=== PATIENT | female | born 1955 | race Caucasian/White ===

== ENCOUNTER 2021-09-30 12:13 | Inpatient (IN) ==
[2021-09-30] MEDS ORDERED: FLAGYL IV PREMIX 500 MG BAG 500 MG/100 ML BAG IV ONE ×2 (12:41→13:19)
[2021-09-30] MEDS ORDERED: CHRONULAC PO ONE (12:41)
[2021-09-30 12:52] LABS: AMMONIA 221 umol/L (11-32)
[2021-09-30 12:54] LABS: BASOPHILS % (AUTO) 0.4 % (0.2-1.0); BLOOD UREA NITROGEN 51 mg/dL (7-18); CARBON DIOXIDE 24.2 mmol/L (21-32); CHLORIDE 95 mmol/L (98-107); COR NA(FOR HYPERGLY) 137 mmol/L (136-145); CREATININE 1.63 mg/dL (0.55-1.02); EOSINOPHILS % (AUTO) 0.7 % (0.9-2.9); HEMATOCRIT 30.5 % (36.0-47.0); HEMOGLOBIN 10.9 g/dL (12.0-16.0); LYMPHOCYTES # (AUTO) 0.7 X10^3/uL (1.3-2.9); LYMPHOCYTES % (AUTO) 21.2 % (21.0-51.0); MEAN CORPUSCULAR HEMOGLOBIN 37.1 pg (27.0-34.0); MEAN CORPUSCULAR HGB CONC 35.8 g/dL (33.0-35.0); MEAN CORPUSCULAR VOLUME 103.7 fL (80.0-100.0); MEAN PLATELET VOLUME 7.9 fL (7.4-11.0); MONOCYTES # (AUTO) 0.3 x10^3/uL (0.3-0.8); MONOCYTES % (AUTO) 8.9 % (0.0-13.0); NEUTROPHILS # (AUTO) 2.2 x10^3/uL (2.2-4.8); NEUTROPHILS % (AUTO) 68.8 % (42.0-75.0); RED BLOOD COUNT 2.94 X10^6/uL (3.5-5.4); RED CELL DISTRIBUTION WIDTH 26.3 % (11.6-16.5); SODIUM 134 mmol/L (136-145); WHITE BLOOD COUNT 3.2 X10^3/uL (3.6-10.0); eGFR NON BLACK RACES 34 (>60)
--- NOTE | 2021-09-30 12:57 | CT ---
HISTORYUnresponsiveSTUDYCT head without contrastTechnique: Axial noncontrast images with coronal and sagittal reformats. Dose reduction procedures were used with mA/kv adjusted for body size.[id number] is soft tissue swelling over the left frontal bone extrinsically representing a change from the prior examination. The underlying frontal bone and remainder of the calvarium is intact. The visualized sinuses are clear. The ventricles are normal in size shape and position. There is slight decreased attenuation in the periventricular white matter suggestive of small vessel vascular disease. There are no focal areas of abnormal attenuation to suggest recent or remote CVA, hemorrhage, contusion, mass lesion, or extra-axial fluid collection.IMPRESSIONNo acute intracranial abnormalityMild small vessel diseaseSoft tissue swelling over the left frontal bone extrinsically with no underlying bony abnormality identifiedElectronically signed by: MIGUE VILLALOBOS (Sep 30, 2021 12:55:15)
[2021-09-30 13:17] LABS: ALANINE AMINOTRANSFERASE 116 Units/L (12-78); ALBUMIN 3.8 g/dL (3.4-5.0); ALKALINE PHOSPHATASE 244 Units/L (46-116); ASPARTATE AMINO TRANSFERASE 93 Units/L (15-37); TOTAL PROTEIN 6.6 g/dL (6.4-8.2)
[2021-09-30 13:19] LABS: AMYLASE 88 Units/L (25-115); LIPASE 191 Units/L (73-393)
[2021-09-30] MEDS ORDERED: CHRONULAC ONE (13:19)
[2021-09-30 13:21] LABS: ANISOCYTOSIS 3+; PLATELET MORPHOLOGY COMMENT NORMAL (NORMAL); POIKILOCYTOSIS 1+; SCHISTOCYTES PRESENT
[2021-09-30 13:24] LABS: BILIRUBIN,URINE NEGATIVE (NEGATIVE); BLOOD/HEMOGLOBIN,URINE NEGATIVE (NEGATIVE); GLUCOSE, URINE NEGATIVE (NEGATIVE); KETONES,URINE NEGATIVE (NEGATIVE); LEUKOCYTE ESTERASE ,URINE NEGATIVE (NEGATIVE); NITRITES,URINE NEGATIVE (NEGATIVE); PROTEIN,URINE NEGATIVE (NEGATIVE); UROBILINOGEN,URINE 1+ (NORMAL)
[2021-09-30 13:27] LABS: APPEARANCE,URINE CLEAR (CLEAR); COLOR,URINE YELLOW (YELLOW)
--- NOTE | 2021-09-30 13:54 | RAD ---
HISTORYNG tube placementSTUDYChest AP [id number]/29/2021FINDINGSTher e is a nasogastric tube with its tip and side hole just barely within the stomach. Advancement is recommended for optimal performance. Heart size is normal. Corinne are normal. Lungs are somewhat hypoinflated. Bilateral interstitial infiltrates are present not significantly different from the prior examination considering a difference in film technique. No alveolar infiltrates or pleural effusions are identified. Bony thorax is unremarkable.IMPRESSIONNasogastric tube tip and side port just barely within the stomach. Advancement is recommended.Bilateral interstitial infiltrates unchanged from prior examination considering a difference in film technique.Electronically signed by: MIGUE VILLALOBOS (Sep 30, 2021 13:52:41)
[2021-09-30 13:56] LABS: ABG BASE EXCESS 5.8 mmol/L (-2.0-2.0); ABG HCO3 28.2 mmol/L (22-26)
[2021-09-30 13:57] LABS: ABG ALLEN TEST POS
[2021-09-30] MEDS ORDERED: PROAMATINE PO SCH (16:15)
[2021-09-30] MEDS ORDERED: NEOMYCIN 500 MG NG SCH (17:00)
[2021-09-30 17:18] VITALS: BMI 20.2
--- NOTE | 2021-09-30 17:22 | RAD ---
HISTORYng Tube advancementSTUDYKUBCOMPARISONCT abdomen/pelvis, September 05, 2021TECHNIQUEAP supine projection, 1 imageFINDINGSGas and stool in non-distended colon.Gas in scattered loops of non-distended small bowel.No gross free air.No abnormal calcifications.No acute osseous abnormality.Nasogastric tube tip is in the distal body of the stomach.Metallic stent in the right upper quadrant.IMPRESSIONNonspecific bowel gas pattern. Nasogastric tube tip is in the distal body of the stomach.Electronically signed by: Seven Verma (Sep 30, 2021 17:20:04)
[2021-09-30] MEDS: CHRONULAC NG SCH ×2 (18:30→20:46)
[2021-09-30] MEDS: NS 1,000 ML IV 1,000 ML IV SCH (18:43)
[2021-09-30] MEDS: ALDACTONE TAB 25 MG PO SCH (20:46)
[2021-09-30] MEDS: FLAGYL IV PREMIX 500 MG BAG 500 MG/100 ML BAG IV SCH (20:46)
[2021-09-30] MEDS: XIFAXAN PO SCH (20:46)
[2021-10-01] MEDS: NS 1,000 ML IV 1,000 ML IV SCH ×3 (03:50→17:59)
[2021-10-01] MEDS: FLAGYL IV PREMIX 500 MG BAG 500 MG/100 ML BAG IV SCH ×4 (03:50→20:24)
[2021-10-01 06:48] LABS: CALCIUM 9.1 mg/dL (8.5-10.1); CARBON DIOXIDE 23.7 mmol/L (21-32); CREATININE 1.33 mg/dL (0.55-1.02)
[2021-10-01 06:57] LABS: BASOPHILS % (AUTO) 0.3 % (0.2-1.0); EOSINOPHILS # (AUTO) 0.1 x10^3/uL (0.0-0.2); EOSINOPHILS % (AUTO) 2.1 % (0.9-2.9); HEMATOCRIT 24.1 % (36.0-47.0); HEMOGLOBIN 8.7 g/dL (12.0-16.0); LYMPHOCYTES # (AUTO) 0.7 X10^3/uL (1.3-2.9); LYMPHOCYTES % (AUTO) 20.1 % (21.0-51.0); MEAN CORPUSCULAR HEMOGLOBIN 37.4 pg (27.0-34.0); MEAN CORPUSCULAR HGB CONC 36.1 g/dL (33.0-35.0); MEAN CORPUSCULAR VOLUME 103.7 fL (80.0-100.0); MEAN PLATELET VOLUME 7.8 fL (7.4-11.0); MONOCYTES # (AUTO) 0.4 x10^3/uL (0.3-0.8); MONOCYTES % (AUTO) 11.9 % (0.0-13.0); NEUTROPHILS # (AUTO) 2.4 x10^3/uL (2.2-4.8); NEUTROPHILS % (AUTO) 65.6 % (42.0-75.0); RED BLOOD COUNT 2.33 X10^6/uL (3.5-5.4); RED CELL DISTRIBUTION WIDTH 27.5 % (11.6-16.5); WHITE BLOOD COUNT 3.7 X10^3/uL (3.6-10.0)
[2021-10-01 07:15] LABS: ALBUMIN 3.1 g/dL (3.4-5.0); COR CA(FOR HYPOALB) 9.8 mg/dL (8.5-10.1); TOTAL PROTEIN 5.6 g/dL (6.4-8.2)
[2021-10-01 07:16] LABS: PLATELET MORPHOLOGY COMMENT NORMAL (NORMAL)
[2021-10-01 07:17] LABS: ANISOCYTOSIS 3+; POIKILOCYTOSIS 1+
[2021-10-01] MEDS: ALDACTONE TAB 25 MG PO SCH ×2 (08:02→20:24)
[2021-10-01] MEDS: CHRONULAC NG SCH ×4 (08:03→20:24)
[2021-10-01] MEDS: PriLOSEC PO SCH (08:04)
[2021-10-01] MEDS: VITAMIN D3 25 mcg (1,000 UNITS) PO SCH (08:04)
[2021-10-01] MEDS: ZINC SULFATE PO SCH (08:05)
[2021-10-01] MEDS: XIFAXAN PO SCH ×2 (08:05→20:25)
[2021-10-01 11:43] LABS: CKMB % 0.7 % (<4); CREATINE KINASE MB 2.3 ng/mL (0-4.0)
[2021-10-01 17:40] LABS: CKMB % 0.7 % (<4); CREATINE KINASE MB 2.3 ng/mL (0-4.0)
[2021-10-01] MEDS: PROVENTIL NEB TX 0.083% 2.5MG/ 3ML NEB PRN (20:42)
[2021-10-01 23:21] LABS: CKMB % 0.6 % (<4); CREATINE KINASE MB 1.6 ng/mL (0-4.0)
[2021-10-02] MEDS ORDERED: ULTRAM PO PRN (03:49)
[2021-10-02] MEDS: NS 1,000 ML IV 1,000 ML IV SCH ×2 (03:49→05:09)
[2021-10-02] MEDS: FLAGYL IV PREMIX 500 MG BAG 500 MG/100 ML BAG IV SCH ×4 (03:49→20:29)
[2021-10-02] MEDS ORDERED: ULTRAM ONE (03:54)
[2021-10-02 06:03] LABS: BASOPHILS % (AUTO) 0.5 % (0.2-1.0); EOSINOPHILS # (AUTO) 0.1 x10^3/uL (0.0-0.2); HEMATOCRIT 21.9 % (36.0-47.0); HEMOGLOBIN 7.8 g/dL (12.0-16.0); LYMPHOCYTES # (AUTO) 0.6 X10^3/uL (1.3-2.9); LYMPHOCYTES % (AUTO) 24.2 % (21.0-51.0); MEAN CORPUSCULAR HEMOGLOBIN 37.4 pg (27.0-34.0); MEAN CORPUSCULAR HGB CONC 35.6 g/dL (33.0-35.0); MEAN PLATELET VOLUME 7.9 fL (7.4-11.0); MONOCYTES # (AUTO) 0.3 x10^3/uL (0.3-0.8); NEUTROPHILS # (AUTO) 1.5 x10^3/uL (2.2-4.8); NEUTROPHILS % (AUTO) 60.3 % (42.0-75.0); RED BLOOD COUNT 2.09 X10^6/uL (3.5-5.4); RED CELL DISTRIBUTION WIDTH 26.1 % (11.6-16.5); WHITE BLOOD COUNT 2.5 X10^3/uL (3.6-10.0)
[2021-10-02 06:31] LABS: BLOOD UREA NITROGEN 27 mg/dL (7-18); CALCIUM 8.6 mg/dL (8.5-10.1); CARBON DIOXIDE 24.1 mmol/L (21-32); CHLORIDE 108 mmol/L (98-107); COR NA(FOR HYPERGLY) 146 mmol/L (136-145); CREATININE 0.92 mg/dL (0.55-1.02); SODIUM 142 mmol/L (136-145); eGFR NON BLACK RACES > 60 (>60)
[2021-10-02 06:36] LABS: AMMONIA 48 umol/L (11-32)
[2021-10-02 06:40] LABS: PLATELET MORPHOLOGY COMMENT NORMAL (NORMAL)
[2021-10-02 06:41] LABS: ANISOCYTOSIS 3+; POIKILOCYTOSIS SLIGHT
[2021-10-02] MEDS ORDERED: K-RIDER 10 MEQ/NS 100 ML 10 MEQ/100 ML BAG IV PRN (06:46)
[2021-10-02] MEDS ORDERED: K-DUR TAB 20 MEQ PO PRN (06:46)
[2021-10-02] MEDS ORDERED: POTASSIUM CHL 60 MEQ/NS 0.45% 500 ML IV PRN (06:46)
[2021-10-02] MEDS ORDERED: MICRO K EXTEN CAP 10 MEQ PO PRN (06:46)
[2021-10-02] MEDS ORDERED: POTASSIUM CHLORIDE LIQ 20 MEQ UDC PO PRN (06:46)
[2021-10-02] MEDS ORDERED: KLOR-CON PO PRN (06:46)
[2021-10-02] MEDS ORDERED: POTASSIUM CHL 40 MEQ/NS 0.45% 500 ML IV PRN (06:46)
[2021-10-02 07:28] LABS: ALANINE AMINOTRANSFERASE 79 Units/L (12-78); ALBUMIN 2.9 g/dL (3.4-5.0); ALKALINE PHOSPHATASE 179 Units/L (46-116); ASPARTATE AMINO TRANSFERASE 60 Units/L (15-37); COR CA(FOR HYPOALB) 9.5 mg/dL (8.5-10.1); TOTAL PROTEIN 5.3 g/dL (6.4-8.2)
[2021-10-02] MEDS: ALDACTONE TAB 25 MG PO SCH ×2 (09:28→20:29)
[2021-10-02] MEDS: ZINC SULFATE PO SCH (09:29)
[2021-10-02] MEDS: PriLOSEC PO SCH (09:29)
[2021-10-02] MEDS: XIFAXAN PO SCH ×2 (09:29→20:29)
[2021-10-02] MEDS: VITAMIN D3 25 mcg (1,000 UNITS) PO SCH (09:29)
[2021-10-02] MEDS: CHRONULAC NG SCH ×4 (09:59→20:29)
[2021-10-02] MEDS: NovoLIN R (or HumuLIN R) SUBCUT PRN ×2 (11:45→20:30)
[2021-10-02 16:38] LABS: HEMATOCRIT 22.8 % (36.0-47.0); HEMOGLOBIN 8.1 g/dL (12.0-16.0)
[2021-10-02] MEDS: MAGNESIUM SULFATE 1 GRAM/100 mL PREMIX 1 G/100 ML BAG IV PRN ×2 (19:47→22:41)
[2021-10-02] MEDS ORDERED: MIRAPEX TAB 1 MG PO SCH (21:00)
[2021-10-03] MEDS: MAGNESIUM SULFATE 1 GRAM/100 mL PREMIX 1 G/100 ML BAG IV PRN ×2 (01:17→02:24)
[2021-10-03] MEDS: FLAGYL IV PREMIX 500 MG BAG 500 MG/100 ML BAG IV SCH ×2 (03:02→08:22)
[2021-10-03 06:35] LABS: BASOPHILS % (AUTO) 0.5 % (0.2-1.0); EOSINOPHILS # (AUTO) 0.1 x10^3/uL (0.0-0.2); EOSINOPHILS % (AUTO) 4.6 % (0.9-2.9); HEMATOCRIT 22.6 % (36.0-47.0); LYMPHOCYTES # (AUTO) 0.7 X10^3/uL (1.3-2.9); LYMPHOCYTES % (AUTO) 25.6 % (21.0-51.0); MEAN CORPUSCULAR HEMOGLOBIN 37.7 pg (27.0-34.0); MEAN CORPUSCULAR HGB CONC 35.3 g/dL (33.0-35.0); MEAN CORPUSCULAR VOLUME 106.8 fL (80.0-100.0); MEAN PLATELET VOLUME 7.6 fL (7.4-11.0); MONOCYTES # (AUTO) 0.3 x10^3/uL (0.3-0.8); MONOCYTES % (AUTO) 12.2 % (0.0-13.0); NEUTROPHILS # (AUTO) 1.6 x10^3/uL (2.2-4.8); NEUTROPHILS % (AUTO) 57.1 % (42.0-75.0); RED BLOOD COUNT 2.12 X10^6/uL (3.5-5.4); RED CELL DISTRIBUTION WIDTH 26.1 % (11.6-16.5); WHITE BLOOD COUNT 2.7 X10^3/uL (3.6-10.0)
[2021-10-03 06:44] LABS: AMMONIA 38 umol/L (11-32)
[2021-10-03 06:56] LABS: ALANINE AMINOTRANSFERASE 70 Units/L (12-78); ALKALINE PHOSPHATASE 171 Units/L (46-116); ASPARTATE AMINO TRANSFERASE 55 Units/L (15-37); BLOOD UREA NITROGEN 15 mg/dL (7-18); CALCIUM 8.3 mg/dL (8.5-10.1); CARBON DIOXIDE 23.5 mmol/L (21-32); CHLORIDE 111 mmol/L (98-107); COR CA(FOR HYPOALB) 9.1 mg/dL (8.5-10.1); COR NA(FOR HYPERGLY) 146 mmol/L (136-145); MAGNESIUM 2.1 mg/dL (1.7-2.9); SODIUM 144 mmol/L (136-145); TOTAL PROTEIN 5.3 g/dL (6.4-8.2); eGFR NON BLACK RACES > 60 (>60)
[2021-10-03 07:37] LABS: PLATELET MORPHOLOGY COMMENT NORMAL (NORMAL)
[2021-10-03 07:38] LABS: ANISOCYTOSIS 2+
[2021-10-03 07:39] LABS: POIKILOCYTOSIS SLIGHT
[2021-10-03 07:46] VITALS: BP 125/60
[2021-10-03] MEDS: ALDACTONE TAB 25 MG PO SCH (08:21)
[2021-10-03] MEDS: PriLOSEC PO SCH (08:22)
[2021-10-03] MEDS: CHRONULAC NG SCH (08:22)
[2021-10-03] MEDS: VITAMIN D3 25 mcg (1,000 UNITS) PO SCH (08:23)
[2021-10-03] MEDS: XIFAXAN PO SCH (08:23)
[2021-10-03] MEDS: ZINC SULFATE PO SCH (08:23)
[2021-10-03] MEDS: PROVENTIL NEB TX 0.083% 2.5MG/ 3ML NEB PRN (08:40)
--- NOTE | 2021-10-23 13:13 | DR.H&P ---
H&P History & Physical for Day of: H&P Date: 09/30/21 Chief Complaint Chief Complaint: Unresponsive Allergies Allergies Allergy/AdvReac Type Severity Reaction Status Date / Time aspirin Allergy Verified 07/28/21 12:48 codeine Allergy Verified 07/28/21 12:48 iodine Allergy Verified 07/28/21 12:48 latex Allergy Verified 07/28/21 12:48 mushroom Allergy Verified 07/28/21 13:28 NSAIDS (Non-Steroidal Allergy Verified 07/28/21 12:48 Anti-Inflamma Penicillins Allergy Verified 07/28/21 12:48 rice Allergy Verified 07/28/21 13:28 Sulfa (Sulfonamide Allergy Verified 07/28/21 12:48 Antibiotics) [SULFA] History of Present Illness History of Present Illness: This is a 65 yo wf with a hx of chronic liver failure and liver cirrhosis. Today her ammonia level is greater than 200 causing her to have hepatic encephalopathy. She was previously on a liver transplant list at [place] in [place] but has recently been taken off because of multiple medical problems. Past Medical History Past Medical History: Diabetes and Liver Disease Past Surgical History Surgical History: Hysterectomy and Ortho Surgery Family History Family Medical History: Diabetes Mellitus and Coronary Artery Disease Social History Does patient currently use any type of tobacco product: No Have you used tobacco products in the last 12 months: No Alcohol Use: None Drug Use: None Medications Home Medications: aspirin Allergy (Verified 07/28/21 12:48) codeine Allergy (Verified 07/28/21 12:48) iodine Allergy (Verified 07/28/21 12:48) latex Allergy (Verified 07/28/21 12:48) mushroom Allergy (Verified 07/28/21 13:28) NSAIDS (Non-Steroidal Anti-Inflamma Allergy (Verified 07/28/21 12:48) Penicillins Allergy (Verified 07/28/21 12:48) rice Allergy (Verified 07/28/21 13:28) Sulfa (Sulfonamide Antibiotics) [SULFA] Allergy (Verified 07/28/21 12:48) CONTINUE taking the following medications Humalog U-100 Insulin See Rx Instructions .ROUTE .COMPLEX 09/30/21 [History] Lantus U-100 Insulin 24 unit SUBCUT HS 09/30/21 [History] albuterol 90 mcg INHALATION Q6H PRN 09/30/21 [History] midodrine 15 mg PO Q8H 09/30/21 [History] omeprazole 20 mg PO DAILY 09/30/21 [History] zinc 50 mg PO DAILY 09/30/21 [History] furosemide 80 mg PO BID 10/01/21 [History] pramipexole 1 mg PO HS 10/01/21 [History] Labs Result Diagrams: 10/03/21 06:05 10/03/21 06:05 Labs: Laboratory WBC 2.7 X10^3/uL (3.6-10.0) L 10/03/21 06:05 RBC 2.12 X10^6/uL (3.5-5.4) L 10/03/21 06:05 Hgb 8.0 g/dL (12.0-16.0) L 10/03/21 06:05 Hct 22.6 % (36.0-47.0) L 10/03/21 06:05 MCV 106.8 fL (80.0-100.0) H 10/03/21 06:05 MCH 37.7 pg (27.0-34.0) H 10/03/21 06:05 MCHC 35.3 g/dL (33.0-35.0) H 10/03/21 06:05 RDW 26.1 % (11.6-16.5) H 10/03/21 06:05 Plt Count 86 X10^3/uL (150.0-450.0) L 10/03/21 06:05 Plt Count Comment Decreased (ADEQUATE) A 10/03/21 06:05 MPV 7.6 fL (7.4-11.0) 10/03/21 06:05 Neut % (Auto) 57.1 % (42.0-75.0) 10/03/21 06:05 Lymph % (Auto) 25.6 % (21.0-51.0) 10/03/21 06:05 [place] % (Auto) 12.2 % (0.0-13.0) 10/03/21 06:05 Eos % (Auto) 4.6 % (0.9-2.9) H 10/03/21 06:05 Baso % (Auto) 0.5 % (0.2-1.0) 10/03/21 06:05 Neut # (Auto) 1.6 x10^3/uL (2.2-4.8) L 10/03/21 06:05 Lymph # (Auto) 0.7 X10^3/uL (1.3-2.9) L 10/03/21 06:05 [place] # (Auto) 0.3 x10^3/uL (0.3-0.8) 10/03/21 06:05 Eos # (Auto) 0.1 x10^3/uL (0.0-0.2) 10/03/21 06:05 Baso # (Auto) 0.0 X10^3/uL (0.0-0.1) 10/03/21 06:05 Absolute Nucleated RBC 0.4 /100WBC 10/03/21 06:05 Plt Morphology Comment Normal (NORMAL) 10/03/21 06:05 RBC Morphology Abnormal (NORMAL) A 10/03/21 06:05 Poikilocytosis Slight A 10/03/21 06:05 Anisocytosis 2+ A 10/03/21 06:05 Macrocytosis 1+ A 10/03/21 06:05 Schistocytes Present 09/30/21 12:30 PT 17.3 SECONDS (11.8-14.3) 09/30/21 12:30 INR Target Range - 09/30/21 12:30 INR 1.49 (0.8-1.3) H 09/30/21 12:30 APTT 33.9 SECONDS (22.9-36.5) 09/30/21 12:30 PTT Comment - 09/30/21 12:30 Sample Site Rra 09/30/21 13:51 ABG pH 7.540 (7.35-7.45) H 09/30/21 13:51 ABG pCO2 33.0 mmHg (35.0-45.0) L 09/30/21 13:51 ABG pO2 103.0 mmHg (80.0-100.0) H 09/30/21 13:51 ABG HCO3 28.2 mmol/L (22-26) H 09/30/21 13:51 ABG O2 Saturation 99.0 % (90-100) 09/30/21 13:51 ABG Base Excess 5.8 mmol/L (-2.0-2.0) H 09/30/21 13:51 Juan Carlos Test Pos 09/30/21 13:51 A-a Gradient 5.0 mmHg 09/30/21 13:51 FiO2 21.0 09/30/21 13:51 Blood Gas Comments 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,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 09/30/21 13:51 Sodium 144 mmol/L (136-145) 10/03/21 06:05 Corrected Sodium 146 mmol/L (136-145) H 10/03/21 06:05 Potassium 3.9 mmol/L (3.5-5.1) 10/03/21 06:05 Chloride 111 mmol/L (98-107) H 10/03/21 06:05 Carbon Dioxide 23.5 mmol/L (21-32) 10/03/21 06:05 BUN 15 mg/dL (7-18) 10/03/21 06:05 Creatinine 0.80 mg/dL (0.55-1.02) 10/03/21 06:05 Est GFR (MDRD) Af Amer > 60 (>60) 10/03/21 06:05 Est GFR (MDRD) Non-Af > 60 (>60) 10/03/21 06:05 Glucose 164 mg/dL (65-99) H 10/03/21 06:05 POC Glucose (mg/dL) 148 mg/dL (65-99) H 10/03/21 05:29 Calcium 8.3 mg/dL (8.5-10.1) L 10/03/21 06:05 Corrected Calcium 9.1 mg/dL (8.5-10.1) 10/03/21 06:05 Magnesium 2.1 mg/dL (1.7-2.9) 10/03/21 06:05 Total Bilirubin 4.90 mg/dL (0.2-1.0) H 10/03/21 06:05 AST 55 Units/L (15-37) H 10/03/21 06:05 ALT 70 Units/L (12-78) 10/03/21 06:05 Alkaline Phosphatase 171 Units/L (46-116) H 10/03/21 06:05 Ammonia 38 umol/L (11-32) H 10/03/21 06:05 Creatine Kinase 250 Units/L (26-192) H 10/01/21 22:40 CK-MB (CK-2) 1.6 ng/mL (0-4.0) 10/01/21 22:40 CK/CKMB % Calc 0.6 % (<4) 10/01/21 22:40 Troponin I High Sens 17.6 ng/L (4.0-60.0) 10/01/21 22:40 Total Protein 5.3 g/dL (6.4-8.2) L 10/03/21 06:05 Albumin 3.0 g/dL (3.4-5.0) L 10/03/21 06:05 Globulin 2.3 g/dL (2.5-4.5) L 10/03/21 06:05 Albumin/Globulin Ratio 1.3 Ratio (1.1-2.1) 10/03/21 06:05 Amylase 88 Units/L (25-115) 09/30/21 12:30 Lipase 191 Units/L (73-393) 09/30/21 12:30 Specimen Type Catherized urine 09/30/21 13:15 Urine Color Yellow (YELLOW) 09/30/21 13:15 Urine Appearance Clear (CLEAR) 09/30/21 13:15 Urine pH 7.0 (5.0 - 8.0) 09/30/21 13:15 Ur Specific [place] 1.010 (1.000-1.030) 09/30/21 13:15 Urine Protein Negative (NEGATIVE) 09/30/21 13:15 Urine Glucose (UA) Negative (NEGATIVE) 09/30/21 13:15 Urine Ketones Negative (NEGATIVE) 09/30/21 13:15 Urine Occult Blood Negative (NEGATIVE) 09/30/21 13:15 Urine Nitrite Negative (NEGATIVE) 09/30/21 13:15 Urine Bilirubin Negative (NEGATIVE) 09/30/21 13:15 Urine Urobilinogen 1+ (NORMAL) 09/30/21 13:15 Ur Leukocyte Esterase Negative (NEGATIVE) 09/30/21 13:15 SARS CoV-2 RNA Rapid NATAYLA Negative (NEGATIVE) 09/30/21 13:00 Review of Systems Constitutional: No Symptoms Reported Eyes: No Symptoms Reported ENT: No Symptoms Reported Respiratory: No Symptoms Reported Cardiovascular: No Symptoms Reported Gastrointestinal: No Symptoms Reported Genitourinary: No Symptoms Reported Musculoskeletal: No Symptoms Reported Skin: No Symptoms Reported Neurological: Confusion Physical Exam Vital Signs: Temperature 98.9 F Pulse Rate [Left Brachial] 80 Pulse Rate 100 Respiratory Rate 22 Blood Pressure [Right Arm] 125/60 Blood Pressure 139/65 O2 Sat by Pulse Oximetry 97 Oriented: Not Oriented Eyes: Normal Ear: Normal Nose: Normal Throat: Normal Respiratory: Clear Throughout Cardiovascular: Normal : Normal Auscultation: Bowel Sounds: Normal Palpation: Normal Tenderness: Normal Skin: Normal Musculoskeletal: Instability Psychiatric: Other (unresponsive) Affect: Quiet Speech Pattern: Unclear Assessment/Plan (1) Cirrhosis of liver: Status: Acute (2) Encephalopathy, hepatic: Status: Resolved Plan: Po lactulose and check daily ammonia levels. (3) Anemia: Qualifiers: Anemia type: unspecified type Qualified Code(s): D64.9 - Anemia, unspecified Status: Acute Plan: Monitor Hb (4) DM2 (diabetes mellitus, type 2): Status: Acute Plan: Insulin sliding scale.
--- NOTE | 2021-10-23 13:17 | PCM.PROG ---
Progress Note Progress Note for Day of Date of Exam: 10/01/21 Subjective Subjective: patient is still confused this am. Ammonia is down to 62 this am from 221. Will continue IVF and PO Lactulose at this time. Past Medical Family Social History Past Med/Fam/Surg Hx: No changes since H&P Allergies: Allergies aspirin Allergy (Verified 07/28/21 12:48) codeine Allergy (Verified 07/28/21 12:48) iodine Allergy (Verified 07/28/21 12:48) latex Allergy (Verified 07/28/21 12:48) mushroom Allergy (Verified 07/28/21 13:28) NSAIDS (Non-Steroidal Anti-Inflamma Allergy (Verified 07/28/21 12:48) Penicillins Allergy (Verified 07/28/21 12:48) rice Allergy (Verified 07/28/21 13:28) Sulfa (Sulfonamide Antibiotics) [SULFA] Allergy (Verified 07/28/21 12:48) Review of Systems ROS: No change since H&P Vital Signs and I&O's Vital Signs: Temperature 98.9 F Pulse Rate [Left Brachial] 80 Pulse Rate 100 Respiratory Rate 22 Blood Pressure [Right Arm] 125/60 Blood Pressure 139/65 O2 Sat by Pulse Oximetry 97 Physical Exam Oriented: Not Oriented Eyes: Normal Ear: Normal Nose: Normal Throat: Normal Cardiovascular: Normal : Normal Auscultation: Bowel Sounds: Normal Tenderness: Normal Skin: Normal Musculoskeletal: Instability Psychiatric: Other (unresponsive) Affect: Quiet Speech Pattern: Unclear Laboratory and Diagnostics Result Diagrams: 10/03/21 06:05 10/03/21 06:05 Labs: Laboratory WBC 2.7 X10^3/uL (3.6-10.0) L 10/03/21 06:05 RBC 2.12 X10^6/uL (3.5-5.4) L 10/03/21 06:05 Hgb 8.0 g/dL (12.0-16.0) L 10/03/21 06:05 Hct 22.6 % (36.0-47.0) L 10/03/21 06:05 MCV 106.8 fL (80.0-100.0) H 10/03/21 06:05 MCH 37.7 pg (27.0-34.0) H 10/03/21 06:05 MCHC 35.3 g/dL (33.0-35.0) H 10/03/21 06:05 RDW 26.1 % (11.6-16.5) H 10/03/21 06:05 Plt Count 86 X10^3/uL (150.0-450.0) L 10/03/21 06:05 Plt Count Comment Decreased (ADEQUATE) A 10/03/21 06:05 MPV 7.6 fL (7.4-11.0) 10/03/21 06:05 Neut % (Auto) 57.1 % (42.0-75.0) 10/03/21 06:05 Lymph % (Auto) 25.6 % (21.0-51.0) 10/03/21 06:05 [place] % (Auto) 12.2 % (0.0-13.0) 10/03/21 06:05 Eos % (Auto) 4.6 % (0.9-2.9) H 10/03/21 06:05 Baso % (Auto) 0.5 % (0.2-1.0) 10/03/21 06:05 Neut # (Auto) 1.6 x10^3/uL (2.2-4.8) L 10/03/21 06:05 Lymph # (Auto) 0.7 X10^3/uL (1.3-2.9) L 10/03/21 06:05 [place] # (Auto) 0.3 x10^3/uL (0.3-0.8) 10/03/21 06:05 Eos # (Auto) 0.1 x10^3/uL (0.0-0.2) 10/03/21 06:05 Baso # (Auto) 0.0 X10^3/uL (0.0-0.1) 10/03/21 06:05 Absolute Nucleated RBC 0.4 /100WBC 10/03/21 06:05 Plt Morphology Comment Normal (NORMAL) 10/03/21 06:05 RBC Morphology Abnormal (NORMAL) A 10/03/21 06:05 Poikilocytosis Slight A 10/03/21 06:05 Anisocytosis 2+ A 10/03/21 06:05 Macrocytosis 1+ A 10/03/21 06:05 Schistocytes Present 09/30/21 12:30 PT 17.3 SECONDS (11.8-14.3) 09/30/21 12:30 INR Target Range - 09/30/21 12:30 INR 1.49 (0.8-1.3) H 09/30/21 12:30 APTT 33.9 SECONDS (22.9-36.5) 09/30/21 12:30 PTT Comment - 09/30/21 12:30 Sample Site Rra 09/30/21 13:51 ABG pH 7.540 (7.35-7.45) H 09/30/21 13:51 ABG pCO2 33.0 mmHg (35.0-45.0) L 09/30/21 13:51 ABG pO2 103.0 mmHg (80.0-100.0) H 09/30/21 13:51 ABG HCO3 28.2 mmol/L (22-26) H 09/30/21 13:51 ABG O2 Saturation 99.0 % (90-100) 09/30/21 13:51 ABG Base Excess 5.8 mmol/L (-2.0-2.0) H 09/30/21 13:51 Juan Carlos Test Pos 09/30/21 13:51 A-a Gradient 5.0 mmHg 09/30/21 13:51 FiO2 21.0 09/30/21 13:51 Blood Gas Comments 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,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 09/30/21 13:51 Sodium 144 mmol/L (136-145) 10/03/21 06:05 Corrected Sodium 146 mmol/L (136-145) H 10/03/21 06:05 Potassium 3.9 mmol/L (3.5-5.1) 10/03/21 06:05 Chloride 111 mmol/L (98-107) H 10/03/21 06:05 Carbon Dioxide 23.5 mmol/L (21-32) 10/03/21 06:05 BUN 15 mg/dL (7-18) 10/03/21 06:05 Creatinine 0.80 mg/dL (0.55-1.02) 10/03/21 06:05 Est GFR (MDRD) Af Amer > 60 (>60) 10/03/21 06:05 Est GFR (MDRD) Non-Af > 60 (>60) 10/03/21 06:05 Glucose 164 mg/dL (65-99) H 10/03/21 06:05 POC Glucose (mg/dL) 148 mg/dL (65-99) H 10/03/21 05:29 Calcium 8.3 mg/dL (8.5-10.1) L 10/03/21 06:05 Corrected Calcium 9.1 mg/dL (8.5-10.1) 10/03/21 06:05 Magnesium 2.1 mg/dL (1.7-2.9) 10/03/21 06:05 Total Bilirubin 4.90 mg/dL (0.2-1.0) H 10/03/21 06:05 AST 55 Units/L (15-37) H 10/03/21 06:05 ALT 70 Units/L (12-78) 10/03/21 06:05 Alkaline Phosphatase 171 Units/L (46-116) H 10/03/21 06:05 Ammonia 38 umol/L (11-32) H 10/03/21 06:05 Creatine Kinase 250 Units/L (26-192) H 10/01/21 22:40 CK-MB (CK-2) 1.6 ng/mL (0-4.0) 10/01/21 22:40 CK/CKMB % Calc 0.6 % (<4) 10/01/21 22:40 Troponin I High Sens 17.6 ng/L (4.0-60.0) 10/01/21 22:40 Total Protein 5.3 g/dL (6.4-8.2) L 10/03/21 06:05 Albumin 3.0 g/dL (3.4-5.0) L 10/03/21 06:05 Globulin 2.3 g/dL (2.5-4.5) L 10/03/21 06:05 Albumin/Globulin Ratio 1.3 Ratio (1.1-2.1) 10/03/21 06:05 Amylase 88 Units/L (25-115) 09/30/21 12:30 Lipase 191 Units/L (73-393) 09/30/21 12:30 Specimen Type Catherized urine 09/30/21 13:15 Urine Color Yellow (YELLOW) 09/30/21 13:15 Urine Appearance Clear (CLEAR) 09/30/21 13:15 Urine pH 7.0 (5.0 - 8.0) 09/30/21 13:15 Ur Specific [place] 1.010 (1.000-1.030) 09/30/21 13:15 Urine Protein Negative (NEGATIVE) 09/30/21 13:15 Urine Glucose (UA) Negative (NEGATIVE) 09/30/21 13:15 Urine Ketones Negative (NEGATIVE) 09/30/21 13:15 Urine Occult Blood Negative (NEGATIVE) 09/30/21 13:15 Urine Nitrite Negative (NEGATIVE) 09/30/21 13:15 Urine Bilirubin Negative (NEGATIVE) 09/30/21 13:15 Urine Urobilinogen 1+ (NORMAL) 09/30/21 13:15 Ur Leukocyte Esterase Negative (NEGATIVE) 09/30/21 13:15 SARS CoV-2 RNA Rapid NATALYA Negative (NEGATIVE) 09/30/21 13:00 Radiology Reviewed: Yes Plan (1) Cirrhosis of liver: Status: Acute (2) Encephalopathy, hepatic: Status: Resolved Plan: Po lactulose and check daily ammonia levels. (3) Anemia: Status: Acute Qualifiers: Anemia type: unspecified type Qualified Code(s): D64.9 - Anemia, unspecified Plan: Monitor Hb (4) DM2 (diabetes mellitus, type 2): Status: Acute Plan: Insulin sliding scale.
--- NOTE | 2021-10-23 13:22 | PCM.PROG ---
Progress Note Progress Note for Day of Date of Exam: 10/02/21 Subjective Subjective: Patient is not confused this am. Ammonia is down to 48 this am from 62. Will continue IVF and PO Lactulose at this time. Patient reports she feels much better now. No acute problems overnight. Will plan on discharge home in 1-2 days when her ammonia level normalizes. Past Medical Family Social History Past Med/Fam/Surg Hx: No changes since H&P Allergies: Allergies aspirin Allergy (Verified 07/28/21 12:48) codeine Allergy (Verified 07/28/21 12:48) iodine Allergy (Verified 07/28/21 12:48) latex Allergy (Verified 07/28/21 12:48) mushroom Allergy (Verified 07/28/21 13:28) NSAIDS (Non-Steroidal Anti-Inflamma Allergy (Verified 07/28/21 12:48) Penicillins Allergy (Verified 07/28/21 12:48) rice Allergy (Verified 07/28/21 13:28) Sulfa (Sulfonamide Antibiotics) [SULFA] Allergy (Verified 07/28/21 12:48) Review of Systems ROS: No change since H&P Vital Signs and I&O's Vital Signs: Temperature 98.9 F Pulse Rate [Left Brachial] 80 Pulse Rate 100 Respiratory Rate 22 Blood Pressure [Right Arm] 125/60 Blood Pressure 139/65 O2 Sat by Pulse Oximetry 97 Physical Exam Oriented: Not Oriented Eyes: Normal Ear: Normal Nose: Normal Throat: Normal Cardiovascular: Normal : Normal Auscultation: Bowel Sounds: Normal Tenderness: Normal Skin: Normal Musculoskeletal: Instability Psychiatric: Other (unresponsive) Affect: Quiet Speech Pattern: Unclear Laboratory and Diagnostics Result Diagrams: 10/03/21 06:05 10/03/21 06:05 Labs: Laboratory WBC 2.7 X10^3/uL (3.6-10.0) L 10/03/21 06:05 RBC 2.12 X10^6/uL (3.5-5.4) L 10/03/21 06:05 Hgb 8.0 g/dL (12.0-16.0) L 10/03/21 06:05 Hct 22.6 % (36.0-47.0) L 10/03/21 06:05 MCV 106.8 fL (80.0-100.0) H 10/03/21 06:05 MCH 37.7 pg (27.0-34.0) H 10/03/21 06:05 MCHC 35.3 g/dL (33.0-35.0) H 10/03/21 06:05 RDW 26.1 % (11.6-16.5) H 10/03/21 06:05 Plt Count 86 X10^3/uL (150.0-450.0) L 10/03/21 06:05 Plt Count Comment Decreased (ADEQUATE) A 10/03/21 06:05 MPV 7.6 fL (7.4-11.0) 10/03/21 06:05 Neut % (Auto) 57.1 % (42.0-75.0) 10/03/21 06:05 Lymph % (Auto) 25.6 % (21.0-51.0) 10/03/21 06:05 [place] % (Auto) 12.2 % (0.0-13.0) 10/03/21 06:05 Eos % (Auto) 4.6 % (0.9-2.9) H 10/03/21 06:05 Baso % (Auto) 0.5 % (0.2-1.0) 10/03/21 06:05 Neut # (Auto) 1.6 x10^3/uL (2.2-4.8) L 10/03/21 06:05 Lymph # (Auto) 0.7 X10^3/uL (1.3-2.9) L 10/03/21 06:05 [place] # (Auto) 0.3 x10^3/uL (0.3-0.8) 10/03/21 06:05 Eos # (Auto) 0.1 x10^3/uL (0.0-0.2) 10/03/21 06:05 Baso # (Auto) 0.0 X10^3/uL (0.0-0.1) 10/03/21 06:05 Absolute Nucleated RBC 0.4 /100WBC 10/03/21 06:05 Plt Morphology Comment Normal (NORMAL) 10/03/21 06:05 RBC Morphology Abnormal (NORMAL) A 10/03/21 06:05 Poikilocytosis Slight A 10/03/21 06:05 Anisocytosis 2+ A 10/03/21 06:05 Macrocytosis 1+ A 10/03/21 06:05 Schistocytes Present 09/30/21 12:30 PT 17.3 SECONDS (11.8-14.3) 09/30/21 12:30 INR Target Range - 09/30/21 12:30 INR 1.49 (0.8-1.3) H 09/30/21 12:30 APTT 33.9 SECONDS (22.9-36.5) 09/30/21 12:30 PTT Comment - 09/30/21 12:30 Sample Site Rra 09/30/21 13:51 ABG pH 7.540 (7.35-7.45) H 09/30/21 13:51 ABG pCO2 33.0 mmHg (35.0-45.0) L 09/30/21 13:51 ABG pO2 103.0 mmHg (80.0-100.0) H 09/30/21 13:51 ABG HCO3 28.2 mmol/L (22-26) H 09/30/21 13:51 ABG O2 Saturation 99.0 % (90-100) 09/30/21 13:51 ABG Base Excess 5.8 mmol/L (-2.0-2.0) H 09/30/21 13:51 Juan Carlos Test Pos 09/30/21 13:51 A-a Gradient 5.0 mmHg 09/30/21 13:51 FiO2 21.0 09/30/21 13:51 Blood Gas Comments 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,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 09/30/21 13:51 Sodium 144 mmol/L (136-145) 10/03/21 06:05 Corrected Sodium 146 mmol/L (136-145) H 10/03/21 06:05 Potassium 3.9 mmol/L (3.5-5.1) 10/03/21 06:05 Chloride 111 mmol/L (98-107) H 10/03/21 06:05 Carbon Dioxide 23.5 mmol/L (21-32) 10/03/21 06:05 BUN 15 mg/dL (7-18) 10/03/21 06:05 Creatinine 0.80 mg/dL (0.55-1.02) 10/03/21 06:05 Est GFR (MDRD) Af Amer > 60 (>60) 10/03/21 06:05 Est GFR (MDRD) Non-Af > 60 (>60) 10/03/21 06:05 Glucose 164 mg/dL (65-99) H 10/03/21 06:05 POC Glucose (mg/dL) 148 mg/dL (65-99) H 10/03/21 05:29 Calcium 8.3 mg/dL (8.5-10.1) L 10/03/21 06:05 Corrected Calcium 9.1 mg/dL (8.5-10.1) 10/03/21 06:05 Magnesium 2.1 mg/dL (1.7-2.9) 10/03/21 06:05 Total Bilirubin 4.90 mg/dL (0.2-1.0) H 10/03/21 06:05 AST 55 Units/L (15-37) H 10/03/21 06:05 ALT 70 Units/L (12-78) 10/03/21 06:05 Alkaline Phosphatase 171 Units/L (46-116) H 10/03/21 06:05 Ammonia 38 umol/L (11-32) H 10/03/21 06:05 Creatine Kinase 250 Units/L (26-192) H 10/01/21 22:40 CK-MB (CK-2) 1.6 ng/mL (0-4.0) 10/01/21 22:40 CK/CKMB % Calc 0.6 % (<4) 10/01/21 22:40 Troponin I High Sens 17.6 ng/L (4.0-60.0) 10/01/21 22:40 Total Protein 5.3 g/dL (6.4-8.2) L 10/03/21 06:05 Albumin 3.0 g/dL (3.4-5.0) L 10/03/21 06:05 Globulin 2.3 g/dL (2.5-4.5) L 10/03/21 06:05 Albumin/Globulin Ratio 1.3 Ratio (1.1-2.1) 10/03/21 06:05 Amylase 88 Units/L (25-115) 09/30/21 12:30 Lipase 191 Units/L (73-393) 09/30/21 12:30 Specimen Type Catherized urine 09/30/21 13:15 Urine Color Yellow (YELLOW) 09/30/21 13:15 Urine Appearance Clear (CLEAR) 09/30/21 13:15 Urine pH 7.0 (5.0 - 8.0) 09/30/21 13:15 Ur Specific [place] 1.010 (1.000-1.030) 09/30/21 13:15 Urine Protein Negative (NEGATIVE) 09/30/21 13:15 Urine Glucose (UA) Negative (NEGATIVE) 09/30/21 13:15 Urine Ketones Negative (NEGATIVE) 09/30/21 13:15 Urine Occult Blood Negative (NEGATIVE) 09/30/21 13:15 Urine Nitrite Negative (NEGATIVE) 09/30/21 13:15 Urine Bilirubin Negative (NEGATIVE) 09/30/21 13:15 Urine Urobilinogen 1+ (NORMAL) 09/30/21 13:15 Ur Leukocyte Esterase Negative (NEGATIVE) 09/30/21 13:15 SARS CoV-2 RNA Rapid NATALYA Negative (NEGATIVE) 09/30/21 13:00 Plan (1) Cirrhosis of liver: Status: Acute (2) Encephalopathy, hepatic: Status: Resolved Plan: Po lactulose and check daily ammonia levels. (3) Anemia: Status: Acute Qualifiers: Anemia type: unspecified type Qualified Code(s): D64.9 - Anemia, unspecified Plan: Monitor Hb (4) DM2 (diabetes mellitus, type 2): Status: Acute Plan: Insulin sliding scale.
--- NOTE | 2021-10-23 13:29 | PCM.DCPLAN ---
DISCHARGE SUMMARY Admission Date Date of Admission: 09/30/21 Discharge Date Discharge Date: 10/03/21 Admission Diagnoses (1) Cirrhosis of liver: Status: Acute (2) Encephalopathy, hepatic: Status: Resolved (3) Anemia: Status: Acute (4) DM2 (diabetes mellitus, type 2): Status: Acute Discharge Diagnoses Discharge Diagnosis: 1. Hepatic Encephalopathy-resolved 2. Liver Cirrhosis 3. Chronic Liver Failure 4. Chronic anemia 5. DM2 Discharge Medications Discharge Medications: Home Medication List Humalog U-100 Insulin See Rx Instructions .ROUTE .COMPLEX 09/30/21 [History] Lantus U-100 Insulin 24 unit SUBCUT HS 09/30/21 [History] albuterol 90 mcg INHALATION Q6H PRN 09/30/21 [History] midodrine 15 mg PO Q8H 09/30/21 [History] omeprazole 20 mg PO DAILY 09/30/21 [History] zinc 50 mg PO DAILY 09/30/21 [History] furosemide 80 mg PO BID 10/01/21 [History] pramipexole 1 mg PO HS 10/01/21 [History] Prescriptions: Hospital Course Vital Signs: Temperature 98.9 F Pulse Rate [Left Brachial] 80 Pulse Rate 100 Respiratory Rate 22 Blood Pressure [Right Arm] 125/60 Blood Pressure 139/65 O2 Sat by Pulse Oximetry 97 Latest Lab Results: Laboratory Last Values WBC 2.7 X10^3/uL (3.6-10.0) L 10/03/21 06:05 RBC 2.12 X10^6/uL (3.5-5.4) L 10/03/21 06:05 Hgb 8.0 g/dL (12.0-16.0) L 10/03/21 06:05 Hct 22.6 % (36.0-47.0) L 10/03/21 06:05 MCV 106.8 fL (80.0-100.0) H 10/03/21 06:05 MCH 37.7 pg (27.0-34.0) H 10/03/21 06:05 MCHC 35.3 g/dL (33.0-35.0) H 10/03/21 06:05 RDW 26.1 % (11.6-16.5) H 10/03/21 06:05 Plt Count 86 X10^3/uL (150.0-450.0) L 10/03/21 06:05 Plt Count Comment Decreased (ADEQUATE) A 10/03/21 06:05 MPV 7.6 fL (7.4-11.0) 10/03/21 06:05 Neut % (Auto) 57.1 % (42.0-75.0) 10/03/21 06:05 Lymph % (Auto) 25.6 % (21.0-51.0) 10/03/21 06:05 [place] % (Auto) 12.2 % (0.0-13.0) 10/03/21 06:05 Eos % (Auto) 4.6 % (0.9-2.9) H 10/03/21 06:05 Baso % (Auto) 0.5 % (0.2-1.0) 10/03/21 06:05 Neut # (Auto) 1.6 x10^3/uL (2.2-4.8) L 10/03/21 06:05 Lymph # (Auto) 0.7 X10^3/uL (1.3-2.9) L 10/03/21 06:05 [place] # (Auto) 0.3 x10^3/uL (0.3-0.8) 10/03/21 06:05 Eos # (Auto) 0.1 x10^3/uL (0.0-0.2) 10/03/21 06:05 Baso # (Auto) 0.0 X10^3/uL (0.0-0.1) 10/03/21 06:05 Absolute Nucleated RBC 0.4 /100WBC 10/03/21 06:05 Plt Morphology Comment Normal (NORMAL) 10/03/21 06:05 RBC Morphology Abnormal (NORMAL) A 10/03/21 06:05 Poikilocytosis Slight A 10/03/21 06:05 Anisocytosis 2+ A 10/03/21 06:05 Macrocytosis 1+ A 10/03/21 06:05 Schistocytes Present 09/30/21 12:30 PT 17.3 SECONDS (11.8-14.3) 09/30/21 12:30 INR Target Range - 09/30/21 12:30 INR 1.49 (0.8-1.3) H 09/30/21 12:30 APTT 33.9 SECONDS (22.9-36.5) 09/30/21 12:30 PTT Comment - 09/30/21 12:30 Sample Site Rra 09/30/21 13:51 ABG pH 7.540 (7.35-7.45) H 09/30/21 13:51 ABG pCO2 33.0 mmHg (35.0-45.0) L 09/30/21 13:51 ABG pO2 103.0 mmHg (80.0-100.0) H 09/30/21 13:51 ABG HCO3 28.2 mmol/L (22-26) H 09/30/21 13:51 ABG O2 Saturation 99.0 % (90-100) 09/30/21 13:51 ABG Base Excess 5.8 mmol/L (-2.0-2.0) H 09/30/21 13:51 Juan Carlos Test Pos 09/30/21 13:51 A-a Gradient 5.0 mmHg 09/30/21 13:51 FiO2 21.0 09/30/21 13:51 Blood Gas Comments 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,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 09/30/21 13:51 Sodium 144 mmol/L (136-145) 10/03/21 06:05 Corrected Sodium 146 mmol/L (136-145) H 10/03/21 06:05 Potassium 3.9 mmol/L (3.5-5.1) 10/03/21 06:05 Chloride 111 mmol/L (98-107) H 10/03/21 06:05 Carbon Dioxide 23.5 mmol/L (21-32) 10/03/21 06:05 BUN 15 mg/dL (7-18) 10/03/21 06:05 Creatinine 0.80 mg/dL (0.55-1.02) 10/03/21 06:05 Est GFR (MDRD) Af Amer > 60 (>60) 10/03/21 06:05 Est GFR (MDRD) Non-Af > 60 (>60) 10/03/21 06:05 Glucose 164 mg/dL (65-99) H 10/03/21 06:05 POC Glucose (mg/dL) 148 mg/dL (65-99) H 10/03/21 05:29 Calcium 8.3 mg/dL (8.5-10.1) L 10/03/21 06:05 Corrected Calcium 9.1 mg/dL (8.5-10.1) 10/03/21 06:05 Magnesium 2.1 mg/dL (1.7-2.9) 10/03/21 06:05 Total Bilirubin 4.90 mg/dL (0.2-1.0) H 10/03/21 06:05 AST 55 Units/L (15-37) H 10/03/21 06:05 ALT 70 Units/L (12-78) 10/03/21 06:05 Alkaline Phosphatase 171 Units/L (46-116) H 10/03/21 06:05 Ammonia 38 umol/L (11-32) H 10/03/21 06:05 Creatine Kinase 250 Units/L (26-192) H 10/01/21 22:40 CK-MB (CK-2) 1.6 ng/mL (0-4.0) 10/01/21 22:40 CK/CKMB % Calc 0.6 % (<4) 10/01/21 22:40 Troponin I High Sens 17.6 ng/L (4.0-60.0) 10/01/21 22:40 Total Protein 5.3 g/dL (6.4-8.2) L 10/03/21 06:05 Albumin 3.0 g/dL (3.4-5.0) L 10/03/21 06:05 Globulin 2.3 g/dL (2.5-4.5) L 10/03/21 06:05 Albumin/Globulin Ratio 1.3 Ratio (1.1-2.1) 10/03/21 06:05 Amylase 88 Units/L (25-115) 09/30/21 12:30 Lipase 191 Units/L (73-393) 09/30/21 12:30 Specimen Type Catherized urine 09/30/21 13:15 Urine Color Yellow (YELLOW) 09/30/21 13:15 Urine Appearance Clear (CLEAR) 09/30/21 13:15 Urine pH 7.0 (5.0 - 8.0) 09/30/21 13:15 Ur Specific [place] 1.010 (1.000-1.030) 09/30/21 13:15 Urine Protein Negative (NEGATIVE) 09/30/21 13:15 Urine Glucose (UA) Negative (NEGATIVE) 09/30/21 13:15 Urine Ketones Negative (NEGATIVE) 09/30/21 13:15 Urine Occult Blood Negative (NEGATIVE) 09/30/21 13:15 Urine Nitrite Negative (NEGATIVE) 09/30/21 13:15 Urine Bilirubin Negative (NEGATIVE) 09/30/21 13:15 Urine Urobilinogen 1+ (NORMAL) 09/30/21 13:15 Ur Leukocyte Esterase Negative (NEGATIVE) 09/30/21 13:15 SARS CoV-2 RNA Rapid NATALYA Negative (NEGATIVE) 09/30/21 13:00 Hospital Course: The patient remained confused for the first 2 days of her hospital stay. However as her ammonia level dropped to 38 on the final day she was back to her normal mental status baseline. Hb has been stable. By the afternoon of her 4th day she was wanting to go home and insisted upon it. She was discharged home in stable condition. She will follow up with me for a hospital follow up in 1 week. Instructions Instructions: Type 2 Diabetes Mellitus, Diagnosis, Adult Anemia Hepatic Encephalopathy Chronic Obstructive Pulmonary Disease Exacerbation, [id number] Jaundice, Adult, [id number] Cirrhosis
== END 2021-10-03 11:50 | disposition home health service (06) | DRG 443 ==
LOC: ER 12:13 → MED/SURG 15:58
PROVIDERS: ADMIT Family Medicine; ATTEND Family Medicine
DX: Z20.822 Contact with and (suspected) exposure to COVID-19; K74.60 Unspecified cirrhosis of liver; K72.90 Hepatic failure, unspecified without coma; R94.31 Abnormal electrocardiogram [ECG] [EKG]; R26.89 Other abnormalities of gait and mobility; E11.65 Type 2 diabetes mellitus with hyperglycemia; R79.1 Abnormal coagulation profile

== ENCOUNTER 2021-10-07 16:06 | Inpatient (IN) ==
--- NOTE | 2021-10-07 16:46 | DR.AMS ---
HPI Time Seen Time Seen by Provider: 10/07/21 16:24 PCP Primary Care Physician: SUBHA KO Comment HPI Comment: A 65 y/o female brought in by her son for begining of changes in mentation. She has a known hx. Liver Cirrhosis and subsequent elevated ammonia levels. The son states that she is now taking her lactulose QID. She had been seeing the hepatology service at [facility] and at her last ED visit here, I spoke with one of her vice president of recruiting. They recommended local medical managent for her as she was eligible for the liver transplant program due to her physical condition and multiple co-morbid medical problems. He states that the family no w is interested in having her placed in Hospice services. Complaint Chief Complaint:: SON STATES PT. HAS AMS AND POSSIBLE DEHYDRATION. ONSET OF THIS MORNING. FAMILY REQUESTING HOSPICE SERVICES DUE TO PT'S LIVER DISEASE. COVID-19 Coronavirus risk:travel/contact w/high risk person: No Has patient experienced Coronavirus symptoms: No Reviewed Nurses Notes Reviewed: Yes Source History Provided: Family Member Mode of Arrival Mode of Arrival: Stretcher Timing Onset of Chief Complaint: 10/07/21 Quality Quality: Decreased Alertness Severity Severity: Moderate Context Recent: None Associated Signs and Symptoms Associated Signs and Symptoms: None PMH PMH Past Medical History: Yes Past Medical History: Liver Disease Past Surgical History: Yes Surgical History: Hysterectomy Family History History of Family Medical Conditions: No Social History Does patient currently use any type of tobacco product: No Have you used tobacco products in the last 12 months: No Type of Tobacco Use: None Does any household member use tobacco: No Alcohol Use: None Do you use any recreational Drugs:: No Lives With: Family Lives Where: Home Travel Risk Coronavirus risk:travel/contact w/high risk person: No Has patient experienced Coronavirus symptoms: No Infectious screening In the last 2 months have you had wt loss of >10#?: NO Have you had fever, night sweats or hemotysis?: No Have you traveled outside the country in the last 6 months?: No Isolation: Standard ROS Review of Systems Constitutional: No Symptoms Reported Eyes: No Symptoms Reported ENTM: No Symptoms Reported Respiratoy: No Symptoms Reported Cardiovascular: No Symptoms Reported Gastrointestinal/Abdominal: No Symptoms Reported Genitourinary: No Symptoms Reported Neurological: No Symptoms Reported Musculoskeletal: No Symptoms Reported Integumentary: No Symptoms Reported Hematologic/Lymphatic: No Symptoms Reported Endocrine: No Symptoms Reported Psychiatric: Other (confused) PE Vitals Vital Signs: Temp Pulse Resp BP BP Pulse Ox 10/07/21 18:15 53 L 93 L 10/07/21 18:00 54 L 141/67 91 L 10/07/21 17:45 53 L 94 L 10/07/21 17:30 132/58 10/07/21 17:15 51 L 94 L 10/07/21 17:00 52 L 143/65 93 L 10/07/21 16:45 55 L 96 10/07/21 16:31 52 L 128/59 97 10/07/21 16:30 52 L 98 10/07/21 16:20 58 L 100 10/07/21 16:18 98.2 F 59 L 17 162/70 100 10/03/21 07:46 125/60 General Limitations: Physical Limitation General Appearance: Alert and In No Apparent Distress Head Head Exam: Normal Inspection, Atraumatic and Normocephalic Eyes Eye exam: Normal Appearance, EOMI and Scleral Icterus (mild) ENT ENT Exam: Normal Exam, Normal Oropharynx, Normal External Ear Exam and Mucous Membranes Moist Neck Neck Exam: Normal Inspection, Full ROM and Trachea Midline Chest Chest Inspection: Normal Inspection and Symmetric Chest Wall Rise Respiratory Respiratory Exam: Normal Lung Sounds Bilat Cardiovascular Cardiovascular Exam: Regular Rate, Normal Rhythm, Bradycardia, +S1 and +S2 Abdominal Exam Abdominal Exam: Normal Inspection, Normal Bowel Sounds and Soft Extremities Extremities Exam: Normal Inspection and Full ROM Back Back Exam: Normal Inspection and Full ROM Neurological Neurological Exam: Alert and Oriented X3 Psychological Psychiatric Exam: Normal Affect and Normal Mood Skin Skin Exam: Intact COURSE Reevaluation 1st: Unchanged Education/Counseling Education/Counseling: Family, Education and Counseling Educated On: Treatment, Diagnosis, Prognosis and Needs for Follow Up ROR Labs Reviewed Result Diagrams: 10/07/21 16:43 10/07/21 16:43 Laboratory: Sodium 134 mmol/L (136-145) L 10/07/21 16:43 Corrected Sodium 138 mmol/L (136-145) 10/07/21 16:43 Potassium 4.6 mmol/L (3.5-5.1) 10/07/21 16:43 Chloride 96 mmol/L (98-107) L 10/07/21 16:43 Carbon Dioxide 30.4 mmol/L (21-32) 10/07/21 16:43 BUN 51 mg/dL (7-18) H 10/07/21 16:43 Creatinine 1.39 mg/dL (0.55-1.02) H 10/07/21 16:43 Est GFR (MDRD) Af Amer 49 (>60) L 10/07/21 16:43 Est GFR (MDRD) Non-Af 41 (>60) L 10/07/21 16:43 Glucose 286 mg/dL (65-99) H 10/07/21 16:43 Calcium 9.8 mg/dL (8.5-10.1) 10/07/21 16:43 Ammonia 160 umol/L (11-32) H 10/07/21 16:43 SARS CoV-2 RNA Rapid NATALYA Negative (NEGATIVE) 10/07/21 20:31 Opioid Opioid Risk Tool Age (Steven box if 16-45): No History of Preadolescent Sexual Abuse: No Total: 0 Total Score Risk Category: Low Risk Copyright: Antonio LARA predicting aberrant behaviors Diagnosis Discharge Problem: Acute hepatic encephalopathy
[2021-10-07 17:00] LABS: CALCIUM 9.8 mg/dL (8.5-10.1); CARBON DIOXIDE 30.4 mmol/L (21-32); CREATININE 1.39 mg/dL (0.55-1.02)
[2021-10-07] MEDS: PROAMATINE PO SCH (22:16)
[2021-10-07 22:35] VITALS: BMI 27.3
[2021-10-08] MEDS: PROAMATINE PO SCH ×3 (05:25→21:13)
[2021-10-08 06:48] LABS: CALCIUM 9.6 mg/dL (8.5-10.1); CARBON DIOXIDE 27.5 mmol/L (21-32); CREATININE 1.39 mg/dL (0.55-1.02)
[2021-10-08 07:01] LABS: BASOPHILS % (AUTO) 0.4 % (0.2-1.0); EOSINOPHILS # (AUTO) 0.2 x10^3/uL (0.0-0.2); EOSINOPHILS % (AUTO) 3.6 % (0.9-2.9); HEMATOCRIT 25.9 % (36.0-47.0); HEMOGLOBIN 9.5 g/dL (12.0-16.0); LYMPHOCYTES # (AUTO) 1.1 X10^3/uL (1.3-2.9); LYMPHOCYTES % (AUTO) 19.9 % (21.0-51.0); MEAN CORPUSCULAR HEMOGLOBIN 36.9 pg (27.0-34.0); MEAN CORPUSCULAR HGB CONC 36.6 g/dL (33.0-35.0); MEAN CORPUSCULAR VOLUME 100.9 fL (80.0-100.0); MONOCYTES # (AUTO) 0.6 x10^3/uL (0.3-0.8); MONOCYTES % (AUTO) 11.5 % (0.0-13.0); NEUTROPHILS # (AUTO) 3.6 x10^3/uL (2.2-4.8); NEUTROPHILS % (AUTO) 64.6 % (42.0-75.0); RED BLOOD COUNT 2.57 X10^6/uL (3.5-5.4); RED CELL DISTRIBUTION WIDTH 26.1 % (11.6-16.5); WHITE BLOOD COUNT 5.5 X10^3/uL (3.6-10.0)
[2021-10-08 07:45] LABS: ANISOCYTOSIS 3+; PLATELET MORPHOLOGY COMMENT NORMAL (NORMAL)
[2021-10-08 07:46] LABS: POIKILOCYTOSIS SLIGHT; SCHISTOCYTES RARE
[2021-10-08] MEDS ORDERED: SPIRONOLACTONE 100 MG PO SCH (09:00)
[2021-10-08] MEDS ORDERED: CHRONULAC PO SCH (09:00)
[2021-10-08] MEDS ORDERED: PATIENT'S HOME MEDICATION (Zinc 50 mg Tablet) PO SCH (09:00)
[2021-10-08] MEDS ORDERED: SPIRIVA HANDIHALER (30 DOSE) IN SCH (09:00)
[2021-10-08] MEDS ORDERED: PATIENT'S HOME MEDICATION (Lactulose 10 gram/15 mL solution) PR SCH (09:00)
[2021-10-08] MEDS: ALDACTONE TAB 25 MG PO SCH ×2 (09:29→21:00)
[2021-10-08] MEDS: XIFAXAN PO SCH ×2 (09:29→21:00)
[2021-10-08] MEDS: ZINC SULFATE PO SCH (09:29)
[2021-10-08] MEDS: PriLOSEC PO SCH (09:29)
[2021-10-08] MEDS: VITAMIN D3 25 mcg (1,000 UNITS) PO SCH (09:29)
[2021-10-08] MEDS: LOVENOX INJ 40 MG SYR SC SCH (09:39)
[2021-10-08] MEDS: NS 1,000 ML IV 1,000 ML IV SCH ×2 (10:43→23:09)
[2021-10-08] MEDS ORDERED: CHRONULAC NG SCH (11:05)
--- NOTE | 2021-10-08 13:29 | RAD ---
KUBHISTORY: NG TUBE PLACEMENTStudy: Single view of the abdomen.Comparison:NoneFindings:There is a NG tube terminating within the stomach.Bowel gas pattern is normal.IMPRESSION:1. NG tube terminating within the stomach.Electronically signed by: LEILA PIMENTEL (Oct 08, 2021 13:28:35)
--- NOTE | 2021-10-08 17:09 | DR.H&P ---
H&P History & Physical for Day of: H&P Date: 10/07/21 Chief Complaint Chief Complaint: AMS Allergies Allergies Allergy/AdvReac Type Severity Reaction Status Date / Time aspirin Allergy Verified 07/28/21 12:48 codeine Allergy Verified 07/28/21 12:48 iodine Allergy Verified 07/28/21 12:48 latex Allergy Verified 07/28/21 12:48 mushroom Allergy Verified 07/28/21 13:28 NSAIDS (Non-Steroidal Allergy Verified 07/28/21 12:48 Anti-Inflamma Penicillins Allergy Verified 07/28/21 12:48 rice Allergy Verified 07/28/21 13:28 Sulfa (Sulfonamide Allergy Verified 07/28/21 12:48 Antibiotics) [SULFA] History of Present Illness History of Present Illness: This is a 65 yo wf with advanced chronic liver failure who is on a liver transplant list at [place] in [place]. She was brought to [facility] for increasing confusion and AMS. She has a hx of hepatic encephalopathy and was treated here last week for this. Patients brother at this time wishes for hospice care at this time. Past Medical History Past Medical History: Liver Disease Past Surgical History Surgical History: Hysterectomy Social History Does patient currently use any type of tobacco product: No Have you used tobacco products in the last 12 months: No Type of Tobacco Use: None Does any household member use tobacco: No Alcohol Use: None Medications Home Medications: aspirin Allergy (Verified 07/28/21 12:48) codeine Allergy (Verified 07/28/21 12:48) iodine Allergy (Verified 07/28/21 12:48) latex Allergy (Verified 07/28/21 12:48) mushroom Allergy (Verified 07/28/21 13:28) NSAIDS (Non-Steroidal Anti-Inflamma Allergy (Verified 07/28/21 12:48) Penicillins Allergy (Verified 07/28/21 12:48) rice Allergy (Verified 07/28/21 13:28) Sulfa (Sulfonamide Antibiotics) [SULFA] Allergy (Verified 07/28/21 12:48) CONTINUE taking the following medications albuterol sulfate [ProAir HFA] 2 puff INHALATION Q4H PRN 10/08/21 [History] Labs Result Diagrams: 10/08/21 06:15 10/08/21 06:15 Labs: Laboratory WBC 5.5 X10^3/uL (3.6-10.0) 10/08/21 06:15 RBC 2.57 X10^6/uL (3.5-5.4) L 10/08/21 06:15 Hgb 9.5 g/dL (12.0-16.0) L 10/08/21 06:15 Hct 25.9 % (36.0-47.0) L 10/08/21 06:15 MCV 100.9 fL (80.0-100.0) H 10/08/21 06:15 MCH 36.9 pg (27.0-34.0) H 10/08/21 06:15 MCHC 36.6 g/dL (33.0-35.0) H 10/08/21 06:15 RDW 26.1 % (11.6-16.5) H 10/08/21 06:15 Plt Count 126 X10^3/uL (150.0-450.0) L 10/08/21 06:15 Plt Count Comment Decreased (ADEQUATE) A 10/08/21 06:15 MPV 8.0 fL (7.4-11.0) 10/08/21 06:15 Neut % (Auto) 64.6 % (42.0-75.0) 10/08/21 06:15 Lymph % (Auto) 19.9 % (21.0-51.0) L 10/08/21 06:15 [place] % (Auto) 11.5 % (0.0-13.0) 10/08/21 06:15 Eos % (Auto) 3.6 % (0.9-2.9) H 10/08/21 06:15 Baso % (Auto) 0.4 % (0.2-1.0) 10/08/21 06:15 Neut # (Auto) 3.6 x10^3/uL (2.2-4.8) 10/08/21 06:15 Lymph # (Auto) 1.1 X10^3/uL (1.3-2.9) L 10/08/21 06:15 [place] # (Auto) 0.6 x10^3/uL (0.3-0.8) 10/08/21 06:15 Eos # (Auto) 0.2 x10^3/uL (0.0-0.2) 10/08/21 06:15 Baso # (Auto) 0.0 X10^3/uL (0.0-0.1) 10/08/21 06:15 Absolute Nucleated RBC 0.2 /100WBC 10/08/21 06:15 Total Counted Cancelled 10/08/21 06:15 Neutrophils % (Manual) Cancelled 10/08/21 06:15 Band Neutrophils % Cancelled 10/08/21 06:15 Lymphocytes % (Manual) Cancelled 10/08/21 06:15 Monocytes % (Manual) Cancelled 10/08/21 06:15 Eosinophils % (Manual) Cancelled 10/08/21 06:15 Basophils % (Manual) Cancelled 10/08/21 06:15 Metamyelocytes % Cancelled 10/08/21 06:15 Myelocytes % Cancelled 10/08/21 06:15 Promyelocytes % Cancelled 10/08/21 06:15 Plt Morphology Comment Normal (NORMAL) 10/08/21 06:15 RBC Morphology Abnormal (NORMAL) A 10/08/21 06:15 Poikilocytosis Slight A 10/08/21 06:15 Anisocytosis 3+ A 10/08/21 06:15 Macrocytosis 1+ A 10/08/21 06:15 Schistocytes Rare 10/08/21 06:15 Sodium 135 mmol/L (136-145) L 10/08/21 06:15 Corrected Sodium 138 mmol/L (136-145) 10/08/21 06:15 Potassium 4.7 mmol/L (3.5-5.1) 10/08/21 06:15 Chloride 97 mmol/L (98-107) L 10/08/21 06:15 Carbon Dioxide 27.5 mmol/L (21-32) 10/08/21 06:15 BUN 51 mg/dL (7-18) H 10/08/21 06:15 Creatinine 1.39 mg/dL (0.55-1.02) H 10/08/21 06:15 Est GFR (MDRD) Af Amer 49 (>60) L 10/08/21 06:15 Est GFR (MDRD) Non-Af 41 (>60) L 10/08/21 06:15 Glucose 206 mg/dL (65-99) H 10/08/21 06:15 POC Glucose (mg/dL) 269 mg/dL (65-99) H 10/08/21 16:32 Calcium 9.6 mg/dL (8.5-10.1) 10/08/21 06:15 Ammonia 158 umol/L (11-32) H 10/08/21 06:15 SARS CoV-2 RNA Rapid NATALYA Negative (NEGATIVE) 10/07/21 20:31 Review of Systems Constitutional: No Symptoms Reported Physical Exam Vital Signs: Temperature 97.9 F Pulse Rate [Bilateral Radial] 99 Pulse Rate 53 Respiratory Rate 20 Blood Pressure [Right Arm] 144/63 Blood Pressure 141/67 O2 Sat by Pulse Oximetry 99 Oriented: Not Oriented Eyes: Other (icteric) Ear: Normal Nose: Normal Throat: Normal Respiratory: Clear Throughout Cardiovascular: Normal : Normal Auscultation: Bowel Sounds: Normal Palpation: Normal Tenderness: Normal Skin: Other (icteric) Musculoskeletal: Instability Speech Pattern: Aphasic Assessment/Plan (1) Cirrhosis of liver: Status: Acute (2) Encephalopathy, hepatic: Status: Acute Plan: Lactulose. Hospice services per family. (3) Hyponatremia: Status: Acute Review H&P Reviewed: Yes Patient was examined?: Yes
--- NOTE | 2021-10-08 17:13 | PCM.PROG ---
Progress Note Progress Note for Day of Date of Exam: 10/08/21 Subjective Subjective: Patient is still with AMS from hepatic encephalopathy this am. Ammonia level is 158 this am. Daughter is very agitated that patient was to be placed on hospice. Hb 9.5 Plt 126 Cr 1.39 Patient is currently on Lactulose bid. Will increase to QID. Discuss hospice care with daughter later today. Past Medical Family Social History Past Med/Fam/Surg Hx: No changes since H&P Allergies: Allergies aspirin Allergy (Verified 07/28/21 12:48) codeine Allergy (Verified 07/28/21 12:48) iodine Allergy (Verified 07/28/21 12:48) latex Allergy (Verified 07/28/21 12:48) mushroom Allergy (Verified 07/28/21 13:28) NSAIDS (Non-Steroidal Anti-Inflamma Allergy (Verified 07/28/21 12:48) Penicillins Allergy (Verified 07/28/21 12:48) rice Allergy (Verified 07/28/21 13:28) Sulfa (Sulfonamide Antibiotics) [SULFA] Allergy (Verified 07/28/21 12:48) Review of Systems ROS: No change since H&P ROS changes noted: Unable to obtain ROS as patient is not alert at this time. Vital Signs and I&O's Vital Signs: Temperature 97.9 F Pulse Rate [Bilateral Radial] 99 Pulse Rate 53 Respiratory Rate 20 Blood Pressure [Right Arm] 144/63 Blood Pressure 141/67 O2 Sat by Pulse Oximetry 99 Intake and Output: Intake & Output 10/06/21 10/07/21 10/08/21 10/09/21 11:59 11:59 11:59 11:59 Intake Total 0 / 0 Balance 0 / 0 Physical Exam Oriented: Not Oriented Eyes: Other (icteric) Ear: Normal Nose: Normal Throat: Normal Cardiovascular: Normal : Normal Auscultation: Bowel Sounds: Normal Tenderness: Normal Skin: Other (icteric) Musculoskeletal: Instability Speech Pattern: Aphasic Laboratory and Diagnostics Result Diagrams: 10/08/21 06:15 10/08/21 06:15 Labs: Laboratory WBC 5.5 X10^3/uL (3.6-10.0) 10/08/21 06:15 RBC 2.57 X10^6/uL (3.5-5.4) L 10/08/21 06:15 Hgb 9.5 g/dL (12.0-16.0) L 10/08/21 06:15 Hct 25.9 % (36.0-47.0) L 10/08/21 06:15 MCV 100.9 fL (80.0-100.0) H 10/08/21 06:15 MCH 36.9 pg (27.0-34.0) H 10/08/21 06:15 MCHC 36.6 g/dL (33.0-35.0) H 10/08/21 06:15 RDW 26.1 % (11.6-16.5) H 10/08/21 06:15 Plt Count 126 X10^3/uL (150.0-450.0) L 10/08/21 06:15 Plt Count Comment Decreased (ADEQUATE) A 10/08/21 06:15 MPV 8.0 fL (7.4-11.0) 10/08/21 06:15 Neut % (Auto) 64.6 % (42.0-75.0) 10/08/21 06:15 Lymph % (Auto) 19.9 % (21.0-51.0) L 10/08/21 06:15 [place] % (Auto) 11.5 % (0.0-13.0) 10/08/21 06:15 Eos % (Auto) 3.6 % (0.9-2.9) H 10/08/21 06:15 Baso % (Auto) 0.4 % (0.2-1.0) 10/08/21 06:15 Neut # (Auto) 3.6 x10^3/uL (2.2-4.8) 10/08/21 06:15 Lymph # (Auto) 1.1 X10^3/uL (1.3-2.9) L 10/08/21 06:15 [place] # (Auto) 0.6 x10^3/uL (0.3-0.8) 10/08/21 06:15 Eos # (Auto) 0.2 x10^3/uL (0.0-0.2) 10/08/21 06:15 Baso # (Auto) 0.0 X10^3/uL (0.0-0.1) 10/08/21 06:15 Absolute Nucleated RBC 0.2 /100WBC 10/08/21 06:15 Total Counted Cancelled 10/08/21 06:15 Neutrophils % (Manual) Cancelled 10/08/21 06:15 Band Neutrophils % Cancelled 10/08/21 06:15 Lymphocytes % (Manual) Cancelled 10/08/21 06:15 Monocytes % (Manual) Cancelled 10/08/21 06:15 Eosinophils % (Manual) Cancelled 10/08/21 06:15 Basophils % (Manual) Cancelled 10/08/21 06:15 Metamyelocytes % Cancelled 10/08/21 06:15 Myelocytes % Cancelled 10/08/21 06:15 Promyelocytes % Cancelled 10/08/21 06:15 Plt Morphology Comment Normal (NORMAL) 10/08/21 06:15 RBC Morphology Abnormal (NORMAL) A 10/08/21 06:15 Poikilocytosis Slight A 10/08/21 06:15 Anisocytosis 3+ A 10/08/21 06:15 Macrocytosis 1+ A 10/08/21 06:15 Schistocytes Rare 10/08/21 06:15 Sodium 135 mmol/L (136-145) L 10/08/21 06:15 Corrected Sodium 138 mmol/L (136-145) 10/08/21 06:15 Potassium 4.7 mmol/L (3.5-5.1) 10/08/21 06:15 Chloride 97 mmol/L (98-107) L 10/08/21 06:15 Carbon Dioxide 27.5 mmol/L (21-32) 10/08/21 06:15 BUN 51 mg/dL (7-18) H 10/08/21 06:15 Creatinine 1.39 mg/dL (0.55-1.02) H 10/08/21 06:15 Est GFR (MDRD) Af Amer 49 (>60) L 10/08/21 06:15 Est GFR (MDRD) Non-Af 41 (>60) L 10/08/21 06:15 Glucose 206 mg/dL (65-99) H 10/08/21 06:15 POC Glucose (mg/dL) 269 mg/dL (65-99) H 10/08/21 16:32 Calcium 9.6 mg/dL (8.5-10.1) 10/08/21 06:15 Ammonia 158 umol/L (11-32) H 10/08/21 06:15 SARS CoV-2 RNA Rapid NATALYA Negative (NEGATIVE) 10/07/21 20:31 Plan (1) Cirrhosis of liver: Status: Acute (2) Encephalopathy, hepatic: Status: Acute Plan: Lactulose. Hospice services per family. (3) Hyponatremia: Status: Acute
[2021-10-08] MEDS: NovoLIN R (or HumuLIN R) SC PRN (17:35)
[2021-10-08 19:15] LABS: BILIRUBIN,URINE NEGATIVE (NEGATIVE); BLOOD/HEMOGLOBIN,URINE 4+ (NEGATIVE); GLUCOSE, URINE NEGATIVE (NEGATIVE); KETONES,URINE 1+ (NEGATIVE); LEUKOCYTE ESTERASE ,URINE 3+ (NEGATIVE); NITRITES,URINE NEGATIVE (NEGATIVE); PROTEIN,URINE 2+ (NEGATIVE); UROBILINOGEN,URINE NORMAL (NORMAL)
[2021-10-08 19:23] LABS: APPEARANCE,URINE HAZY (CLEAR); COLOR,URINE YELLOW (YELLOW)
[2021-10-08 19:24] LABS: BACTERIA,URINE 3+ /HPF (NEGATIVE); RBC,URINE 0-2 /HPF (0-3); SQUAMOUS EPITHELIAL CELL,UR FEW /HPF (NEGATIVE)
[2021-10-08] MEDS: CHRONULAC NG SCH (21:00)
[2021-10-08] MEDS: MIRAPEX TAB 1 MG PO SCH (21:01)
[2021-10-09] MEDS: PROAMATINE PO SCH ×3 (05:49→21:40)
[2021-10-09] MEDS: NovoLIN R (or HumuLIN R) SC PRN ×4 (05:49→21:53)
[2021-10-09 06:30] LABS: BASOPHILS % (AUTO) 0.7 % (0.2-1.0); EOSINOPHILS # (AUTO) 0.1 x10^3/uL (0.0-0.2); EOSINOPHILS % (AUTO) 2.5 % (0.9-2.9); HEMATOCRIT 23.9 % (36.0-47.0); HEMOGLOBIN 8.7 g/dL (12.0-16.0); LYMPHOCYTES # (AUTO) 1.1 X10^3/uL (1.3-2.9); LYMPHOCYTES % (AUTO) 27.6 % (21.0-51.0); MEAN CORPUSCULAR HEMOGLOBIN 37.7 pg (27.0-34.0); MEAN CORPUSCULAR HGB CONC 36.4 g/dL (33.0-35.0); MEAN CORPUSCULAR VOLUME 103.4 fL (80.0-100.0); MEAN PLATELET VOLUME 7.9 fL (7.4-11.0); MONOCYTES # (AUTO) 0.6 x10^3/uL (0.3-0.8); MONOCYTES % (AUTO) 14.1 % (0.0-13.0); NEUTROPHILS # (AUTO) 2.3 x10^3/uL (2.2-4.8); NEUTROPHILS % (AUTO) 55.1 % (42.0-75.0); RED BLOOD COUNT 2.31 X10^6/uL (3.5-5.4); RED CELL DISTRIBUTION WIDTH 26.2 % (11.6-16.5); WHITE BLOOD COUNT 4.1 X10^3/uL (3.6-10.0)
[2021-10-09 06:49] LABS: ALBUMIN 3.1 g/dL (3.4-5.0); CALCIUM 9.1 mg/dL (8.5-10.1); CARBON DIOXIDE 25.3 mmol/L (21-32); COR CA(FOR HYPOALB) 9.8 mg/dL (8.5-10.1); CREATININE 1.42 mg/dL (0.55-1.02); TOTAL PROTEIN 5.8 g/dL (6.4-8.2)
[2021-10-09 07:18] LABS: ANISOCYTOSIS 3+; PLATELET MORPHOLOGY COMMENT NORMAL (NORMAL)
[2021-10-09 07:19] LABS: POIKILOCYTOSIS SLIGHT
[2021-10-09] MEDS ORDERED: NovoLIN R (or HumuLIN R) SC PRN (09:05)
--- NOTE | 2021-10-09 09:05 | PCM.PROG ---
Progress Note Progress Note for Day of Date of Exam: 10/09/21 Subjective Subjective: Patient is still with AMS from hepatic encephalopathy this am. She is moving around in bed more than yesterday morning. I spoke with her son Seven, this am. He signed a DNR yesterday but does want her treated at this time. Ammonia level is 58 this am. Hb 8.7 Plt 119 Cr 1.42 Glu 245 Patient is currently on Lactulose bid. Will increase to QID. U/A shows Lg WBC's in urine, will start IV Rocephin for UTI Past Medical Family Social History Past Med/Fam/Surg Hx: No changes since H&P Allergies: Allergies aspirin Allergy (Verified 07/28/21 12:48) codeine Allergy (Verified 07/28/21 12:48) iodine Allergy (Verified 07/28/21 12:48) latex Allergy (Verified 07/28/21 12:48) mushroom Allergy (Verified 07/28/21 13:28) NSAIDS (Non-Steroidal Anti-Inflamma Allergy (Verified 07/28/21 12:48) Penicillins Allergy (Verified 07/28/21 12:48) rice Allergy (Verified 07/28/21 13:28) Sulfa (Sulfonamide Antibiotics) [SULFA] Allergy (Verified 07/28/21 12:48) Review of Systems ROS: No change since H&P Vital Signs and I&O's Vital Signs: Temperature 98.4 F Pulse Rate [Bilateral Radial] 88 Pulse Rate 53 Respiratory Rate 18 Blood Pressure [Right Arm] 159/67 Blood Pressure 141/67 O2 Sat by Pulse Oximetry 98 Intake and Output: Intake & Output 10/06/21 10/07/21 10/08/21 10/09/21 11:59 11:59 11:59 11:59 Intake Total 1725 / 1725 Output Total 1020 / 1020 Balance 705 / 705 Physical Exam Oriented: Not Oriented Eyes: Other (icteric) Ear: Normal Nose: Normal Throat: Normal Cardiovascular: Normal : Normal Auscultation: Bowel Sounds: Normal Tenderness: Normal Skin: Other (icteric) Musculoskeletal: Instability Speech Pattern: Aphasic Laboratory and Diagnostics Result Diagrams: 10/09/21 05:45 10/09/21 05:45 Labs: Laboratory WBC 4.1 X10^3/uL (3.6-10.0) 10/09/21 05:45 RBC 2.31 X10^6/uL (3.5-5.4) L 10/09/21 05:45 Hgb 8.7 g/dL (12.0-16.0) L 10/09/21 05:45 Hct 23.9 % (36.0-47.0) L 10/09/21 05:45 MCV 103.4 fL (80.0-100.0) H 10/09/21 05:45 MCH 37.7 pg (27.0-34.0) H 10/09/21 05:45 MCHC 36.4 g/dL (33.0-35.0) H 10/09/21 05:45 RDW 26.2 % (11.6-16.5) H 10/09/21 05:45 Plt Count 119 X10^3/uL (150.0-450.0) L 10/09/21 05:45 Plt Count Comment Decreased (ADEQUATE) A 10/09/21 05:45 MPV 7.9 fL (7.4-11.0) 10/09/21 05:45 Neut % (Auto) 55.1 % (42.0-75.0) 10/09/21 05:45 Lymph % (Auto) 27.6 % (21.0-51.0) 10/09/21 05:45 Love % (Auto) 14.1 % (0.0-13.0) H 10/09/21 05:45 Eos % (Auto) 2.5 % (0.9-2.9) 10/09/21 05:45 Baso % (Auto) 0.7 % (0.2-1.0) 10/09/21 05:45 Neut # (Auto) 2.3 x10^3/uL (2.2-4.8) 10/09/21 05:45 Lymph # (Auto) 1.1 X10^3/uL (1.3-2.9) L 10/09/21 05:45 Love # (Auto) 0.6 x10^3/uL (0.3-0.8) 10/09/21 05:45 Eos # (Auto) 0.1 x10^3/uL (0.0-0.2) 10/09/21 05:45 Baso # (Auto) 0.0 X10^3/uL (0.0-0.1) 10/09/21 05:45 Absolute Nucleated RBC 0.0 /100WBC 10/09/21 05:45 Total Counted Cancelled 10/08/21 06:15 Neutrophils % (Manual) Cancelled 10/08/21 06:15 Band Neutrophils % Cancelled 10/08/21 06:15 Lymphocytes % (Manual) Cancelled 10/08/21 06:15 Monocytes % (Manual) Cancelled 10/08/21 06:15 Eosinophils % (Manual) Cancelled 10/08/21 06:15 Basophils % (Manual) Cancelled 10/08/21 06:15 Metamyelocytes % Cancelled 10/08/21 06:15 Myelocytes % Cancelled 10/08/21 06:15 Promyelocytes % Cancelled 10/08/21 06:15 Plt Morphology Comment Normal (NORMAL) 10/09/21 05:45 RBC Morphology Abnormal (NORMAL) A 10/09/21 05:45 Poikilocytosis Slight A 10/09/21 05:45 Anisocytosis 3+ A 10/09/21 05:45 Macrocytosis Slight A 10/09/21 05:45 Schistocytes Rare 10/08/21 06:15 Sodium 142 mmol/L (136-145) 10/09/21 05:45 Corrected Sodium 145 mmol/L (136-145) 10/09/21 05:45 Potassium 4.0 mmol/L (3.5-5.1) 10/09/21 05:45 Chloride 105 mmol/L (98-107) 10/09/21 05:45 Carbon Dioxide 25.3 mmol/L (21-32) 10/09/21 05:45 BUN 57 mg/dL (7-18) H 10/09/21 05:45 Creatinine 1.42 mg/dL (0.55-1.02) H 10/09/21 05:45 Est GFR (MDRD) Af Amer 48 (>60) L 10/09/21 05:45 Est GFR (MDRD) Non-Af 40 (>60) L 10/09/21 05:45 Glucose 245 mg/dL (65-99) H 10/09/21 05:45 POC Glucose (mg/dL) 229 mg/dL (65-99) H 10/09/21 05:47 Calcium 9.1 mg/dL (8.5-10.1) 10/09/21 05:45 Corrected Calcium 9.8 mg/dL (8.5-10.1) 10/09/21 05:45 Total Bilirubin 6.50 mg/dL (0.2-1.0) H 10/09/21 05:45 AST 50 Units/L (15-37) H 10/09/21 05:45 ALT 53 Units/L (12-78) 10/09/21 05:45 Alkaline Phosphatase 181 Units/L (46-116) H 10/09/21 05:45 Ammonia 59 umol/L (11-32) H 10/09/21 05:45 Total Protein 5.8 g/dL (6.4-8.2) L 10/09/21 05:45 Albumin 3.1 g/dL (3.4-5.0) L 10/09/21 05:45 Globulin 2.7 g/dL (2.5-4.5) 10/09/21 05:45 Albumin/Globulin Ratio 1.1 Ratio (1.1-2.1) 10/09/21 05:45 Specimen Type Catherized urine 10/08/21 18:30 Urine Color Yellow (YELLOW) 10/08/21 18:30 Urine Appearance Hazy (CLEAR) 10/08/21 18:30 Urine pH 6.0 (5.0 - 8.0) 10/08/21 18:30 Ur Specific [place] 1.015 (1.000-1.030) 10/08/21 18:30 Urine Protein 2+ (NEGATIVE) 10/08/21 18:30 Urine Glucose (UA) Negative (NEGATIVE) 10/08/21 18:30 Urine Ketones 1+ (NEGATIVE) 10/08/21 18:30 Urine Occult Blood 4+ (NEGATIVE) 10/08/21 18:30 Urine Nitrite Negative (NEGATIVE) 10/08/21 18:30 Urine Bilirubin Negative (NEGATIVE) 10/08/21 18:30 Urine Urobilinogen Normal (NORMAL) 10/08/21 18:30 Ur Leukocyte Esterase 3+ (NEGATIVE) 10/08/21 18:30 Urine RBC 0-2 /HPF (0-3) 10/08/21 18:30 Urine WBC Tntc /HPF (0-5) A 10/08/21 18:30 Ur Squamous Epith Cells Few /HPF (NEGATIVE) 10/08/21 18:30 Urine Bacteria 3+ /HPF (NEGATIVE) 10/08/21 18:30 Ur Culture Indicated? Yes/culture set up 10/08/21 18:30 SARS CoV-2 RNA Rapid NATALYA Negative (NEGATIVE) 10/07/21 20:31 Plan (1) Cirrhosis of liver: Status: Acute (2) Encephalopathy, hepatic: Status: Acute Plan: Lactulose. Hospice services per family. (3) Hyponatremia: Status: Resolved (4) UTI (urinary tract infection): Status: Acute Plan: IV Rocephin (5) Hyperglycemia: Status: Acute Plan: Check A1C and start Regular insulin sliding scale.
[2021-10-09] MEDS: LOVENOX INJ 40 MG SYR SC SCH (09:37)
[2021-10-09] MEDS: ROCEPHIN 1 GRAM IV PREMIX 1 G/50 ML IV.SOLN. IV SCH ×2 (09:40→11:52)
[2021-10-09] MEDS: XIFAXAN PO SCH ×2 (09:44→21:36)
[2021-10-09] MEDS: ALDACTONE TAB 25 MG PO SCH ×2 (09:44→21:37)
[2021-10-09] MEDS: PriLOSEC PO SCH (09:44)
[2021-10-09] MEDS: ZINC SULFATE PO SCH (09:45)
[2021-10-09] MEDS: VITAMIN D3 25 mcg (1,000 UNITS) PO SCH (11:52)
[2021-10-09] MEDS: CHRONULAC NG SCH ×4 (11:52→21:36)
[2021-10-09] MEDS: NS 1,000 ML IV 1,000 ML IV SCH ×4 (11:55→21:35)
[2021-10-09] MEDS ORDERED: ULTRAM PO PRN (17:46)
[2021-10-09] MEDS: MIRAPEX TAB 1 MG PO SCH (21:37)
[2021-10-10] MEDS: NS 1,000 ML IV 1,000 ML IV SCH (05:09)
[2021-10-10] MEDS: PROAMATINE PO SCH ×2 (05:11→14:00)
[2021-10-10 06:08] LABS: AMMONIA 32 umol/L (11-32)
[2021-10-10 06:31] LABS: BASOPHILS % (AUTO) 0.6 % (0.2-1.0); EOSINOPHILS # (AUTO) 0.2 x10^3/uL (0.0-0.2); EOSINOPHILS % (AUTO) 5.7 % (0.9-2.9); HEMATOCRIT 22.6 % (36.0-47.0); HEMOGLOBIN 8.2 g/dL (12.0-16.0); LYMPHOCYTES # (AUTO) 1.1 X10^3/uL (1.3-2.9); LYMPHOCYTES % (AUTO) 32.7 % (21.0-51.0); MEAN CORPUSCULAR HEMOGLOBIN 37.6 pg (27.0-34.0); MEAN CORPUSCULAR VOLUME 104.3 fL (80.0-100.0); MEAN PLATELET VOLUME 7.9 fL (7.4-11.0); MONOCYTES # (AUTO) 0.3 x10^3/uL (0.3-0.8); MONOCYTES % (AUTO) 9.5 % (0.0-13.0); NEUTROPHILS # (AUTO) 1.8 x10^3/uL (2.2-4.8); NEUTROPHILS % (AUTO) 51.5 % (42.0-75.0); RED BLOOD COUNT 2.17 X10^6/uL (3.5-5.4); RED CELL DISTRIBUTION WIDTH 26.6 % (11.6-16.5); WHITE BLOOD COUNT 3.5 X10^3/uL (3.6-10.0)
[2021-10-10 06:53] LABS: ALANINE AMINOTRANSFERASE 54 Units/L (12-78); ALBUMIN 3.2 g/dL (3.4-5.0); ALKALINE PHOSPHATASE 165 Units/L (46-116); ASPARTATE AMINO TRANSFERASE 51 Units/L (15-37); BLOOD UREA NITROGEN 35 mg/dL (7-18); CALCIUM 8.4 mg/dL (8.5-10.1); CARBON DIOXIDE 24.9 mmol/L (21-32); CHLORIDE 108 mmol/L (98-107); COR NA(FOR HYPERGLY) 144 mmol/L (136-145); CREATININE 0.83 mg/dL (0.55-1.02); SODIUM 143 mmol/L (136-145); TOTAL PROTEIN 5.7 g/dL (6.4-8.2); eGFR NON BLACK RACES > 60 (>60)
[2021-10-10 07:02] LABS: ANISOCYTOSIS 3+; PLATELET MORPHOLOGY COMMENT NORMAL (NORMAL); POIKILOCYTOSIS SLIGHT
[2021-10-10] MEDS: ALDACTONE TAB 25 MG PO SCH (08:52)
[2021-10-10] MEDS: PriLOSEC PO SCH (08:53)
[2021-10-10] MEDS: XIFAXAN PO SCH (08:53)
[2021-10-10] MEDS: VITAMIN D3 25 mcg (1,000 UNITS) PO SCH (08:53)
[2021-10-10] MEDS: CHRONULAC NG SCH ×3 (08:53→17:09)
[2021-10-10] MEDS: LOVENOX INJ 40 MG SYR SC SCH (08:53)
[2021-10-10] MEDS: ROCEPHIN 1 GRAM IV PREMIX 1 G/50 ML IV.SOLN. IV SCH (08:53)
[2021-10-10] MEDS: ZINC SULFATE PO SCH (08:54)
[2021-10-10] MEDS ORDERED: K-DUR TAB 20 MEQ PO PRN ×2 (09:20→09:53)
[2021-10-10] MEDS ORDERED: KLOR-CON PO PRN ×2 (09:20→09:53)
[2021-10-10] MEDS ORDERED: MICRO K EXTEN CAP 10 MEQ PO PRN ×2 (09:20→09:53)
[2021-10-10] MEDS ORDERED: POTASSIUM CHLORIDE LIQ 20 MEQ UDC PO PRN (09:53)
[2021-10-10] MEDS ORDERED: POTASSIUM CHL 40 MEQ/NS 0.45% 500 ML IV PRN (09:53)
[2021-10-10] MEDS ORDERED: POTASSIUM CHL 60 MEQ/NS 0.45% 500 ML IV PRN (09:53)
[2021-10-10] MEDS ORDERED: K-RIDER 10 MEQ/NS 100 ML 10 MEQ/100 ML BAG IV PRN (09:53)
[2021-10-10] MEDS ORDERED: CIPRO IV 400 MG PREMIX* 400 MG/200 ML IV.SOLN. IV SCH (11:00)
--- NOTE | 2021-10-10 11:20 | PCM.PROG ---
Progress Note Progress Note for Day of Date of Exam: 10/10/21 Subjective Subjective: Patient is alert this am and is communicating. She is feeling better. Will do a PT consult this am to get pt. up and ambulating. I spoke with patients daughter and she plans on taking care of patient at home but does want to consider possible hospice consultation for end of life care. Patient is currently on Lactulose qid. Urine culture grew out Citrobacter Freundii, sensitive to Cipro but resistant to Rochephin. Past Medical Family Social History Past Med/Fam/Surg Hx: No changes since H&P Allergies: Allergies aspirin Allergy (Verified 07/28/21 12:48) codeine Allergy (Verified 07/28/21 12:48) iodine Allergy (Verified 07/28/21 12:48) latex Allergy (Verified 07/28/21 12:48) mushroom Allergy (Verified 07/28/21 13:28) NSAIDS (Non-Steroidal Anti-Inflamma Allergy (Verified 07/28/21 12:48) Penicillins Allergy (Verified 07/28/21 12:48) rice Allergy (Verified 07/28/21 13:28) Sulfa (Sulfonamide Antibiotics) [SULFA] Allergy (Verified 07/28/21 12:48) Review of Systems ROS: No change since H&P Vital Signs and I&O's Vital Signs: Temperature 97.8 F Pulse Rate [Bilateral Radial] 67 Pulse Rate 53 Respiratory Rate 20 Blood Pressure [Right Arm] 150/69 Blood Pressure 141/67 O2 Sat by Pulse Oximetry 99 Intake and Output: Intake & Output 10/07/21 10/08/21 10/09/21 10/10/21 11:59 11:59 11:59 11:59 Intake Total 1725 / 1725 2129 / 2129 Output Total 1020 / 1020 1590 / 1590 Balance 705 / 705 539 / 539 Physical Exam Oriented: Not Oriented Eyes: Other (icteric) Ear: Normal Nose: Normal Throat: Normal Cardiovascular: Normal : Normal Auscultation: Bowel Sounds: Normal Tenderness: Normal Skin: Other (icteric) Musculoskeletal: Instability Speech Pattern: Clear and Appropriate Laboratory and Diagnostics Result Diagrams: 10/10/21 05:26 10/10/21 05:26 Labs: 10/08/21 18:30 Urine,Catheterized Urine Culture - Final Citrobacter Freundii Laboratory WBC 3.5 X10^3/uL (3.6-10.0) L 10/10/21 05:26 RBC 2.17 X10^6/uL (3.5-5.4) L 10/10/21 05:26 Hgb 8.2 g/dL (12.0-16.0) L 10/10/21 05:26 Hct 22.6 % (36.0-47.0) L 10/10/21 05:26 MCV 104.3 fL (80.0-100.0) H 10/10/21 05:26 MCH 37.6 pg (27.0-34.0) H 10/10/21 05:26 MCHC 36.0 g/dL (33.0-35.0) H 10/10/21 05:26 RDW 26.6 % (11.6-16.5) H 10/10/21 05:26 Plt Count 114 X10^3/uL (150.0-450.0) L 10/10/21 05:26 Plt Count Comment Decreased (ADEQUATE) A 10/10/21 05:26 MPV 7.9 fL (7.4-11.0) 10/10/21 05:26 Neut % (Auto) 51.5 % (42.0-75.0) 10/10/21 05:26 Lymph % (Auto) 32.7 % (21.0-51.0) 10/10/21 05:26 [place] % (Auto) 9.5 % (0.0-13.0) 10/10/21 05:26 Eos % (Auto) 5.7 % (0.9-2.9) H 10/10/21 05:26 Baso % (Auto) 0.6 % (0.2-1.0) 10/10/21 05:26 Neut # (Auto) 1.8 x10^3/uL (2.2-4.8) L 10/10/21 05:26 Lymph # (Auto) 1.1 X10^3/uL (1.3-2.9) L 10/10/21 05:26 [place] # (Auto) 0.3 x10^3/uL (0.3-0.8) 10/10/21 05:26 Eos # (Auto) 0.2 x10^3/uL (0.0-0.2) 10/10/21 05:26 Baso # (Auto) 0.0 X10^3/uL (0.0-0.1) 10/10/21 05:26 Absolute Nucleated RBC 0.1 /100WBC 10/10/21 05:26 Total Counted Cancelled 10/08/21 06:15 Neutrophils % (Manual) Cancelled 10/08/21 06:15 Band Neutrophils % Cancelled 10/08/21 06:15 Lymphocytes % (Manual) Cancelled 10/08/21 06:15 Monocytes % (Manual) Cancelled 10/08/21 06:15 Eosinophils % (Manual) Cancelled 10/08/21 06:15 Basophils % (Manual) Cancelled 10/08/21 06:15 Metamyelocytes % Cancelled 10/08/21 06:15 Myelocytes % Cancelled 10/08/21 06:15 Promyelocytes % Cancelled 10/08/21 06:15 Plt Morphology Comment Normal (NORMAL) 10/10/21 05:26 RBC Morphology Abnormal (NORMAL) A 10/10/21 05:26 Poikilocytosis Slight A 10/10/21 05:26 Anisocytosis 3+ A 10/10/21 05:26 Macrocytosis Slight A 10/10/21 05:26 Schistocytes Rare 10/08/21 06:15 Sodium 143 mmol/L (136-145) 10/10/21 05:26 Corrected Sodium 144 mmol/L (136-145) 10/10/21 05:26 Potassium 3.2 mmol/L (3.5-5.1) L 10/10/21 05:26 Chloride 108 mmol/L (98-107) H 10/10/21 05:26 Carbon Dioxide 24.9 mmol/L (21-32) 10/10/21 05:26 BUN 35 mg/dL (7-18) H 10/10/21 05:26 Creatinine 0.83 mg/dL (0.55-1.02) 10/10/21 05:26 Est GFR (MDRD) Af Amer > 60 (>60) 10/10/21 05:26 Est GFR (MDRD) Non-Af > 60 (>60) 10/10/21 05:26 Glucose 144 mg/dL (65-99) H 10/10/21 05:26 POC Glucose (mg/dL) 154 mg/dL (65-99) H 10/10/21 11:03 Hemoglobin A1c 6.0 % 10/09/21 05:45 Calcium 8.4 mg/dL (8.5-10.1) L 10/10/21 05:26 Corrected Calcium 9.0 mg/dL (8.5-10.1) 10/10/21 05:26 Total Bilirubin 5.70 mg/dL (0.2-1.0) H 10/10/21 05:26 AST 51 Units/L (15-37) H 10/10/21 05:26 ALT 54 Units/L (12-78) 10/10/21 05:26 Alkaline Phosphatase 165 Units/L (46-116) H 10/10/21 05:26 Ammonia 32 umol/L (11-32) 10/10/21 05:26 Total Protein 5.7 g/dL (6.4-8.2) L 10/10/21 05:26 Albumin 3.2 g/dL (3.4-5.0) L 10/10/21 05:26 Globulin 2.5 g/dL (2.5-4.5) 10/10/21 05:26 Albumin/Globulin Ratio 1.3 Ratio (1.1-2.1) 10/10/21 05:26 Specimen Type Catherized urine 10/08/21 18:30 Urine Color Yellow (YELLOW) 10/08/21 18:30 Urine Appearance Hazy (CLEAR) 10/08/21 18:30 Urine pH 6.0 (5.0 - 8.0) 10/08/21 18:30 Ur Specific [place] 1.015 (1.000-1.030) 10/08/21 18:30 Urine Protein 2+ (NEGATIVE) 10/08/21 18:30 Urine Glucose (UA) Negative (NEGATIVE) 10/08/21 18: Urine Ketones 1+ (NEGATIVE) 10/08/21 18:30 Urine Occult Blood 4+ (NEGATIVE) 10/08/21 18:30 Urine Nitrite Negative (NEGATIVE) 10/08/21 18:30 Urine Bilirubin Negative (NEGATIVE) 10/08/21 18:30 Urine Urobilinogen Normal (NORMAL) 10/08/21 18:30 Ur Leukocyte Esterase 3+ (NEGATIVE) 10/08/21 18:30 Urine RBC 0-2 /HPF (0-3) 10/08/21 18:30 Urine WBC Tntc /HPF (0-5) A 10/08/21 18:30 Ur Squamous Epith Cells Few /HPF (NEGATIVE) 10/08/21 18:30 Urine Bacteria 3+ /HPF (NEGATIVE) 10/08/21 18:30 Ur Culture Indicated? Yes/culture set up 10/08/21 18:30 SARS CoV-2 RNA Rapid NATALYA Negative (NEGATIVE) 10/07/21 20:31 Radiology Reviewed: Yes Plan (1) Hypokalemia: Status: Acute Plan: Potassium replacement protocol. (2) Cirrhosis of liver: Status: Acute (3) Encephalopathy, hepatic: Status: Resolved Plan: Lactulose qid. (4) Hyponatremia: Status: Resolved (5) UTI (urinary tract infection): Status: Acute Narrative Support Text: Urine culture Citrobacter Freundii Plan: D/C Rocephin and change to Cipro (6) Hyperglycemia: Status: Acute Plan: Check A1C and start Regular insulin sliding scale.
[2021-10-10 12:30] VITALS: BP 133/62
[2021-10-10] MEDS ORDERED: LASIX PO SCH (21:00)
--- NOTE | 2021-10-12 11:00 | RAD ---
HISTORYCHECK NG TUBE PLACEMENT Relevant Clinical [id number]/31/2022 .br.br.br.br There is some mild atelectasis in the left base. Right base is clear. There is no evidence of free air under the diaphragm. There is a stent in the right upper quadrant. There is gas in both small and large bowel in a nonspecific, nonobstructive pattern.IMPRESSIONAdequate positioning of the nasogastric tube. Nonspecific, nonobstructive bowel gas pattern.Electronically signed by: Rohit Pires (Oct 09, 2021 10:09:33)
--- NOTE | 2021-10-30 08:42 | PCM.DCPLAN ---
DISCHARGE SUMMARY Admission Date Date of Admission: 10/07/21 Discharge Date Discharge Date: 10/10/21 Admission Diagnoses (1) Hypokalemia: Status: Acute (2) Cirrhosis of liver: Status: Acute (3) Encephalopathy, hepatic: Status: Resolved (4) Hyponatremia: Status: Resolved (5) UTI (urinary tract infection): Status: Acute (6) Hyperglycemia: Status: Acute Discharge Diagnoses Discharge Diagnosis: 1. Hepatic Encephalopathy resolved. 2. UTI 3. Chronic liver failure 4. Hyponatremia- resolved 5. DM- stable Discharge Medications Discharge Medications: Home Medication List albuterol sulfate [ProAir HFA] 2 puff INHALATION Q6H PRN 10/08/21 [History] lactulose 30 ml PO QID #3600 ml 10/10/21 [Rx] Prescriptions: lactulose RENE MASCORRO Hospital Course Vital Signs: Temperature 97.9 F Pulse Rate [Bilateral Radial] 79 Pulse Rate 53 Respiratory Rate 20 Blood Pressure [Right Arm] 133/62 Blood Pressure 141/67 O2 Sat by Pulse Oximetry 100 Latest Lab Results: Laboratory Last Values WBC 3.5 X10^3/uL (3.6-10.0) L 10/10/21 05:26 RBC 2.17 X10^6/uL (3.5-5.4) L 10/10/21 05:26 Hgb 8.2 g/dL (12.0-16.0) L 10/10/21 05:26 Hct 22.6 % (36.0-47.0) L 10/10/21 05:26 MCV 104.3 fL (80.0-100.0) H 10/10/21 05:26 MCH 37.6 pg (27.0-34.0) H 10/10/21 05:26 MCHC 36.0 g/dL (33.0-35.0) H 10/10/21 05:26 RDW 26.6 % (11.6-16.5) H 10/10/21 05:26 Plt Count 114 X10^3/uL (150.0-450.0) L 10/10/21 05:26 Plt Count Comment Decreased (ADEQUATE) A 10/10/21 05:26 MPV 7.9 fL (7.4-11.0) 10/10/21 05:26 Neut % (Auto) 51.5 % (42.0-75.0) 10/10/21 05:26 Lymph % (Auto) 32.7 % (21.0-51.0) 10/10/21 05:26 [place] % (Auto) 9.5 % (0.0-13.0) 10/10/21 05:26 Eos % (Auto) 5.7 % (0.9-2.9) H 10/10/21 05:26 Baso % (Auto) 0.6 % (0.2-1.0) 10/10/21 05:26 Neut # (Auto) 1.8 x10^3/uL (2.2-4.8) L 10/10/21 05:26 Lymph # (Auto) 1.1 X10^3/uL (1.3-2.9) L 10/10/21 05:26 [place] # (Auto) 0.3 x10^3/uL (0.3-0.8) 10/10/21 05:26 Eos # (Auto) 0.2 x10^3/uL (0.0-0.2) 10/10/21 05:26 Baso # (Auto) 0.0 X10^3/uL (0.0-0.1) 10/10/21 05:26 Absolute Nucleated RBC 0.1 /100WBC 10/10/21 05:26 Total Counted Cancelled 10/08/21 06:15 Neutrophils % (Manual) Cancelled 10/08/21 06:15 Band Neutrophils % Cancelled 10/08/21 06:15 Lymphocytes % (Manual) Cancelled 10/08/21 06:15 Monocytes % (Manual) Cancelled 10/08/21 06:15 Eosinophils % (Manual) Cancelled 10/08/21 06:15 Basophils % (Manual) Cancelled 10/08/21 06:15 Metamyelocytes % Cancelled 10/08/21 06:15 Myelocytes % Cancelled 10/08/21 06:15 Promyelocytes % Cancelled 10/08/21 06:15 Plt Morphology Comment Normal (NORMAL) 10/10/21 05:26 RBC Morphology Abnormal (NORMAL) A 10/10/21 05:26 Poikilocytosis Slight A 10/10/21 05:26 Anisocytosis 3+ A 10/10/21 05:26 Macrocytosis Slight A 10/10/21 05:26 Schistocytes Rare 10/08/21 06:15 Sodium 143 mmol/L (136-145) 10/10/21 05:26 Corrected Sodium 144 mmol/L (136-145) 10/10/21 05:26 Potassium 3.2 mmol/L (3.5-5.1) L 10/10/21 05:26 Chloride 108 mmol/L (98-107) H 10/10/21 05:26 Carbon Dioxide 24.9 mmol/L (21-32) 10/10/21 05:26 BUN 35 mg/dL (7-18) H 10/10/21 05:26 Creatinine 0.83 mg/dL (0.55-1.02) 10/10/21 05:26 Est GFR (MDRD) Af Amer > 60 (>60) 10/10/21 05:26 Est GFR (MDRD) Non-Af > 60 (>60) 10/10/21 05:26 Glucose 144 mg/dL (65-99) H 10/10/21 05:26 POC Glucose (mg/dL) 361 mg/dL (65-99) H 10/10/21 15:54 Hemoglobin A1c 6.0 % 10/09/21 05:45 Calcium 8.4 mg/dL (8.5-10.1) L 10/10/21 05:26 Corrected Calcium 9.0 mg/dL (8.5-10.1) 10/10/21 05:26 Total Bilirubin 5.70 mg/dL (0.2-1.0) H 10/10/21 05:26 AST 51 Units/L (15-37) H 10/10/21 05:26 ALT 54 Units/L (12-78) 10/10/21 05:26 Alkaline Phosphatase 165 Units/L (46-116) H 10/10/21 05:26 Ammonia 32 umol/L (11-32) 10/10/21 05:26 Total Protein 5.7 g/dL (6.4-8.2) L 10/10/21 05:26 Albumin 3.2 g/dL (3.4-5.0) L 10/10/21 05:26 Globulin 2.5 g/dL (2.5-4.5) 10/10/21 05:26 Albumin/Globulin Ratio 1.3 Ratio (1.1-2.1) 10/10/21 05:26 Specimen Type Catherized urine 10/08/21 18:30 Urine Color Yellow (YELLOW) 10/08/21 18:30 Urine Appearance Hazy (CLEAR) 10/08/21 18:30 Urine pH 6.0 (5.0 - 8.0) 10/08/21 18:30 Ur Specific [place] 1.015 (1.000-1.030) 10/08/21 18:30 Urine Protein 2+ (NEGATIVE) 10/08/21 18:30 Urine Glucose (UA) Negative (NEGATIVE) 10/08/21 18:30 Urine Ketones 1+ (NEGATIVE) 10/08/21 18: Urine Occult Blood 4+ (NEGATIVE) 10/08/21 18:30 Urine Nitrite Negative (NEGATIVE) 10/08/21 18: Urine Bilirubin Negative (NEGATIVE) 10/08/21 18:30 Urine Urobilinogen Normal (NORMAL) 10/08/21 18:30 Ur Leukocyte Esterase 3+ (NEGATIVE) 10/08/21 18:30 Urine RBC 0-2 /HPF (0-3) 10/08/21 18:30 Urine WBC Tntc /HPF (0-5) A 10/08/21 18:30 Ur Squamous Epith Cells Few /HPF (NEGATIVE) 10/08/21 18:30 discharged mUrine Bacteria 3+ /HPF (NEGATIVE) 10/08/21 18:30 Ur Culture Indicated? Yes/culture set up 10/08/21 18:30 SARS CoV-2 RNA Rapid NATALYA Negative (NEGATIVE) 10/07/21 20:31 Hospital Course: Following admission the patient was given Lactulose for elevated ammonia levels. These trended down over the 4 days she was in the hospital. There was confusion about getting hospice care among patients family with the patient ultimately deciding not to do hospice at this time. Her sodium levels eventually normalized with NS IVF. She was treated with IV Cipro for UTI. Her daughter is a nurse who has been taking care of her at home She was discharged home at her request in stable condition. Instructions Instructions: Anemia Hepatic Encephalopathy Hyperglycemia, [id number] Liver Failure Cirrhosis Forms: Excuse From Work or School Precautions for COVID19 [place] [facility] Social Distancing
== END 2021-10-10 17:40 | disposition home health service (06) | DRG 442 ==
LOC: ER 16:06 → MED/SURG 16:06 → OBSVTOIN 21:19 → MED/SURG 21:55
PROVIDERS: ADMIT Internal Medicine; ATTEND Family Medicine
DX: R41.82 Altered mental status, unspecified; Z20.822 Contact with and (suspected) exposure to COVID-19; K72.00 Acute and subacute hepatic failure without coma; E87.6 Hypokalemia; E11.65 Type 2 diabetes mellitus with hyperglycemia; N39.0 Urinary tract infection, site not specified; K72.10 Chronic hepatic failure without coma; E87.1 Hypo-osmolality and hyponatremia; K74.69 Other cirrhosis of liver; B96.89 Other specified bacterial agents as the cause of diseases classified elsewhere

== ENCOUNTER 2021-10-22 15:59 | Inpatient (IN) ==
[2021-10-22 16:43] LABS: BILIRUBIN,URINE NEGATIVE (NEGATIVE); BLOOD/HEMOGLOBIN,URINE NEGATIVE (NEGATIVE); GLUCOSE, URINE 3+ (NEGATIVE); KETONES,URINE NEGATIVE (NEGATIVE); LEUKOCYTE ESTERASE ,URINE 1+ (NEGATIVE); NITRITES,URINE NEGATIVE (NEGATIVE); PROTEIN,URINE 2+ (NEGATIVE); UROBILINOGEN,URINE NORMAL (NORMAL)
--- NOTE | 2021-10-22 16:46 | DR.GENAD ---
HPI Time Seen Time Seen by Provider: 10/22/21 16:25 PCP Primary Care Physician: Boo HPI Comment HPI Comment: PATIENT IS 65YR OLD FEMALE IN ER WITH WEAKNESS, MALAISE, DIZZINESS AND NAUSEA AND VOMITING. PATIENT DIAGNOSED WITH VERTIGO 3 DAYS AGO. DENIES FEVER OR DYSURIA. HER SYMPTOMS ARE WORSE TODAY. Complaint/Symptoms Chief Complaint Doctors Comments: NAUSEA, VOMITING AND MALAISE Chief Complaint:: Pt states " I don't feel right. I just feel sick since last night." When asked to elaborate pt reports nausea and vomiting. She states she was diagnosed with vertigo three days ago. COVID-19 Coronavirus risk:travel/contact w/high risk person: No Has patient experienced Coronavirus symptoms: No Nurses notes reviewed Nurses Notes Review: Yes Source History Provided: Patient Mode of Arrival Mode of Arrival: Stretcher Timing Onset of Chief Complaint: 10/21/21 Came on: Suddenly Duration Duration: Constant Duration: Days Severity Severity: Moderate Modifying Factors Worsens:: EXERTION Improves:: REST Associated Signs and Symptoms Associated Signs and Symptoms: WEAK Other History Other History: DM, LIVER DISEASE. PMH PMH Past Medical History: Yes Past Medical History: Diabetes and Liver Disease Past Surgical History: Yes Surgical History: Hysterectomy and Ortho Surgery Past Surgical History Comment: gastric bypass, "shunt in abdomen" Family History History of Family Medical Conditions: No Family Medical History: Diabetes Mellitus and Coronary Artery Disease Social History Does patient currently use any type of tobacco product: No Have you used tobacco products in the last 12 months: No Type of Tobacco Use: None Does any household member use tobacco: No Alcohol Use: None Do you use any recreational Drugs:: No Lives With: Family Lives Where: Home Travel Risk Coronavirus risk:travel/contact w/high risk person: No Has patient experienced Coronavirus symptoms: No Infectious screening In the last 2 months have you had wt loss of >10#?: NO Have you had fever, night sweats or hemotysis?: No Have you traveled outside the country in the last 6 months?: No Isolation: Standard ROS Review of Systems Constitutional: See HPI and Malaise; negative Fever, Weakness and Fatigue Eyes: No Symptoms Reported and See HPI ENTM: No Symptoms Reported and See HPI; negative Nose Discharge and Nose Congestion Respiratoy: No Symptoms Reported and See HPI; negative Moist Cough, Short of Breath and Wheezing Cardiovascular: No Symptoms Reported and See HPI; negative Chest Pain Gastrointestinal/Abdominal: See HPI, Nausea and Vomiting Genitourinary: No Symptoms Reported and See HPI; negative Dysuria and Hematuria Neurological: See HPI, Weakness and Dizziness; negative Headache Musculoskeletal: No Symptoms Reported and See HPI; negative Muscle Pain Integumentary: No Symptoms Reported and See HPI; negative Rash and Juandice Hematologic/Lymphatic: See HPI and Easy Bruising Endocrine: No Symptoms Reported and See HPI; negative Increased Thirst and Increased Urine Psychiatric: No Symptoms Reported and See HPI All Other Systems: Reviewed and Negative PE Vital Signs Vitals: Temperature 98.0 F Pulse Rate 67 Respiratory Rate 16 Blood Pressure [Right Arm] 133/62 Blood Pressure 134/57 O2 Sat by Pulse Oximetry 100 General Limitations: No Limitations General Appearance: Alert and In No Apparent Distress Head Head Exam: Normal Inspection, Atraumatic and Normocephalic Eyes Eye exam: Normal Appearance; negative Scleral Icterus and Conjunctival Injection ENT ENT Exam: Normal Exam, Normal Oropharynx, Normal External Ear Exam and TM's Normal Bilaterally External Ear Exam: Normal External Inspection; negative Mastoid Tenderness TM/Canal Exam: Bilateral: Normal Nose Exam: Normal Nose Exam Mouth Exam: Normal Inspection; negative Lip Swelling and Tongue Swelling Throat Exam: Normal Inspection; negative Tonsillar Erythema, Tonsillomegaly and Tonsillar Exudate Neck Neck Exam: Normal Inspection and Trachea Midline; negative Tenderness Chest Chest Inspection: Normal Inspection and Symmetric Chest Wall Rise; negative Tenderness Respiratory Respiratory Exam: Normal Lung Sounds Bilat; negative Accessory Muscle Use, Chest Wall Tenderness and Respiratory Distress Respiratory Exam: Bilateral: Clear to Auscultation Cardiovascular Cardiovascular Exam: Regular Rate, Normal Rhythm and Normal Heart Sounds; negative Systolic Murmur and Diastolic Murmur Abdominal Exam Abdominal Exam: Normal Inspection, Normal Bowel Sounds and Soft; negative Tend erness Extremities Extremities Exam: Normal Inspection and Normal Capillary Refill Back Back Exam: Normal Inspection; negative (R) CVA Tenderness and (L) CVA Tenderness Neurologic Neurological Exam: Alert, Oriented X3 and CN II-XII Intact; negative Motor Sensory Deficit Psychiatric Psychiatric Exam: Normal Affect and Normal Mood Skin Skin Exam: Warm, Dry, Intact and Normal Color MDM Differential Diagnosis Differential Diagnosis: GENERALIZED WEAKNESS, DIZZINESS, MALAISE, VERTIGO COURSE Treatment Treatment: SEE ORDERS. Consultation Consultation Comments: DISCUSSED PATIENT WITH DR. JONES. HE WILL ADMIT PATIENT. Education/Counseling Education/Counseling: Patient Educated On: Diagnosis ROR Labs Reviewed Laboratory Results Reviewed?: Yes Result Diagrams: 10/24/21 05:35 10/24/21 05:35 Laboratory: WBC 6.9 X10^3/uL (3.6-10.0) 10/22/21 16:12 RBC 2.42 X10^6/uL (3.5-5.4) L 10/22/21 16:12 Hgb 9.7 g/dL (12.0-16.0) L 10/22/21 16:12 Hct 26.6 % (36.0-47.0) L 10/22/21 16:12 MCV 109.6 fL (80.0-100.0) H 10/22/21 16:12 MCH 40.0 pg (27.0-34.0) H 10/22/21 16:12 MCHC 36.5 g/dL (33.0-35.0) H 10/22/21 16:12 RDW 23.6 % (11.6-16.5) H 10/22/21 16:12 Plt Count 140 X10^3/uL (150.0-450.0) L 10/22/21 16:12 Plt Count Comment Decreased (ADEQUATE) A 10/22/21 16:12 MPV 8.6 fL (7.4-11.0) 10/22/21 16:12 Neut % (Auto) 71.9 % (42.0-75.0) 10/22/21 16:12 Lymph % (Auto) 12.0 % (21.0-51.0) L 10/22/21 16:12 [place] % (Auto) 9.3 % (0.0-13.0) 10/22/21 16:12 Eos % (Auto) 3.7 % (0.9-2.9) H 10/22/21 16:12 Baso % (Auto) 3.1 % (0.2-1.0) H 10/22/21 16:12 Neut # (Auto) 4.9 x10^3/uL (2.2-4.8) H 10/22/21 16:12 Lymph # (Auto) 0.8 X10^3/uL (1.3-2.9) L 10/22/21 16:12 [place] # (Auto) 0.6 x10^3/uL (0.3-0.8) 10/22/21 16:12 Eos # (Auto) 0.3 x10^3/uL (0.0-0.2) H 10/22/21 16:12 Baso # (Auto) 0.2 X10^3/uL (0.0-0.1) H 10/22/21 16:12 Absolute Nucleated RBC 0.1 /100WBC 10/22/21 16:12 Plt Morphology Comment Normal (NORMAL) 10/22/21 16:12 RBC Morphology Abnormal (NORMAL) A 10/22/21 16:12 Anisocytosis Slight A 10/22/21 16:12 Macrocytosis 1+ A 10/22/21 16:12 PT 16.1 SECONDS (11.8-14.3) 10/22/21 16:12 INR Target Range - 10/22/21 16:12 INR 1.36 (0.8-1.3) H 10/22/21 16:12 APTT 36.3 SECONDS (22.9-36.5) 10/22/21 16:12 PTT Comment - 10/22/21 16:12 Sodium 121 mmol/L (136-145) L* 10/22/21 16:12 Corrected Sodium 126 mmol/L (136-145) L 10/22/21 16:12 Potassium 5.7 mmol/L (3.5-5.1) H 10/22/21 20:12 Chloride 85 mmol/L (98-107) L 10/22/21 16:12 Carbon Dioxide 27.2 mmol/L (21-32) 10/22/21 16:12 BUN 88 mg/dL (7-18) H 10/22/21 16:12 Creatinine 2.52 mg/dL (0.55-1.02) H 10/22/21 16:12 Est GFR (MDRD) Af Amer 25 (>60) L 10/22/21 16:12 Est GFR (MDRD) Non-Af 20 (>60) L 10/22/21 16:12 Glucose 307 mg/dL (65-99) H 10/22/21 16:12 POC Glucose (mg/dL) 217 mg/dL (65-99) H 10/22/21 18:15 Calcium 9.1 mg/dL (8.5-10.1) 10/22/21 16:12 Corrected Calcium TNP 10/22/21 16:12 Total Bilirubin 4.50 mg/dL (0.2-1.0) H 10/22/21 16:12 AST 53 Units/L (15-37) H 10/22/21 16:12 ALT 58 Units/L (12-78) 10/22/21 16:12 Alkaline Phosphatase 268 Units/L (46-116) H 10/22/21 16:12 Ammonia 25 umol/L (11-32) 10/22/21 18:10 Creatine Kinase 29 Units/L (26-192) 10/22/21 16:12 CK-MB (CK-2) 1.2 ng/mL (0-4.0) 10/22/21 16:12 CK/CKMB % Calc 4.1 % (<4) 10/22/21 16:12 Troponin I High Sens 14.4 ng/L (4.0-60.0) 10/22/21 16:12 Total Protein 6.6 g/dL (6.4-8.2) 10/22/21 16:12 Albumin 3.7 g/dL (3.4-5.0) 10/22/21 16:12 Globulin 2.9 g/dL (2.5-4.5) 10/22/21 16:12 Albumin/Globulin Ratio 1.3 Ratio (1.1-2.1) 10/22/21 16:12 Specimen Type Random urine 10/22/21 16:19 Urine Color Yellow (YELLOW) 10/22/21 16:19 Urine Appearance Clear (CLEAR) 10/22/21 16:19 Urine pH 5.0 (5.0 - 8.0) 10/22/21 16:19 Ur Specific [place] 1.015 (1.000-1.030) 10/22/21 16:19 Urine Protein 2+ (NEGATIVE) 10/22/21 16:19 Urine Glucose (UA) 3+ (NEGATIVE) 10/22/21 16:19 Urine Ketones Negative (NEGATIVE) 10/22/21 16:19 Urine Occult Blood Negative (NEGATIVE) 10/22/21 16:19 Urine Nitrite Negative (NEGATIVE) 10/22/21 16:19 Urine Bilirubin Negative (NEGATIVE) 10/22/21 16:19 Urine Urobilinogen Normal (NORMAL) 10/22/21 16:19 Ur Leukocyte Esterase 1+ (NEGATIVE) 10/22/21 16:19 Urine RBC None seen /HPF (0-3) 10/22/21 16:19 Urine WBC 5-10 /HPF (0-5) A 10/22/21 16:19 Ur Squamous Epith Cells Few /HPF (NEGATIVE) 10/22/21 16:19 Urine Bacteria Trace /HPF (NEGATIVE) 10/22/21 16:19 Ur Culture Indicated? No/not indicated 10/22/21 16:19 SARS CoV-2 RNA Rapid NATALYA Negative (NEGATIVE) 10/22/21 19:07 XRAY XRAY Interpreted by: Radiologist (REPORT NOTED.) and Self EKG Rate: 70 [place]: Normal Rhythm: NSR Block: IVCD Hypertrophy: LVH ST: Lat and Ischemia Opioid Opioid Risk Tool Age (Steven box if 16-45): No History of Preadolescent Sexual Abuse: No Total: 0 Total Score Risk Category: Low Risk Copyright: Antonio LARA predicting aberrant behaviors Diagnosis Discharge Problem: Acute hyperkalemia, Acute hyponatremia, Altered mental state Instructions Instructions: Anemia Hepatic Encephalopathy Type 1 or Type 2 Diabetes Mellitus During , Self-Care Dehydration, Adult, [id number] Hyperkalemia, [id number] Hyponatremia, [id number] Delirium Forms: Precautions for COVID19 [facility] Patient [facility] Social Distancing
[2021-10-22 17:00] LABS: APPEARANCE,URINE CLEAR (CLEAR); COLOR,URINE YELLOW (YELLOW)
[2021-10-22 17:01] LABS: BACTERIA,URINE TRACE /HPF (NEGATIVE); RBC,URINE NONE SEEN /HPF (0-3); SQUAMOUS EPITHELIAL CELL,UR FEW /HPF (NEGATIVE)
[2021-10-22 17:02] LABS: BASOPHILS # (AUTO) 0.2 X10^3/uL (0.0-0.1); BASOPHILS % (AUTO) 3.1 % (0.2-1.0); EOSINOPHILS # (AUTO) 0.3 x10^3/uL (0.0-0.2); EOSINOPHILS % (AUTO) 3.7 % (0.9-2.9); HEMATOCRIT 26.6 % (36.0-47.0); HEMOGLOBIN 9.7 g/dL (12.0-16.0); LYMPHOCYTES # (AUTO) 0.8 X10^3/uL (1.3-2.9); MEAN CORPUSCULAR HGB CONC 36.5 g/dL (33.0-35.0); MEAN CORPUSCULAR VOLUME 109.6 fL (80.0-100.0); MEAN PLATELET VOLUME 8.6 fL (7.4-11.0); MONOCYTES # (AUTO) 0.6 x10^3/uL (0.3-0.8); MONOCYTES % (AUTO) 9.3 % (0.0-13.0); NEUTROPHILS # (AUTO) 4.9 x10^3/uL (2.2-4.8); NEUTROPHILS % (AUTO) 71.9 % (42.0-75.0); RED BLOOD COUNT 2.42 X10^6/uL (3.5-5.4); RED CELL DISTRIBUTION WIDTH 23.6 % (11.6-16.5); WHITE BLOOD COUNT 6.9 X10^3/uL (3.6-10.0)
[2021-10-22 17:12] LABS: ALANINE AMINOTRANSFERASE 58 Units/L (12-78); ALBUMIN 3.7 g/dL (3.4-5.0); ALKALINE PHOSPHATASE 268 Units/L (46-116); ASPARTATE AMINO TRANSFERASE 53 Units/L (15-37); BLOOD UREA NITROGEN 88 mg/dL (7-18); CALCIUM 9.1 mg/dL (8.5-10.1); CARBON DIOXIDE 27.2 mmol/L (21-32); CHLORIDE 85 mmol/L (98-107); COR NA(FOR HYPERGLY) 126 mmol/L (136-145); CREATININE 2.52 mg/dL (0.55-1.02); TOTAL PROTEIN 6.6 g/dL (6.4-8.2); eGFR NON BLACK RACES 20 (>60)
[2021-10-22 17:23] LABS: SODIUM 121 mmol/L (136-145)
[2021-10-22 17:25] LABS: ANISOCYTOSIS SLIGHT; PLATELET MORPHOLOGY COMMENT NORMAL (NORMAL)
[2021-10-22] MEDS ORDERED: D50W ABBOJECT SYR IV ONE (17:53)
[2021-10-22] MEDS ORDERED: NovoLIN R (or HumuLIN R) IV ONE (17:55)
[2021-10-22] MEDS ORDERED: NS 1,000 ML IV 1,000 ML IV SCH ×2 (18:00)
[2021-10-22] MEDS ORDERED: NS 1,000 ML IV 1,000 ML ONE (18:12)
[2021-10-22] MEDS ORDERED: D50W ABBOJECT SYR ONE (18:12)
[2021-10-22] MEDS ORDERED: NovoLIN R (or HumuLIN R) ONE ×2 (18:13→18:23)
[2021-10-22] MEDS ORDERED: KAYEXALATE SUSP PO ONE (19:27)
--- NOTE | 2021-10-22 19:30 | RAD ---
HISTORYPt states " I don't feel right. I just feel sick since last night." When asked to elaborate pt reports nausea and vomiting. She states she was diagnosed with vertigo three days ago.STUDYCHEST, 1 VIEWCOMPARISONJanuary 2021TECHNIQUEChest radiographic imaging, AP portable projection, 1 imageFINDINGSNo cardiomegaly.No focal airspace disease.No pleural effusion.No pneumothorax.No acute osseous abnormality.Metallic stent in the right upper abdomen.IMPRESSIONNo imaging findings of acute cardiopulmonary disease.Electronically signed by: Seven Verma (Oct 22, 2021 19:29:29)
[2021-10-22 19:35] LABS: CKMB % 4.1 % (<4); CREATINE KINASE MB 1.2 ng/mL (0-4.0)
[2021-10-22] MEDS ORDERED: KAYEXALATE SUSP ONE (19:43)
[2021-10-22] MEDS ORDERED: AQUA-MEPHYTON ADULT INJ ONE (20:54)
[2021-10-22] MEDS: AQUA-MEPHYTON ADULT INJ SC ONE (21:01)
[2021-10-22] MEDS ORDERED: PROVENTIL NEB TX 0.083% 2.5MG/ 3ML NEB PRN (21:37)
[2021-10-22] MEDS: SNACK - Diabetic Appropriate PO SCH (22:00)
[2021-10-22] MEDS: NS 1,000 ML IV 1,000 ML IV SCH (22:00)
[2021-10-23] MEDS: NovoLIN R (or HumuLIN R) SUBCUT PRN ×4 (01:30→22:13)
[2021-10-23] MEDS ORDERED: NovoLIN R (or HumuLIN R) ONE (01:34)
[2021-10-23 06:11] LABS: BASOPHILS % (AUTO) 0.5 % (0.2-1.0); EOSINOPHILS # (AUTO) 0.2 x10^3/uL (0.0-0.2); HEMATOCRIT 24.4 % (36.0-47.0); HEMOGLOBIN 8.9 g/dL (12.0-16.0); LYMPHOCYTES # (AUTO) 1.2 X10^3/uL (1.3-2.9); LYMPHOCYTES % (AUTO) 22.2 % (21.0-51.0); MEAN CORPUSCULAR HEMOGLOBIN 40.3 pg (27.0-34.0); MEAN CORPUSCULAR HGB CONC 36.6 g/dL (33.0-35.0); MEAN PLATELET VOLUME 8.2 fL (7.4-11.0); MONOCYTES # (AUTO) 0.6 x10^3/uL (0.3-0.8); MONOCYTES % (AUTO) 11.8 % (0.0-13.0); NEUTROPHILS # (AUTO) 3.3 x10^3/uL (2.2-4.8); NEUTROPHILS % (AUTO) 61.5 % (42.0-75.0); RED BLOOD COUNT 2.22 X10^6/uL (3.5-5.4); WHITE BLOOD COUNT 5.4 X10^3/uL (3.6-10.0)
[2021-10-23] MEDS: NS 1,000 ML IV 1,000 ML IV SCH ×3 (06:12→22:00)
[2021-10-23 06:20] LABS: ALBUMIN 3.1 g/dL (3.4-5.0); CARBON DIOXIDE 28.7 mmol/L (21-32); COR CA(FOR HYPOALB) 8.7 mg/dL (8.5-10.1); CREATININE 1.97 mg/dL (0.55-1.02); MAGNESIUM 2.8 mg/dL (1.7-2.9); TOTAL PROTEIN 5.9 g/dL (6.4-8.2)
[2021-10-23 06:41] LABS: PLATELET MORPHOLOGY COMMENT NORMAL (NORMAL)
[2021-10-23 06:42] LABS: ANISOCYTOSIS 2+; HELMET CELLS PRESENT
--- NOTE | 2021-10-23 13:54 | DR.H&P ---
H&P History & Physical for Day of: H&P Date: 10/22/21 Chief Complaint Chief Complaint: I don't feel well. Allergies Allergies Allergy/AdvReac Type Severity Reaction Status Date / Time aspirin Allergy Verified 07/28/21 12:48 codeine Allergy Verified 07/28/21 12:48 iodine Allergy Verified 07/28/21 12:48 latex Allergy Verified 07/28/21 12:48 mushroom Allergy Verified 07/28/21 13:28 NSAIDS (Non-Steroidal Allergy Verified 07/28/21 12:48 Anti-Inflamma Penicillins Allergy Verified 07/28/21 12:48 rice Allergy Verified 07/28/21 13:28 Sulfa (Sulfonamide Allergy Verified 07/28/21 12:48 Antibiotics) [SULFA] History of Present Illness History of Present Illness: This is a patient well known to me. She has a history of chronic liver failure with hepatic cirrhosis. She is also a diabetic on insulin. She reports feeling bad over the last 2-3 days with the sensation of vertigo and associated nausea and vomiting. Last night is when her symptoms got worse, so she came to the ED for further evaluation. She has been taking Meclizine as an outpatient for the vertigo. Work up in the ED revealed she had some confusion, and her Sodium level was low at 121 She also had hyperkalemia with a K level at 6.4, BUN 88. Past Medical History Past Medical History: Cirrhosis, Diabetes and Liver Disease Additional Medical History: Vertigo Past Surgical History Surgical History: Hysterectomy and Ortho Surgery Additional Surgical History: Gastric bypass Family History Family Medical History: Diabetes Mellitus and Coronary Artery Disease Social History Does patient currently use any type of tobacco product: No Have you used tobacco products in the last 12 months: No Type of Tobacco Use: None Does any household member use tobacco: No Alcohol Use: None Drug Use: None Medications Home Medications: aspirin Allergy (Verified 07/28/21 12:48) codeine Allergy (Verified 07/28/21 12:48) iodine Allergy (Verified 07/28/21 12:48) latex Allergy (Verified 07/28/21 12:48) mushroom Allergy (Verified 07/28/21 13:28) NSAIDS (Non-Steroidal Anti-Inflamma Allergy (Verified 07/28/21 12:48) Penicillins Allergy (Verified 07/28/21 12:48) rice Allergy (Verified 07/28/21 13:28) Sulfa (Sulfonamide Antibiotics) [SULFA] Allergy (Verified 07/28/21 12:48) CONTINUE taking the following medications ipratropium-albuterol 3 ml INHALATION Q6H PRN 10/23/21 [History] pantoprazole 40 mg PO DAILY 10/23/21 [History] temazepam 30 mg PO HS PRN 10/23/21 [History] Labs Result Diagrams: 10/23/21 05:33 10/23/21 05:33 Labs: Laboratory WBC 5.4 X10^3/uL (3.6-10.0) 10/23/21 05:33 RBC 2.22 X10^6/uL (3.5-5.4) L 10/23/21 05:33 Hgb 8.9 g/dL (12.0-16.0) L 10/23/21 05:33 Hct 24.4 % (36.0-47.0) L 10/23/21 05:33 MCV 110.0 fL (80.0-100.0) H 10/23/21 05:33 MCH 40.3 pg (27.0-34.0) H 10/23/21 05:33 MCHC 36.6 g/dL (33.0-35.0) H 10/23/21 05:33 RDW 23.0 % (11.6-16.5) H 10/23/21 05:33 Plt Count 114 X10^3/uL (150.0-450.0) L 10/23/21 05:33 Plt Count Comment Decreased (ADEQUATE) A 10/23/21 05:33 MPV 8.2 fL (7.4-11.0) 10/23/21 05:33 Neut % (Auto) 61.5 % (42.0-75.0) 10/23/21 05:33 Lymph % (Auto) 22.2 % (21.0-51.0) 10/23/21 05:33 [place] % (Auto) 11.8 % (0.0-13.0) 10/23/21 05:33 Eos % (Auto) 4.0 % (0.9-2.9) H 10/23/21 05:33 Baso % (Auto) 0.5 % (0.2-1.0) 10/23/21 05:33 Neut # (Auto) 3.3 x10^3/uL (2.2-4.8) 10/23/21 05:33 Lymph # (Auto) 1.2 X10^3/uL (1.3-2.9) L 10/23/21 05:33 [place] # (Auto) 0.6 x10^3/uL (0.3-0.8) 10/23/21 05:33 Eos # (Auto) 0.2 x10^3/uL (0.0-0.2) 10/23/21 05:33 Baso # (Auto) 0.0 X10^3/uL (0.0-0.1) 10/23/21 05:33 Absolute Nucleated RBC 0.0 /100WBC 10/23/21 05:33 Plt Morphology Comment Normal (NORMAL) 10/23/21 05:33 RBC Morphology Abnormal (NORMAL) A 10/23/21 05:33 Anisocytosis 2+ A 10/23/21 05:33 Macrocytosis 1+ A 10/23/21 05:33 Helmet Cells Present 10/23/21 05:33 PT 16.5 SECONDS (11.8-14.3) 10/23/21 05:33 INR Target Range - 10/23/21 05:33 INR 1.40 (0.8-1.3) H 10/23/21 05:33 APTT 38.4 SECONDS (22.9-36.5) H 10/23/21 05:33 PTT Comment - 10/23/21 05:33 Sodium 122 mmol/L (136-145) L* 10/23/21 05:33 Corrected Sodium 126 mmol/L (136-145) L 10/23/21 05:33 Potassium 5.4 mmol/L (3.5-5.1) H 10/23/21 05:33 Chloride 87 mmol/L (98-107) L 10/23/21 05:33 Carbon Dioxide 28.7 mmol/L (21-32) 10/23/21 05:33 BUN 80 mg/dL (7-18) H 10/23/21 05:33 Creatinine 1.97 mg/dL (0.55-1.02) H 10/23/21 05:33 Est GFR (MDRD) Af Amer 33 (>60) L 10/23/21 05:33 Est GFR (MDRD) Non-Af 27 (>60) L 10/23/21 05:33 Glucose 270 mg/dL (65-99) H 10/23/21 05:33 POC Glucose (mg/dL) 193 mg/dL (65-99) H 10/23/21 10:51 Calcium 8.0 mg/dL (8.5-10.1) L 10/23/21 05:33 Corrected Calcium 8.7 mg/dL (8.5-10.1) 10/23/21 05:33 Magnesium 2.8 mg/dL (1.7-2.9) 10/23/21 05:33 Total Bilirubin 3.80 mg/dL (0.2-1.0) H 10/23/21 05:33 AST 42 Units/L (15-37) H 10/23/21 05:33 ALT 49 Units/L (12-78) 10/23/21 05:33 Alkaline Phosphatase 238 Units/L (46-116) H 10/23/21 05:33 Ammonia 25 umol/L (11-32) 10/22/21 18:10 Creatine Kinase 29 Units/L (26-192) 10/22/21 16:12 CK-MB (CK-2) 1.2 ng/mL (0-4.0) 10/22/21 16:12 CK/CKMB % Calc 4.1 % (<4) 10/22/21 16:12 Troponin I High Sens 14.4 ng/L (4.0-60.0) 10/22/21 16:12 Total Protein 5.9 g/dL (6.4-8.2) L 10/23/21 05:33 Albumin 3.1 g/dL (3.4-5.0) L 10/23/21 05:33 Globulin 2.8 g/dL (2.5-4.5) 10/23/21 05:33 Albumin/Globulin Ratio 1.1 Ratio (1.1-2.1) 10/23/21 05:33 Specimen Type Random urine 10/22/21 16:19 Urine Color Yellow (YELLOW) 10/22/21 16:19 Urine Appearance Clear (CLEAR) 10/22/21 16:19 Urine pH 5.0 (5.0 - 8.0) 10/22/21 16:19 Ur Specific [place] 1.015 (1.000-1.030) 10/22/21 16:19 Urine Protein 2+ (NEGATIVE) 10/22/21 16:19 Urine Glucose (UA) 3+ (NEGATIVE) 10/22/21 16:19 Urine Ketones Negative (NEGATIVE) 10/22/21 16:19 Urine Occult Blood Negative (NEGATIVE) 10/22/21 16:19 Urine Nitrite Negative (NEGATIVE) 10/22/21 16:19 Urine Bilirubin Negative (NEGATIVE) 10/22/21 16:19 Urine Urobilinogen Normal (NORMAL) 10/22/21 16:19 Ur Leukocyte Esterase 1+ (NEGATIVE) 10/22/21 16:19 Urine RBC None seen /HPF (0-3) 10/22/21 16:19 Urine WBC 5-10 /HPF (0-5) A 10/22/21 16:19 Ur Squamous Epith Cells Few /HPF (NEGATIVE) 10/22/21 16:19 Urine Bacteria Trace /HPF (NEGATIVE) 10/22/21 16:19 Ur Culture Indicated? No/not indicated 10/22/21 16:19 SARS CoV-2 RNA Rapid NATALYA Negative (NEGATIVE) 10/22/21 19:07 Review of Systems Constitutional: Weakness and Malaise Eyes: No Symptoms Reported ENT: No Symptoms Reported Respiratory: No Symptoms Reported Cardiovascular: No Symptoms Reported Gastrointestinal: No Symptoms Reported Musculoskeletal: No Symptoms Reported Skin: No Symptoms Reported Neurological: Weakness and Confusion Physical Exam Vital Signs: Temperature 97.3 F Pulse Rate [Left Radial] 69 Pulse Rate 67 Respiratory Rate 17 Blood Pressure [Right Arm] 117/51 Blood Pressure 134/57 O2 Sat by Pulse Oximetry 100 Oriented: Normal, Time, Person and Place Eyes: Normal Ear: Normal Nose: Normal Throat: Normal Respiratory: Clear Throughout Cardiovascular: Normal : Normal Auscultation: Bowel Sounds: Normal Palpation: Normal Tenderness: Normal Skin: Normal Musculoskeletal: Instability Psychiatric: Normal Mood Description: Calm Affect: Normal Speech Pattern: Clear and Appropriate Assessment/Plan (1) DM2 (diabetes mellitus, type 2): Status: Acute Plan: sliding scale insulin protocol. (2) Acute hyperkalemia: Status: Acute Plan: Kayexylate, daily Potassium levels. (3) Acute hyponatremia: Status: Acute Plan: NS IVF hydration, CMP in am (4) Altered mental state: Status: Acute Plan: monitor. (5) Hyperglycemia: Status: Acute Plan: Insulin, restart home insulin meds. (6) Anemia, chronic disease: Status: Acute Plan: Monitor Hb (7) Dehydration: Status: Acute Plan: IV hydration (8) Cirrhosis of liver: Status: Acute (9) Azotemia: Status: Acute Plan: IVF Review H&P Reviewed: Yes Patient was examined?: Yes
[2021-10-23] MEDS ORDERED: ALBUTEROL IN PRN (14:06)
[2021-10-23] MEDS ORDERED: ULTRAM PO PRN (14:06)
[2021-10-23] MEDS ORDERED: RESTORIL CAP 30 MG PO PRN (14:06)
[2021-10-23] MEDS ORDERED: DUONEB 0.5 MG/3 MG (3 mL) NEB PRN (15:00)
[2021-10-23] MEDS ORDERED: KAYEXALATE SUSP PO NR (15:00)
[2021-10-23] MEDS: PROTONIX TAB 40 MG PO SCH (15:03)
[2021-10-23] MEDS: PROAMATINE PO SCH ×2 (15:44→21:15)
[2021-10-23] MEDS: CHRONULAC PO SCH ×2 (16:56→20:39)
[2021-10-23 19:29] VITALS: BMI 18.5
[2021-10-23] MEDS ORDERED: SNACK - Diabetic Appropriate PO SCH (20:00)
[2021-10-23] MEDS: SNACK - Diabetic Appropriate PO SCH (20:21)
[2021-10-23] MEDS: XIFAXAN PO SCH (20:39)
[2021-10-23] MEDS ORDERED: RESTORIL CAP 15 MG PO PRN (21:00)
[2021-10-23] MEDS ORDERED: MIRAPEX TAB 1 MG PO SCH (21:00)
[2021-10-23] MEDS ORDERED: LANTUS SC SCH (21:00)
[2021-10-24] MEDS: NS 1,000 ML IV 1,000 ML IV SCH (03:24)
[2021-10-24] MEDS: PROAMATINE PO SCH (05:31)
[2021-10-24] MEDS: NovoLIN R (or HumuLIN R) SUBCUT PRN (05:32)
[2021-10-24 06:16] LABS: BASOPHILS % (AUTO) 0.7 % (0.2-1.0); EOSINOPHILS # (AUTO) 0.1 x10^3/uL (0.0-0.2); EOSINOPHILS % (AUTO) 4.6 % (0.9-2.9); LYMPHOCYTES # (AUTO) 0.9 X10^3/uL (1.3-2.9); LYMPHOCYTES % (AUTO) 32.2 % (21.0-51.0); MEAN CORPUSCULAR HEMOGLOBIN 40.4 pg (27.0-34.0); MEAN CORPUSCULAR HGB CONC 36.6 g/dL (33.0-35.0); MEAN CORPUSCULAR VOLUME 110.3 fL (80.0-100.0); MEAN PLATELET VOLUME 8.3 fL (7.4-11.0); MONOCYTES # (AUTO) 0.4 x10^3/uL (0.3-0.8); MONOCYTES % (AUTO) 12.4 % (0.0-13.0); NEUTROPHILS # (AUTO) 1.5 x10^3/uL (2.2-4.8); NEUTROPHILS % (AUTO) 50.1 % (42.0-75.0); RED BLOOD COUNT 1.99 X10^6/uL (3.5-5.4); RED CELL DISTRIBUTION WIDTH 22.6 % (11.6-16.5); WHITE BLOOD COUNT 2.9 X10^3/uL (3.6-10.0)
[2021-10-24 06:37] LABS: ALBUMIN 2.8 g/dL (3.4-5.0); CALCIUM 7.4 mg/dL (8.5-10.1); CARBON DIOXIDE 27.1 mmol/L (21-32); COR CA(FOR HYPOALB) 8.4 mg/dL (8.5-10.1); CREATININE 1.42 mg/dL (0.55-1.02); TOTAL PROTEIN 5.3 g/dL (6.4-8.2)
[2021-10-24 07:04] LABS: PLATELET MORPHOLOGY COMMENT NORMAL (NORMAL)
[2021-10-24 07:05] LABS: ANISOCYTOSIS 2+; HELMET CELLS PRESENT
[2021-10-24 07:48] VITALS: BP 113/54
[2021-10-24] MEDS: CHRONULAC PO SCH (08:00)
[2021-10-24] MEDS: XIFAXAN PO SCH (08:01)
[2021-10-24] MEDS: PROTONIX TAB 40 MG PO SCH (08:01)
[2021-10-24] MEDS ORDERED: VITAMIN D3 25 mcg (1,000 UNITS) PO SCH (09:00)
--- NOTE | 2021-10-30 09:16 | PCM.DCPLAN ---
DISCHARGE SUMMARY Admission Date Date of Admission: 10/22/21 Discharge Date Discharge Date: 10/24/21 Admission Diagnoses (1) DM2 (diabetes mellitus, type 2): Status: Acute (2) Acute hyperkalemia: Status: Acute (3) Acute hyponatremia: Status: Acute (4) Altered mental state: Status: Resolved (5) Hyperglycemia: Status: Acute (6) Anemia, chronic disease: Status: Acute (7) Dehydration: Status: Acute (8) Cirrhosis of liver: Status: Acute (9) Azotemia: Status: Acute (10) Chronic liver failure: Status: Acute Discharge Diagnoses Discharge Diagnosis: 1. Chronic Liver failure with cirrhosis 2. Azotemia- resolved 3. DM- Stable 4. Dehydration- resolved 5. Hyponatremia- Resolved 6. Hyperkalemia- Resolved 7. AMS- resolved 8. Anemia of chronic disease 9. Chronic Thrombocytopenia Discharge Medications Discharge Medications: Home Medication List ipratropium-albuterol 3 ml INHALATION Q6H PRN 10/23/21 [History] pantoprazole 40 mg PO DAILY 10/23/21 [History] temazepam 30 mg PO HS PRN 10/23/21 [History] spironolactone [Aldactone] 50 mg PO BID #60 tab 10/24/21 [Rx] Prescriptions: spironolactone [Aldactone] RENE MASC[facility]RO Hospital Course Vital Signs: Temperature 97.6 F Pulse Rate [Left Radial] 69 Pulse Rate 67 Respiratory Rate 16 Blood Pressure [Right Arm] 113/54 Blood Pressure 134/57 O2 Sat by Pulse Oximetry 100 Latest Lab Results: Laboratory Last Values WBC 2.9 X10^3/uL (3.6-10.0) L 10/24/21 05:35 RBC 1.99 X10^6/uL (3.5-5.4) L 10/24/21 05:35 Hgb 8.0 g/dL (12.0-16.0) L 10/24/21 05:35 Hct 22.0 % (36.0-47.0) L 10/24/21 05:35 MCV 110.3 fL (80.0-100.0) H 10/24/21 05:35 MCH 40.4 pg (27.0-34.0) H 10/24/21 05:35 MCHC 36.6 g/dL (33.0-35.0) H 10/24/21 05:35 RDW 22.6 % (11.6-16.5) H 10/24/21 05:35 Plt Count 106 X10^3/uL (150.0-450.0) L 10/24/21 05:35 Plt Count Comment Decreased (ADEQUATE) A 10/24/21 05:35 MPV 8.3 fL (7.4-11.0) 10/24/21 05:35 Neut % (Auto) 50.1 % (42.0-75.0) 10/24/21 05:35 Lymph % (Auto) 32.2 % (21.0-51.0) 10/24/21 05:35 [place] % (Auto) 12.4 % (0.0-13.0) 10/24/21 05:35 Eos % (Auto) 4.6 % (0.9-2.9) H 10/24/21 05:35 Baso % (Auto) 0.7 % (0.2-1.0) 10/24/21 05:35 Neut # (Auto) 1.5 x10^3/uL (2.2-4.8) L 10/24/21 05:35 Lymph # (Auto) 0.9 X10^3/uL (1.3-2.9) L 10/24/21 05:35 [place] # (Auto) 0.4 x10^3/uL (0.3-0.8) 10/24/21 05:35 Eos # (Auto) 0.1 x10^3/uL (0.0-0.2) 10/24/21 05:35 Baso # (Auto) 0.0 X10^3/uL (0.0-0.1) 10/24/21 05:35 Absolute Nucleated RBC 0.1 /100WBC 10/24/21 05:35 Plt Morphology Comment Normal (NORMAL) 10/24/21 05:35 RBC Morphology Abnormal (NORMAL) A 10/24/21 05:35 Anisocytosis 2+ A 10/24/21 05:35 Macrocytosis 2+ A 10/24/21 05:35 Helmet Cells Present 10/24/21 05:35 PT 16.5 SECONDS (11.8-14.3) 10/23/21 05:33 INR Target Range - 10/23/21 05:33 INR 1.40 (0.8-1.3) H 10/23/21 05:33 APTT 38.4 SECONDS (22.9-36.5) H 10/23/21 05:33 PTT Comment - 10/23/21 05:33 Sodium 131 mmol/L (136-145) L 10/24/21 05:35 Corrected Sodium 134 mmol/L (136-145) L 10/24/21 05:35 Potassium 4.2 mmol/L (3.5-5.1) 10/24/21 05:35 Chloride 97 mmol/L (98-107) L 10/24/21 05:35 Carbon Dioxide 27.1 mmol/L (21-32) 10/24/21 05:35 BUN 64 mg/dL (7-18) H 10/24/21 05:35 Creatinine 1.42 mg/dL (0.55-1.02) H 10/24/21 05:35 Est GFR (MDRD) Af Amer 48 (>60) L 10/24/21 05:35 Est GFR (MDRD) Non-Af 40 (>60) L 10/24/21 05:35 Glucose 218 mg/dL (65-99) H 10/24/21 05:35 POC Glucose (mg/dL) 221 mg/dL (65-99) H 10/24/21 05:24 Calcium 7.4 mg/dL (8.5-10.1) L 10/24/21 05:35 Corrected Calcium 8.4 mg/dL (8.5-10.1) L 10/24/21 05:35 Magnesium 2.8 mg/dL (1.7-2.9) 10/23/21 05:33 Total Bilirubin 3.30 mg/dL (0.2-1.0) H 10/24/21 05:35 AST 70 Units/L (15-37) H 10/24/21 05:35 ALT 56 Units/L (12-78) 10/24/21 05:35 Alkaline Phosphatase 227 Units/L (46-116) H 10/24/21 05:35 Ammonia 58 umol/L (11-32) H 10/24/21 05:35 Creatine Kinase 29 Units/L (26-192) 10/22/21 16:12 CK-MB (CK-2) 1.2 ng/mL (0-4.0) 10/22/21 16:12 CK/CKMB % Calc 4.1 % (<4) 10/22/21 16:12 Troponin I High Sens 14.4 ng/L (4.0-60.0) 10/22/21 16:12 Total Protein 5.3 g/dL (6.4-8.2) L 10/24/21 05:35 Albumin 2.8 g/dL (3.4-5.0) L 10/24/21 05:35 Globulin 2.5 g/dL (2.5-4.5) 10/24/21 05:35 Albumin/Globulin Ratio 1.1 Ratio (1.1-2.1) 10/24/21 05:35 Specimen Type Random urine 10/22/21 16:19 Urine Color Yellow (YELLOW) 10/22/21 16:19 Urine Appearance Clear (CLEAR) 10/22/21 16:19 Urine pH 5.0 (5.0 - 8.0) 10/22/21 16:19 Ur Specific [place] 1.015 (1.000-1.030) 10/22/21 16:19 Urine Protein 2+ (NEGATIVE) 10/22/21 16:19 Urine Glucose (UA) 3+ (NEGATIVE) 10/22/21 16:19 Urine Ketones Negative (NEGATIVE) 10/22/21 16:19 Urine Occult Blood Negative (NEGATIVE) 10/22/21 16:19 Urine Nitrite Negative (NEGATIVE) 10/22/21 16:19 Urine Bilirubin Negative (NEGATIVE) 10/22/21 16:19 Urine Urobilinogen Normal (NORMAL) 10/22/21 16:19 Ur Leukocyte Esterase 1+ (NEGATIVE) 10/22/21 16:19 Urine RBC None seen /HPF (0-3) 10/22/21 16:19 Urine WBC 5-10 /HPF (0-5) A 10/22/21 16:19 Ur Squamous Epith Cells Few /HPF (NEGATIVE) 10/22/21 16:19 Urine Bacteria Trace /HPF (NEGATIVE) 10/22/21 16:19 Ur Culture Indicated? No/not indicated 10/22/21 16:19 SARS CoV-2 RNA Rapid NATALYA Negative (NEGATIVE) 10/22/21 19:07 Hospital Course: After admission the patient remained confused overnight as a result of her h yponatremia. The patient was given Zofran for her nausea and vomiting. Na level on admission was 121. K was 6.4. She was on Spironolactone 100 mg bid. The medicine was held and she was given Kayexylate. By the next morning she was alert and her sodium level was 126. K level had come down to 5.4 where she was given another 30 grams of Kayexylate. Her hydration status had improved. By the 3rd day she was feeling much better and her electrolytes had normalized. Her home medicine Spironolactone dose was changed to 50 mg bid to help prevent another episode of hyperkalemia, hyponatremia and dehydration. Instructions Instructions: Anemia Hepatic Encephalopathy Type 1 or Type 2 Diabetes Mellitus During , Self-Care Dehydration, Adult, [id number]-Ipva Hyperkalemia, [id number] Hyponatremia, [id number] Delirium Forms: Precautions for COVID19 [facility] Social Distancing
== END 2021-10-24 11:20 | disposition home health service (06) | DRG 639 ==
LOC: ER 15:59 → MED/SURG 20:56
PROVIDERS: ADMIT Obstetrics & Gynecology Obstetrics; ATTEND Family Medicine
DX: D63.8 Anemia in other chronic diseases classified elsewhere; Z79.4 Long term (current) use of insulin; R26.89 Other abnormalities of gait and mobility; R79.89 Other specified abnormal findings of blood chemistry; R79.1 Abnormal coagulation profile; Z20.822 Contact with and (suspected) exposure to COVID-19; R13.11 Dysphagia, oral phase; E11.65 Type 2 diabetes mellitus with hyperglycemia; E87.5 Hyperkalemia; E86.0 Dehydration; R41.82 Altered mental status, unspecified; R94.31 Abnormal electrocardiogram [ECG] [EKG]; K74.60 Unspecified cirrhosis of liver

== ENCOUNTER 2021-10-28 09:03 | Inpatient (IN) ==
--- NOTE | 2021-10-28 09:25 | DR.AMS ---
HPI Time Seen Time Seen by Provider: 10/28/21 09:24 PCP Primary Care Physician: DR MASCORRO HPI Comment HPI Comment: PATIENT IS 65YR OLD FEMALE IN ER WITH AMS. SHE IS RESPONDING TO PAINFULL STIMULI. HISTORY LIVER CIRRHOSIS WITH INCREASE AMMONIA LEVEL AND P REVIOUS HEPATIC ENCEPHALOPATHY. SHE TOOK MEDICATION LAST NIGHT AND WOKE UP THIS AM UNRESPONSIVE. NO FEVER. Complaint Cheif Complaint Doctors Comments: AMS. Chief Complaint:: ACCORDING TO EMS PT DAUGHTER REPORTS TO THAT PT WAS ABLE TO TAKE NIGHT MEDS LAST NIGHT BUT THIS MORNING WHEN SHE CHECKED ON HER SHE WAS UNABLE TO GET HER TO RESPOND. PT IS UNRESPONSIVE TO EVERYTHING BUT PAINFUL STIMULI. COVID-19 Coronavirus risk:travel/contact w/high risk person: No Has patient experienced Coronavirus symptoms: No Reviewed Nurses Notes Reviewed: Yes Source History Provided: EMS Mode of Arrival Mode of Arrival: EMS Timing Onset of Chief Complaint: 10/28/21 Came On: Suddenly Symptoms: Unchanged Duration Duration: Constant Duration: Hours Quality Quality: Decreased Alertness and Change in Behavior Severity Severity: Severe Context Recent: denies Fever (HYPOTHERMIA) History Of: CVA and Hypoglycemia Associated Signs and Symptoms Associated Signs and Symptoms: Generalized Weakness, Decreased LOC and Unresponsiveness PMH PMH Past Medical History: Yes Past Medical History: Diabetes and Liver Disease Past Surgical History: Yes Surgical History: Hysterectomy and Ortho Surgery Past Surgical History Comment: TIPS Family History History of Family Medical Conditions: Yes Family Medical History: Diabetes Mellitus and Coronary Artery Disease Social History Does patient currently use any type of tobacco product: No Have you used tobacco products in the last 12 months: No Type of Tobacco Use: None Does any household member use tobacco: No Alcohol Use: None Do you use any recreational Drugs:: No Lives With: Family Lives Where: Home Travel Risk Coronavirus risk:travel/contact w/high risk person: No Has patient experienced Coronavirus symptoms: No Infectious screening In the last 2 months have you had wt loss of >10#?: NO Have you had fever, night sweats or hemotysis?: No Have you traveled outside the country in the last 6 months?: No Isolation: Standard ROS Review of Systems Constitutional: No Symptoms Reported, See HPI and Weakness; negative Fever (HYPOTHERMIA.) Eyes: No Symptoms Reported and See HPI ENTM: No Symptoms Reported and See HPI; negative Nose Discharge and Nose Congestion Respiratoy: See HPI and Short of Breath; negative Moist Cough and Wheezing Cardiovascular: No Symptoms Reported and See HPI; negative Chest Pain and Edema Gastrointestinal/Abdominal: See HPI; negative Abdominal Pain, Diarrhea, Nausea and Vomiting Genitourinary: No Symptoms Reported and See HPI; negative Dysuria Neurological: See HPI, Headache and Weakness; negative Dizziness Musculoskeletal: No Symptoms Reported, See HPI and Back Pain Integumentary: No Symptoms Reported, See HPI, Rash (LOWER EXTREMITIES HEALING.) and Juandice Hematologic/Lymphatic: No Symptoms Reported, See HPI, Easy Bleeding and Easy Bruising Endocrine: No Symptoms Reported and See HPI; negative Increased Thirst and Increased Urine Psychiatric: No Symptoms Reported and See HPI All Other Systems: Reviewed and Negative PE Vitals Vital Signs: Temp Pulse Resp BP BP Pulse Ox 10/28/21 11:45 69 67 H 10/28/21 11:30 96.3 F L 74 32 H 113/53 97 10/28/21 11:15 63 53 H 100 10/28/21 11:00 67 64 H 108/53 100 10/28/21 10:45 62 42 H 100 10/28/21 10:30 95.3 F L 64 43 H 99/51 100 10/28/21 10:15 61 27 H 100 10/28/21 10:00 61 46 H 101/53 100 10/28/21 09:45 62 46 H 100 10/28/21 09:42 94.6 F L 10/28/21 09:30 66 33 H 122/57 100 10/28/21 09:16 68 38 H 100 10/28/21 09:10 67 22 122/60 100 10/24/21 07:47 113/54 General Limitations: Altered Mental Status General Appearance: Alert and In Distress (SHALLOW RESPIRATION.) Head Head Exam: Normal Inspection, Atraumatic and Normocephalic Head Exam Physical: Other (NONE NOTED.) Eyes Eye exam: Normal Appearance; negative Scleral Icterus and Conjunctival Injection Pupils: Regular, Round: Bilateral and Reactive: Bilateral ENT ENT Exam: Normal Exam External Ear Exam: Normal External Inspection TM/Canal Exam: Bilateral: Normal Nose Exam: Normal Nose Exam Mouth Exam: Normal Inspection Throat Exam: Normal Inspection; negative Tonsillar Erythema, Tonsillomegaly and Tonsillar Exudate Neck Neck Exam: Normal Inspection and Trachea Midline; negative Tenderness Chest Chest Inspection: Normal Inspection and Symmetric Chest Wall Rise; negative Tenderness Respiratory Respiratory Exam: Normal Lung Sounds Bilat and Respiratory Distress; negative Accessory Muscle Use and Chest Wall Tenderness Respiratory Exam: Lower: Rhonchi Cardiovascular Cardiovascular Exam: Regular Rate, Normal Rhythm and Normal Heart Sounds; negative Systolic Murmur and Diastolic Murmur Abdominal Exam Abdominal Exam: Normal Inspection, Normal Bowel Sounds and Soft; negative Tenderness Extremities Extremities Exam: Normal Inspection and Normal Capillary Refill Back Back Exam: Normal Inspection; negative (R) CVA Tenderness and (L) CVA Tenderness Neurological Neurological Exam: Oriented X3 and Other (UNRESPONSIVE. RESPOND TO PAINFULL STIMULI.); negative Motor Sensory Deficit Patient Oriented To: negative Person, Place and Time Speech: Other (UNRESPONSIVE. RESPOND TO PAINFULL STIMULI.) Cranial Nerve Exam: Gag reflex (XI): Normal Upper Motor Neuron Exam: Babinski Sign: Normal Psychological Psychiatric Exam: Other (UNRESPONSIVE.) Skin Skin Exam: Dry and Other (JUANDICE) MDM Additional Information Obtained Additional Information Obtained From: Old Records Differential Diagnosis Metabolic: Dehydration, Hypercalcemia, Hypernatremia, Hypoglycemia, Hyponatremia and Hypoxemia Structural: CVA and Mass Lesion Infectious: Sepsis and UTI Environmental: Hypothermia COURSE Treatment Treatment: SEE ORDER DONE WHILE PATIENT IN ER. NS 20CC/HR, LACTULOSE 30CC AND FLAGYL 500MG IV IN ER. Consultation Consultation Comments: DISCUSSED PATIENT WITH DR. MENDOZA. SHE WILL ADMIT PATIENT. Education/Counseling Education/Counseling: Patient Educated On: Diagnosis and Needs for Follow Up ROR Labs Reviewed Laboratory Results Reviewed?: Yes Result Diagrams: 10/30/21 05:28 10/30/21 05:28 Laboratory: 10/28/21 09:27 Blood Blood Culture - Final 10/28/21 09:18 Blood Blood Culture - Final WBC 3.1 X10^3/uL (3.6-10.0) L 10/28/21 09:18 RBC 2.39 X10^6/uL (3.5-5.4) L 10/28/21 09:18 Hgb 9.4 g/dL (12.0-16.0) L 10/28/21 09:18 Hct 25.9 % (36.0-47.0) L 10/28/21 09:18 MCV 108.5 fL (80.0-100.0) H 10/28/21 09:18 MCH 39.2 pg (27.0-34.0) H 10/28/21 09:18 MCHC 36.1 g/dL (33.0-35.0) H 10/28/21 09:18 RDW 21.2 % (11.6-16.5) H 10/28/21 09:18 Plt Count 141 X10^3/uL (150.0-450.0) L 10/28/21 09:18 Plt Count Comment Decreased (ADEQUATE) A 10/28/21 09:18 MPV 9.1 fL (7.4-11.0) 10/28/21 09:18 Neut % (Auto) 60.3 % (42.0-75.0) 10/28/21 09:18 Lymph % (Auto) 23.4 % (21.0-51.0) 10/28/21 09:18 [place] % (Auto) 9.5 % (0.0-13.0) 10/28/21 09:18 Eos % (Auto) 5.5 % (0.9-2.9) H 10/28/21 09:18 Baso % (Auto) 1.3 % (0.2-1.0) H 10/28/21 09:18 Neut # (Auto) 1.9 x10^3/uL (2.2-4.8) L 10/28/21 09:18 Lymph # (Auto) 0.7 X10^3/uL (1.3-2.9) L 10/28/21 09:18 [place] # (Auto) 0.3 x10^3/uL (0.3-0.8) 10/28/21 09:18 Eos # (Auto) 0.2 x10^3/uL (0.0-0.2) 10/28/21 09:18 Baso # (Auto) 0.0 X10^3/uL (0.0-0.1) 10/28/21 09:18 Absolute Nucleated RBC 0.2 /100WBC 10/28/21 09:18 Plt Morphology Comment Normal (NORMAL) 10/28/21 09:18 RBC Morphology Abnormal (NORMAL) A 10/28/21 09:18 Poikilocytosis Slight A 10/28/21 09:18 Anisocytosis 1+ A 10/28/21 09:18 Macrocytosis 1+ A 10/28/21 09:18 Helmet Cells Present 10/28/21 09:18 Schistocytes Present 10/28/21 09:18 PT 15.8 SECONDS (11.8-14.3) 10/28/21 09:58 INR Target Range - 10/28/21 09:58 INR 1.33 (0.8-1.3) H 10/28/21 09:58 APTT 34.6 SECONDS (22.9-36.5) 10/28/21 09:58 PTT Comment - 10/28/21 09:58 Sodium 127 mmol/L (136-145) L 10/28/21 09:18 Corrected Sodium 129 mmol/L (136-145) L 10/28/21 09:18 Potassium 4.3 mmol/L (3.5-5.1) 10/28/21 09:18 Chloride 94 mmol/L (98-107) L 10/28/21 09:18 Carbon Dioxide 24.0 mmol/L (21-32) 10/28/21 09:18 BUN 61 mg/dL (7-18) H 10/28/21 09:18 Creatinine 1.55 mg/dL (0.55-1.02) H 10/28/21 09:18 Est GFR (MDRD) Af Amer 43 (>60) L 10/28/21 09:18 Est GFR (MDRD) Non-Af 36 (>60) L 10/28/21 09:18 Glucose 166 mg/dL (65-99) H 10/28/21 09:18 Lactic Acid 3.1 mmol/L (0.4-2.0) H 10/28/21 09:18 Calcium 8.4 mg/dL (8.5-10.1) L 10/28/21 09:18 Corrected Calcium 9.1 mg/dL (8.5-10.1) 10/28/21 09:18 Total Bilirubin 4.40 mg/dL (0.2-1.0) H 10/28/21 09:18 AST 60 Units/L (15-37) H 10/28/21 09:18 ALT 66 Units/L (12-78) 10/28/21 09:18 Alkaline Phosphatase 284 Units/L (46-116) H 10/28/21 09:18 Ammonia 108 umol/L (11-32) H 10/28/21 09:18 Creatine Kinase 31 Units/L (26-192) 10/28/21 09:18 CK-MB (CK-2) 1.0 ng/mL (0-4.0) 10/28/21 09:18 CK/CKMB % Calc 3.2 % (<4) 10/28/21 09:18 Troponin I High Sens 11.2 ng/L (4.0-60.0) 10/28/21 09:18 Total Protein 5.9 g/dL (6.4-8.2) L 10/28/21 09:18 Albumin 3.1 g/dL (3.4-5.0) L 10/28/21 09:18 Globulin 2.8 g/dL (2.5-4.5) 10/28/21 09:18 Albumin/Globulin Ratio 1.1 Ratio (1.1-2.1) 10/28/21 09:18 Amylase 93 Units/L (25-115) 10/28/21 09:58 Lipase 221 Units/L (73-393) 10/28/21 09:58 Specimen Type Catherized urine 10/28/21 09:20 Urine Color Yellow (YELLOW) 10/28/21 09:20 Urine Appearance Clear (CLEAR) 10/28/21 09:20 Urine pH 6.0 (5.0 - 8.0) 10/28/21 09:[address] 1.020 (1.000-1.030) 10/28/21 09:20 Urine Protein Negative (NEGATIVE) 10/28/21 09:20 Urine Glucose (UA) Negative (NEGATIVE) 10/28/21 09:20 Urine Ketones Negative (NEGATIVE) 10/28/21 09:20 Urine Occult Blood Negative (NEGATIVE) 10/28/21 09:20 Urine Nitrite Negative (NEGATIVE) 10/28/21 09:20 Urine Bilirubin Negative (NEGATIVE) 10/28/21 09:20 Urine Urobilinogen Normal (NORMAL) 10/28/21 09:20 Ur Leukocyte Esterase 1+ (NEGATIVE) 10/28/21 09:20 Urine RBC None seen /HPF (0-3) 10/28/21 09:20 Urine WBC 0-2 /HPF (0-5) 10/28/21 09:20 Ur Squamous Epith Cells Negative /HPF (NEGATIVE) 10/28/21 09:20 Calcium Oxalate Crystal Few /HPF (NEGATIVE) 10/28/21 09:20 Urine Bacteria Trace /HPF (NEGATIVE) 10/28/21 09:20 Ur Culture Indicated? No/not indicated 10/28/21 09:20 Urine Opiates Screen Negative (NEG=<300) 10/28/21 09:20 Urine Methadone Screen Negative (NEG=<300) 10/28/21 09:20 Ur Barbiturates Screen Negative (NEG=<200) 10/28/21 09:20 Ur Phencyclidine Scrn Negative (NEG=<25) 10/28/21 09:20 Ur Amphetamines Screen Negative (NEG=<1000) 10/28/21 09:20 U Benzodiazepines Scrn Negative (NEG=<200) 10/28/21 09:20 Urine Cocaine Screen Negative (NEG=<300) 10/28/21 09:20 U Marijuana (THC) Screen Negative (NEG=<50) 10/28/21 09:20 SARS CoV-2 RNA Rapid NATALYA Negative (NEGATIVE) 10/28/21 10:22 XRAY XRAY Interpreted by: Radiologist (REPORT NOTED.) and Self EKG Rate: 63 [place]: LAD Rhythm: NSR Block: 1 Hypertrophy: None ST: Nonsp Opioid Opioid Risk Tool Age (Stveen box if 16-45): No History of Preadolescent Sexual Abuse: No Total: 0 Total Score Risk Category: Low Risk Copyright: Antonio LARA predicting aberrant behaviors Diagnosis Discharge Problem: Encephalopathy, hepatic, Acute hyponatremia, Acute uremia, Lactic acidemia Altered mental status Qualifiers: Altered mental status type: unspecified Qualified Code(s): R41.82 - Altered mental status, unspecified Hypothermia Qualifiers: Encounter type: initial encounter Qualified Code(s): T68.XXXA - Hypothermia, initial encounter Instructions Instructions: Hepatic Encephalopathy Hypokalemia Dehydration, Adult, [id number] Form - Daily Diabetes Record Liver Failure Ammonia Test Hyponatremia, [id number] Delirium Blood Glucose Monitoring, Adult Forms: Excuse From Work or School Precautions for COVID19 [facility] Social Distancing
[2021-10-28 09:46] LABS: EOSINOPHILS # (AUTO) 0.2 x10^3/uL (0.0-0.2); EOSINOPHILS % (AUTO) 5.5 % (0.9-2.9); MEAN PLATELET VOLUME 9.1 fL (7.4-11.0); WHITE BLOOD COUNT 3.1 X10^3/uL (3.6-10.0)
[2021-10-28 09:51] LABS: BASOPHILS % (AUTO) 1.3 % (0.2-1.0); HEMATOCRIT 25.9 % (36.0-47.0); HEMOGLOBIN 9.4 g/dL (12.0-16.0); LYMPHOCYTES # (AUTO) 0.7 X10^3/uL (1.3-2.9); LYMPHOCYTES % (AUTO) 23.4 % (21.0-51.0); MEAN CORPUSCULAR HEMOGLOBIN 39.2 pg (27.0-34.0); MEAN CORPUSCULAR HGB CONC 36.1 g/dL (33.0-35.0); MEAN CORPUSCULAR VOLUME 108.5 fL (80.0-100.0); MONOCYTES # (AUTO) 0.3 x10^3/uL (0.3-0.8); MONOCYTES % (AUTO) 9.5 % (0.0-13.0); NEUTROPHILS # (AUTO) 1.9 x10^3/uL (2.2-4.8); NEUTROPHILS % (AUTO) 60.3 % (42.0-75.0); RED BLOOD COUNT 2.39 X10^6/uL (3.5-5.4); RED CELL DISTRIBUTION WIDTH 21.2 % (11.6-16.5)
[2021-10-28 09:52] LABS: BILIRUBIN,URINE NEGATIVE (NEGATIVE); BLOOD/HEMOGLOBIN,URINE NEGATIVE (NEGATIVE); GLUCOSE, URINE NEGATIVE (NEGATIVE); KETONES,URINE NEGATIVE (NEGATIVE); LEUKOCYTE ESTERASE ,URINE 1+ (NEGATIVE); NITRITES,URINE NEGATIVE (NEGATIVE); PROTEIN,URINE NEGATIVE (NEGATIVE); UROBILINOGEN,URINE NORMAL (NORMAL)
[2021-10-28 09:54] LABS: APPEARANCE,URINE CLEAR (CLEAR); COLOR,URINE YELLOW (YELLOW)
[2021-10-28 10:25] LABS: BACTERIA,URINE TRACE /HPF (NEGATIVE); RBC,URINE NONE SEEN /HPF (0-3); SQUAMOUS EPITHELIAL CELL,UR NEGATIVE /HPF (NEGATIVE)
[2021-10-28 10:26] LABS: CALCIUM OXALATE CRYSTALS,UR FEW /HPF (NEGATIVE)
[2021-10-28 10:32] LABS: PLATELET MORPHOLOGY COMMENT NORMAL (NORMAL)
[2021-10-28 10:35] LABS: LACTIC ACID 3.1 mmol/L (0.4-2.0)
[2021-10-28 10:40] LABS: HELMET CELLS PRESENT; SCHISTOCYTES PRESENT
--- NOTE | 2021-10-28 10:40 | RAD ---
HISTORYPT IS UNRESPONSIVE TO EVERYTHING BUT PAINFUL STIMULISOBSTUDYCHEST, 1 [id number] cardiomediastinal silhouette is stable. The lungs are clear without evidence of airspace disease or effusion. No pneumothorax. The bony thorax appears intact.IMPRESSIONNo acute cardiopulmonary disease.Electronically signed by: MIGUE VILLALOBOS (Oct 28, 2021 10:39:23)
[2021-10-28 10:41] LABS: ANISOCYTOSIS 1+; POIKILOCYTOSIS SLIGHT
[2021-10-28 10:42] LABS: ALBUMIN 3.1 g/dL (3.4-5.0); CALCIUM 8.4 mg/dL (8.5-10.1); CKMB % 3.2 % (<4); COR CA(FOR HYPOALB) 9.1 mg/dL (8.5-10.1); CREATININE 1.55 mg/dL (0.55-1.02); TOTAL PROTEIN 5.9 g/dL (6.4-8.2)
[2021-10-28] MEDS ORDERED: FLAGYL IV PREMIX 500 MG BAG 500 MG/100 ML BAG IV ONE ×2 (10:58→11:23)
[2021-10-28] MEDS ORDERED: CHRONULAC PO ONE (11:00)
[2021-10-28 11:08] LABS: AMYLASE 93 Units/L (25-115); LIPASE 221 Units/L (73-393)
[2021-10-28] MEDS ORDERED: CHRONULAC ONE (11:23)
[2021-10-28] MEDS: FLAGYL IV PREMIX 500 MG BAG 500 MG/100 ML BAG IV SCH ×3 (11:34→21:57)
--- NOTE | 2021-10-28 12:04 | RAD ---
HISTORYunresponsive- NG tube placementSTUDYCHEST, 1 VIEWCOMPARISONEarlier same dayFINDINGSThe cardiomediastinal silhouette is stable. Enteric tube placement with proximal side hole above the GE junction. Probable tips shunt overlying the right upper quadrant. Chronic interstitial markings without evidence of airspace disease or effusion. No pneumothorax. The bony thorax appears intact.IMPRESSIONEnteric tube with proximal side hole above the GE junction. Recommend advancement.Electronically signed by: MIGUE VILLALOBOS (Oct 28, 2021 12:03:22)
[2021-10-28 16:28] VITALS: BMI 18.5
[2021-10-28] MEDS: NS 1,000 ML IV 1,000 ML IV SCH (18:57)
[2021-10-29] MEDS: NS 1,000 ML IV 1,000 ML IV SCH ×2 (04:53→17:53)
[2021-10-29] MEDS: FLAGYL IV PREMIX 500 MG BAG 500 MG/100 ML BAG IV SCH ×4 (05:00→21:11)
[2021-10-29 05:40] LABS: BASOPHILS % (AUTO) 0.4 % (0.2-1.0); EOSINOPHILS # (AUTO) 0.1 x10^3/uL (0.0-0.2); MEAN CORPUSCULAR HEMOGLOBIN 40.3 pg (27.0-34.0); MONOCYTES # (AUTO) 0.5 x10^3/uL (0.3-0.8)
[2021-10-29 05:44] LABS: ALANINE AMINOTRANSFERASE 62 Units/L (12-78); ALBUMIN 2.9 g/dL (3.4-5.0); ALKALINE PHOSPHATASE 247 Units/L (46-116); ASPARTATE AMINO TRANSFERASE 69 Units/L (15-37); BLOOD UREA NITROGEN 48 mg/dL (7-18); CARBON DIOXIDE 24.8 mmol/L (21-32); CHLORIDE 101 mmol/L (98-107); COR CA(FOR HYPOALB) 8.9 mg/dL (8.5-10.1); COR NA(FOR HYPERGLY) 138 mmol/L (136-145); CREATININE 1.05 mg/dL (0.55-1.02); MAGNESIUM 1.7 mg/dL (1.7-2.9); SODIUM 137 mmol/L (136-145); TOTAL PROTEIN 5.3 g/dL (6.4-8.2); eGFR NON BLACK RACES 56 (>60)
[2021-10-29 05:45] LABS: EOSINOPHILS % (AUTO) 3.6 % (0.9-2.9); HEMATOCRIT 22.1 % (36.0-47.0); LYMPHOCYTES % (AUTO) 30.2 % (21.0-51.0); MEAN CORPUSCULAR HGB CONC 36.2 g/dL (33.0-35.0); MEAN CORPUSCULAR VOLUME 111.3 fL (80.0-100.0); MEAN PLATELET VOLUME 8.3 fL (7.4-11.0); MONOCYTES % (AUTO) 15.3 % (0.0-13.0); NEUTROPHILS # (AUTO) 1.7 x10^3/uL (2.2-4.8); NEUTROPHILS % (AUTO) 50.5 % (42.0-75.0); RED BLOOD COUNT 1.98 X10^6/uL (3.5-5.4); RED CELL DISTRIBUTION WIDTH 17.1 % (11.6-16.5)
[2021-10-29 06:06] LABS: PLATELET MORPHOLOGY COMMENT NORMAL (NORMAL); WHITE BLOOD COUNT 3.6 X10^3/uL (3.6-10.0)
[2021-10-29] MEDS ORDERED: ULTRAM PO PRN (10:47)
[2021-10-29] MEDS: ACCUNEB 1.25 MG NEBULE NEB PRN (13:10)
[2021-10-29] MEDS ORDERED: MIRALAX POWDER (1 DOSE 17 G) ONE (19:14)
[2021-10-29] MEDS ORDERED: MIRALAX POWDER (1 DOSE 17 G) PO SCH (21:00)
[2021-10-30] MEDS: FLAGYL IV PREMIX 500 MG BAG 500 MG/100 ML BAG IV SCH ×2 (02:07→07:59)
[2021-10-30 06:14] LABS: BASOPHILS % (AUTO) 0.6 % (0.2-1.0); EOSINOPHILS # (AUTO) 0.1 x10^3/uL (0.0-0.2); EOSINOPHILS % (AUTO) 2.8 % (0.9-2.9); HEMATOCRIT 21.4 % (36.0-47.0); HEMOGLOBIN 7.8 g/dL (12.0-16.0); LYMPHOCYTES # (AUTO) 0.7 X10^3/uL (1.3-2.9); LYMPHOCYTES % (AUTO) 30.5 % (21.0-51.0); MEAN CORPUSCULAR HEMOGLOBIN 40.6 pg (27.0-34.0); MEAN CORPUSCULAR HGB CONC 36.3 g/dL (33.0-35.0); MEAN CORPUSCULAR VOLUME 111.7 fL (80.0-100.0); MEAN PLATELET VOLUME 7.9 fL (7.4-11.0); MONOCYTES # (AUTO) 0.3 x10^3/uL (0.3-0.8); MONOCYTES % (AUTO) 15.8 % (0.0-13.0); NEUTROPHILS # (AUTO) 1.1 x10^3/uL (2.2-4.8); NEUTROPHILS % (AUTO) 50.3 % (42.0-75.0); RED BLOOD COUNT 1.92 X10^6/uL (3.5-5.4); RED CELL DISTRIBUTION WIDTH 15.9 % (11.6-16.5); WHITE BLOOD COUNT 2.2 X10^3/uL (3.6-10.0)
[2021-10-30 06:15] LABS: AMMONIA 50 umol/L (11-32)
[2021-10-30 06:17] LABS: ALANINE AMINOTRANSFERASE 54 Units/L (12-78); ALBUMIN 2.9 g/dL (3.4-5.0); ALKALINE PHOSPHATASE 232 Units/L (46-116); ASPARTATE AMINO TRANSFERASE 54 Units/L (15-37); BLOOD UREA NITROGEN 39 mg/dL (7-18); CALCIUM 7.7 mg/dL (8.5-10.1); CARBON DIOXIDE 24.1 mmol/L (21-32); CHLORIDE 106 mmol/L (98-107); COR CA(FOR HYPOALB) 8.6 mg/dL (8.5-10.1); COR NA(FOR HYPERGLY) 144 mmol/L (136-145); CREATININE 0.91 mg/dL (0.55-1.02); SODIUM 143 mmol/L (136-145); TOTAL PROTEIN 5.3 g/dL (6.4-8.2); eGFR NON BLACK RACES > 60 (>60)
[2021-10-30 06:59] LABS: BAND NEUTROPHILS % 4 % (0-10)
[2021-10-30 07:00] LABS: PLATELET MORPHOLOGY COMMENT NORMAL (NORMAL)
[2021-10-30] MEDS: NS 1,000 ML IV 1,000 ML IV SCH (07:09)
[2021-10-30] MEDS ORDERED: K-DUR TAB 20 MEQ PO ONE (08:21)
[2021-10-30] MEDS: ACCUNEB 1.25 MG NEBULE NEB PRN (09:20)
[2021-10-30] MEDS ORDERED: K-DUR TAB 20 MEQ PO NR (11:00)
[2021-10-30] MEDS: MAGNESIUM SULFATE 1 GRAM/100 mL PREMIX 1 G/100 ML BAG IV PRN ×2 (11:04→11:59)
--- NOTE | 2021-10-30 11:55 | DR.H&P ---
H&P History & Physical for Day of: H&P Date: 10/28/21 Chief Complaint Chief Complaint: AMS Allergies Allergies Allergy/AdvReac Type Severity Reaction Status Date / Time aspirin Allergy Verified 07/28/21 12:48 codeine Allergy Verified 07/28/21 12:48 iodine Allergy Verified 07/28/21 12:48 latex Allergy Verified 07/28/21 12:48 mushroom Allergy Verified 07/28/21 13:28 NSAIDS (Non-Steroidal Allergy Verified 07/28/21 12:48 Anti-Inflamma Penicillins Allergy Verified 07/28/21 12:48 rice Allergy Verified 07/28/21 13:28 Sulfa (Sulfonamide Allergy Verified 07/28/21 12:48 Antibiotics) [SULFA] History of Present Illness History of Present Illness: This is a 65 year-old white female with multiple recent hospitalizations for hepatic encephalopathy. She was brought to [facility] ED for AMS. Her ammonia level was checked in the ED and it was elevated at 108. The daughter reported that she was unable to take her medications on the previous night because she was confused. This morning she was not responding to anything but painful stimuli. Past Medical History Past Medical History: Diabetes and Liver Disease Additional Medical History: Vertigo Past Surgical History Surgical History: Hysterectomy and Ortho Surgery Additional Surgical History: Gastric bypass Family History Family Medical History: Diabetes Mellitus and Coronary Artery Disease Social History Does patient currently use any type of tobacco product: No Have you used tobacco products in the last 12 months: No Type of Tobacco Use: None Does any household member use tobacco: No Alcohol Use: None Drug Use: None Medications Home Medications: aspirin Allergy (Verified 07/28/21 12:48) codeine Allergy (Verified 07/28/21 12:48) iodine Allergy (Verified 07/28/21 12:48) latex Allergy (Verified 07/28/21 12:48) mushroom Allergy (Verified 07/28/21 13:28) NSAIDS (Non-Steroidal Anti-Inflamma Allergy (Verified 07/28/21 12:48) Penicillins Allergy (Verified 07/28/21 12:48) rice Allergy (Verified 07/28/21 13:28) Sulfa (Sulfonamide Antibiotics) [SULFA] Allergy (Verified 07/28/21 12:48) Labs Result Diagrams: 10/30/21 05:28 10/30/21 05:28 Labs: 10/28/21 09:27 Blood Blood Culture - Preliminary 10/28/21 09:18 Blood Blood Culture - Preliminary Laboratory WBC 2.2 X10^3/uL (3.6-10.0) L 10/30/21 05:28 RBC 1.92 X10^6/uL (3.5-5.4) L 10/30/21 05:28 Hgb 7.8 g/dL (12.0-16.0) L 10/30/21 05:28 Hct 21.4 % (36.0-47.0) L 10/30/21 05:28 MCV 111.7 fL (80.0-100.0) H 10/30/21 05:28 MCH 40.6 pg (27.0-34.0) H 10/30/21 05:28 MCHC 36.3 g/dL (33.0-35.0) H 10/30/21 05:28 RDW 15.9 % (11.6-16.5) 10/30/21 05:28 Plt Count 98 X10^3/uL (150.0-450.0) L 10/30/21 05:28 Plt Count Comment Decreased (ADEQUATE) A 10/30/21 05:28 MPV 7.9 fL (7.4-11.0) 10/30/21 05:28 Neut % (Auto) 50.3 % (42.0-75.0) 10/30/21 05:28 Lymph % (Auto) 30.5 % (21.0-51.0) 10/30/21 05:28 [place] % (Auto) 15.8 % (0.0-13.0) H 10/30/21 05:28 Eos % (Auto) 2.8 % (0.9-2.9) 10/30/21 05:28 Baso % (Auto) 0.6 % (0.2-1.0) 10/30/21 05:28 Neut # (Auto) 1.1 x10^3/uL (2.2-4.8) L 10/30/21 05:28 Lymph # (Auto) 0.7 X10^3/uL (1.3-2.9) L 10/30/21 05:28 [place] # (Auto) 0.3 x10^3/uL (0.3-0.8) 10/30/21 05:28 Eos # (Auto) 0.1 x10^3/uL (0.0-0.2) 10/30/21 05:28 Baso # (Auto) 0.0 X10^3/uL (0.0-0.1) 10/30/21 05:28 Absolute Nucleated RBC 0.1 /100WBC 10/30/21 05:28 Total Counted 25 10/30/21 05:28 Neutrophils % (Manual) 60 % (39-76) 10/30/21 05:28 Band Neutrophils % 4 % (0-10) 10/30/21 05:28 Lymphocytes % (Manual) 28 % (13-43) 10/30/21 05:28 Monocytes % (Manual) 8 % (4-9) 10/30/21 05:28 Plt Morphology Comment Normal (NORMAL) 10/30/21 05:28 RBC Morphology Abnormal (NORMAL) A 10/30/21 05:28 Poikilocytosis Slight A 10/28/21 09:18 Anisocytosis 1+ A 10/28/21 09:18 Macrocytosis 2+ A 10/30/21 05:28 Helmet Cells Present 10/28/21 09:18 Schistocytes Present 10/28/21 09:18 PT 16.3 SECONDS (11.8-14.3) 10/29/21 05:05 INR Target Range - 10/29/21 05:05 INR 1.38 (0.8-1.3) H 10/29/21 05:05 APTT 28.5 SECONDS (22.9-36.5) 10/29/21 05:05 PTT Comment - 10/29/21 05:05 Sodium 143 mmol/L (136-145) 10/30/21 05:28 Corrected Sodium 144 mmol/L (136-145) 10/30/21 05:28 Potassium 3.4 mmol/L (3.5-5.1) L 10/30/21 05:28 Chloride 106 mmol/L (98-107) 10/30/21 05:28 Carbon Dioxide 24.1 mmol/L (21-32) 10/30/21 05:28 BUN 39 mg/dL (7-18) H 10/30/21 05:28 Creatinine 0.91 mg/dL (0.55-1.02) 10/30/21 05:28 Est GFR (MDRD) Af Amer > 60 (>60) 10/30/21 05:28 Est GFR (MDRD) Non-Af > 60 (>60) 10/30/21 05:28 Glucose 139 mg/dL (65-99) H 10/30/21 05:28 POC Glucose (mg/dL) 130 mg/dL (65-99) H 10/30/21 05:14 Lactic Acid 1.6 mmol/L (0.4-2.0) 10/28/21 19:45 Calcium 7.7 mg/dL (8.5-10.1) L 10/30/21 05:28 Corrected Calcium 8.6 mg/dL (8.5-10.1) 10/30/21 05:28 Magnesium 1.5 mg/dL (1.7-2.9) L 10/30/21 05:28 Total Bilirubin 5.70 mg/dL (0.2-1.0) H 10/30/21 05:28 AST 54 Units/L (15-37) H 10/30/21 05:28 ALT 54 Units/L (12-78) 10/30/21 05:28 Alkaline Phosphatase 232 Units/L (46-116) H 10/30/21 05:28 Ammonia 50 umol/L (11-32) H 10/30/21 05:28 Creatine Kinase 31 Units/L (26-192) 10/28/21 09:18 CK-MB (CK-2) 1.0 ng/mL (0-4.0) 10/28/21 09:18 CK/CKMB % Calc 3.2 % (<4) 10/28/21 09:18 Troponin I High Sens 11.2 ng/L (4.0-60.0) 10/28/21 09:18 Total Protein 5.3 g/dL (6.4-8.2) L 10/30/21 05:28 Albumin 2.9 g/dL (3.4-5.0) L 10/30/21 05:28 Globulin 2.4 g/dL (2.5-4.5) L 10/30/21 05:28 Albumin/Globulin Ratio 1.2 Ratio (1.1-2.1) 10/30/21 05:28 Amylase 93 Units/L (25-115) 10/28/21 09:58 Lipase 221 Units/L (73-393) 10/28/21 09:58 Specimen Type Catherized urine 10/28/21 09:20 Urine Color Yellow (YELLOW) 10/28/21 09:20 Urine Appearance Clear (CLEAR) 10/28/21 09:20 Urine pH 6.0 (5.0 - 8.0) 10/28/21 09:20 Ur Specific [place] 1.020 (1.000-1.030) 10/28/21 09:20 Urine Protein Negative (NEGATIVE) 10/28/21 09:20 Urine Glucose (UA) Negative (NEGATIVE) 10/28/21 09:20 Urine Ketones Negative (NEGATIVE) 10/28/21 09:20 Urine Occult Blood Negative (NEGATIVE) 10/28/21 09:20 Urine Nitrite Negative (NEGATIVE) 10/28/21 09:20 Urine Bilirubin Negative (NEGATIVE) 10/28/21 09:20 Urine Urobilinogen Normal (NORMAL) 10/28/21 09:20 Ur Leukocyte Esterase 1+ (NEGATIVE) 10/28/21 09:20 Urine RBC None seen /HPF (0-3) 10/28/21 09:20 Urine WBC 0-2 /HPF (0-5) 10/28/21 09:20 Ur Squamous Epith Cells Negative /HPF (NEGATIVE) 10/28/21 09:20 Calcium Oxalate Crystal Few /HPF (NEGATIVE) 10/28/21 09:20 Urine Bacteria Trace /HPF (NEGATIVE) 10/28/21 09:20 Ur Culture Indicated? No/not indicated 10/28/21 09:20 Urine Opiates Screen Negative (NEG=<300) 10/28/21 09:20 Urine Methadone Screen Negative (NEG=<300) 10/28/21 09:20 Ur Barbiturates Screen Negative (NEG=<200) 10/28/21 09:20 Ur Phencyclidine Scrn Negative (NEG=<25) 10/28/21 09:20 Ur Amphetamines Screen Negative (NEG=<1000) 10/28/21 09:20 U Benzodiazepines Scrn Negative (NEG=<200) 10/28/21 09:20 Urine Cocaine Screen Negative (NEG=<300) 10/28/21 09:20 U Marijuana (THC) Screen Negative (NEG=<50) 10/28/21 09:20 SARS CoV-2 RNA Rapid NATALYA Negative (NEGATIVE) 10/28/21 10:22 Review of Systems Constitutional: Weakness and Other Eyes: No Symptoms Reported ENT: No Symptoms Reported Respiratory: No Symptoms Reported Cardiovascular: No Symptoms Reported Gastrointestinal: Constipation Genitourinary: No Symptoms Reported Musculoskeletal: No Symptoms Reported Skin: No Symptoms Reported Neurological: Weakness and Confusion Physical Exam Vital Signs: Temperature 99.2 F Pulse Rate [Left Radial] 91 Pulse Rate 93 Respiratory Rate 18 Blood Pressure [Right Arm] 134/63 Blood Pressure 97/47 O2 Sat by Pulse Oximetry 100 Oriented: Not Oriented Eyes: Normal Ear: Normal Nose: Normal Throat: Normal Respiratory: Clear Throughout Cardiovascular: Normal : Normal Auscultation: Bowel Sounds: Normal Palpation: Normal Tenderness: Normal Skin: Other (icteric) Musculoskeletal: Instability Psychiatric: Normal Mood Description: Calm Affect: Quiet Speech Pattern: Unclear Assessment/Plan (1) Encephalopathy, hepatic: Status: Acute Plan: Lactulose per NGT (2) Acute hyponatremia: Status: Acute Plan: NS IVF (3) Altered mental status: Status: Acute Plan: Expected to clear with normalization of ammonia level. (4) Acute uremia: Status: Acute Plan: IVF (5) Hypothermia: Status: Acute Plan: Warming blankets (6) Lactic acidemia: Status: Acute (7) Chronic liver failure: Status: Acute Plan: Lactulose qid (8) Dehydration: Status: Acute Plan: NS IVF (9) Anemia, chronic disease: Status: Acute Plan: Monitor daily hemoglobin. (10) DM2 (diabetes mellitus, type 2): Status: Acute Plan: Sliding scale regular insulin. Review H&P Reviewed: Yes Patient was examined?: Yes
[2021-10-30] MEDS ORDERED: NovoLIN R (or HumuLIN R) SUBCUT PRN (12:03)
[2021-10-30 12:36] VITALS: BP 145/65
--- NOTE | 2021-11-14 14:07 | PCM.DCPLAN ---
DISCHARGE SUMMARY Admission Date Date of Admission: 10/28/21 Discharge Date Discharge Date: 10/30/21 Admission Diagnoses (1) Encephalopathy, hepatic: Status: Acute (2) Acute hyponatremia: Status: Acute (3) Altered mental status: Status: Acute (4) Acute uremia: Status: Acute (5) Hypothermia: Status: Acute (6) Lactic acidemia: Status: Acute (7) Chronic liver failure: Status: Chronic (8) Dehydration: Status: Resolved (9) Anemia, chronic disease: Status: Chronic (10) DM2 (diabetes mellitus, type 2): Status: Acute Discharge Diagnoses Discharge Diagnosis: 1. Hepatic Encephalopathy resolved 2. Chronic Liver Failure. 3. Hypokalmeia 4. Anemia of Chronic disease. 5. Dehydration- resolved 6. DM2 7. AMS resolved 8. Uremia- resolved Discharge Medications Discharge Medications: Prescriptions: Hospital Course Vital Signs: Temperature 98.8 F Pulse Rate [Left Radial] 90 Pulse Rate 93 Respiratory Rate 24 Blood Pressure [Right Arm] 145/65 Blood Pressure 97/47 O2 Sat by Pulse Oximetry 95 Latest Lab Results: Laboratory Last Values WBC 2.2 X10^3/uL (3.6-10.0) L 10/30/21 05:28 RBC 1.92 X10^6/uL (3.5-5.4) L 10/30/21 05:28 Hgb 7.8 g/dL (12.0-16.0) L 10/30/21 05:28 Hct 21.4 % (36.0-47.0) L 10/30/21 05:28 MCV 111.7 fL (80.0-100.0) H 10/30/21 05:28 MCH 40.6 pg (27.0-34.0) H 10/30/21 05:28 MCHC 36.3 g/dL (33.0-35.0) H 10/30/21 05:28 RDW 15.9 % (11.6-16.5) 10/30/21 05:28 Plt Count 98 X10^3/uL (150.0-450.0) L 10/30/21 05:28 Plt Count Comment Decreased (ADEQUATE) A 10/30/21 05:28 MPV 7.9 fL (7.4-11.0) 10/30/21 05:28 Neut % (Auto) 50.3 % (42.0-75.0) 10/30/21 05:28 Lymph % (Auto) 30.5 % (21.0-51.0) 10/30/21 05:28 [place] % (Auto) 15.8 % (0.0-13.0) H 10/30/21 05:28 Eos % (Auto) 2.8 % (0.9-2.9) 10/30/21 05:28 Baso % (Auto) 0.6 % (0.2-1.0) 10/30/21 05:28 Neut # (Auto) 1.1 x10^3/uL (2.2-4.8) L 10/30/21 05:28 Lymph # (Auto) 0.7 X10^3/uL (1.3-2.9) L 10/30/21 05:28 [place] # (Auto) 0.3 x10^3/uL (0.3-0.8) 10/30/21 05:28 Eos # (Auto) 0.1 x10^3/uL (0.0-0.2) 10/30/21 05:28 Baso # (Auto) 0.0 X10^3/uL (0.0-0.1) 10/30/21 05:28 Absolute Nucleated RBC 0.1 /100WBC 10/30/21 05:28 Total Counted 25 10/30/21 05:28 Neutrophils % (Manual) 60 % (39-76) 10/30/21 05:28 Band Neutrophils % 4 % (0-10) 10/30/21 05:28 Lymphocytes % (Manual) 28 % (13-43) 10/30/21 05:28 Monocytes % (Manual) 8 % (4-9) 10/30/21 05:28 Plt Morphology Comment Normal (NORMAL) 10/30/21 05:28 RBC Morphology Abnormal (NORMAL) A 10/30/21 05:28 Poikilocytosis Slight A 10/28/21 09:18 Anisocytosis 1+ A 10/28/21 09:18 Macrocytosis 2+ A 10/30/21 05:28 Helmet Cells Present 10/28/21 09:18 Schistocytes Present 10/28/21 09:18 PT 16.3 SECONDS (11.8-14.3) 10/29/21 05:05 INR Target Range - 10/29/21 05:05 INR 1.38 (0.8-1.3) H 10/29/21 05:05 APTT 28.5 SECONDS (22.9-36.5) 10/29/21 05:05 PTT Comment - 10/29/21 05:05 Sodium 143 mmol/L (136-145) 10/30/21 05:28 Corrected Sodium 144 mmol/L (136-145) 10/30/21 05:28 Potassium 3.4 mmol/L (3.5-5.1) L 10/30/21 05:28 Chloride 106 mmol/L (98-107) 10/30/21 05:28 Carbon Dioxide 24.1 mmol/L (21-32) 10/30/21 05:28 BUN 39 mg/dL (7-18) H 10/30/21 05:28 Creatinine 0.91 mg/dL (0.55-1.02) 10/30/21 05:28 Est GFR (MDRD) Af Amer > 60 (>60) 10/30/21 05:28 Est GFR (MDRD) Non-Af > 60 (>60) 10/30/21 05:28 Glucose 139 mg/dL (65-99) H 10/30/21 05:28 POC Glucose (mg/dL) 235 mg/dL (65-99) H 10/30/21 11:33 Lactic Acid 1.6 mmol/L (0.4-2.0) 10/28/21 19:45 Calcium 7.7 mg/dL (8.5-10.1) L 10/30/21 05:28 Corrected Calcium 8.6 mg/dL (8.5-10.1) 10/30/21 05:28 Magnesium 1.5 mg/dL (1.7-2.9) L 10/30/21 05:28 Total Bilirubin 5.70 mg/dL (0.2-1.0) H 10/30/21 05:28 AST 54 Units/L (15-37) H 10/30/21 05:28 ALT 54 Units/L (12-78) 10/30/21 05:28 Alkaline Phosphatase 232 Units/L (46-116) H 10/30/21 05:28 Ammonia 50 umol/L (11-32) H 10/30/21 05:28 Creatine Kinase 31 Units/L (26-192) 10/28/21 09:18 CK-MB (CK-2) 1.0 ng/mL (0-4.0) 10/28/21 09:18 CK/CKMB % Calc 3.2 % (<4) 10/28/21 09:18 Troponin I High Sens 11.2 ng/L (4.0-60.0) 10/28/21 09:18 Total Protein 5.3 g/dL (6.4-8.2) L 10/30/21 05:28 Albumin 2.9 g/dL (3.4-5.0) L 10/30/21 05:28 Globulin 2.4 g/dL (2.5-4.5) L 10/30/21 05:28 Albumin/Globulin Ratio 1.2 Ratio (1.1-2.1) 10/30/21 05:28 Amylase 93 Units/L (25-115) 10/28/21 09:58 Lipase 221 Units/L (73-393) 10/28/21 09:58 Specimen Type Catherized urine 10/28/21 09:20 Urine Color Yellow (YELLOW) 10/28/21 09:20 Urine Appearance Clear (CLEAR) 10/28/21 09:20 Urine pH 6.0 (5.0 - 8.0) 10/28/21 09:20 Ur Specific [place] 1.020 (1.000-1.030) 10/28/21 09:20 Urine Protein Negative (NEGATIVE) 10/28/21 09:20 Urine Glucose (UA) Negative (NEGATIVE) 10/28/21 09:20 Urine Ketones Negative (NEGATIVE) 10/28/21 09:20 Urine Occult Blood Negative (NEGATIVE) 10/28/21 09:20 Urine Nitrite Negative (NEGATIVE) 10/28/21 09:20 Urine Bilirubin Negative (NEGATIVE) 10/28/21 09:20 Urine Urobilinogen Normal (NORMAL) 10/28/21 09:20 Ur Leukocyte Esterase 1+ (NEGATIVE) 10/28/21 09:20 Urine RBC None seen /HPF (0-3) 10/28/21 09:20 Urine WBC 0-2 /HPF (0-5) 10/28/21 09:20 Ur Squamous Epith Cells Negative /HPF (NEGATIVE) 10/28/21 09:20 Calcium Oxalate Crystal Few /HPF (NEGATIVE) 10/28/21 09:20 Urine Bacteria Trace /HPF (NEGATIVE) 10/28/21 09:20 Ur Culture Indicated? No/not indicated 10/28/21 09:20 Urine Opiates Screen Negative (NEG=<300) 10/28/21 09:20 Urine Methadone Screen Negative (NEG=<300) 10/28/21 09:20 Ur Barbiturates Screen Negative (NEG=<200) 10/28/21 09:20 Ur Phencyclidine Scrn Negative (NEG=<25) 10/28/21 09:20 Ur Amphetamines Screen Negative (NEG=<1000) 10/28/21 09:20 U Benzodiazepines Scrn Negative (NEG=<200) 10/28/21 09:20 Urine Cocaine Screen Negative (NEG=<300) 10/28/21 09:20 U Marijuana (THC) Screen Negative (NEG=<50) 10/28/21 09:20 SARS CoV-2 RNA Rapid NATALYA Negative (NEGATIVE) 10/28/21 10:22 Hospital Course: Following the admission, this patient was given IV hydration with normal saline. She continued to receive po lactulose. By the following next morning she still had some confusion. Her Ammonia level trended down she was not back at her Baseline at this time. Her potassium was low in which she was given a sliding scale potassium replacement protocol. Morning of the third day she was alert and responding to questions appropriately. She reports that she felt like going home. Ammonia level has come down to 50 which is around her normal baseline. Her Bottle signs remained stable throughout the hospital stay. She was discharged home in stable condition. Instructions Instructions: Hepatic Encephalopathy Hypokalemia Dehydration, Adult, [id number] Form - Daily Diabetes Record Liver Failure Ammonia Test Hyponatremia, Djdo-of-Pazo Delirium Blood Glucose Monitoring, Adult Forms: Excuse From Work or School Precautions for COVID19 [facility] Social Distancing
== END 2021-10-30 13:55 | disposition home health service (06) | DRG 442 ==
LOC: SUPCPDRO → ER 09:03 → MED/SURG 11:52
PROVIDERS: ADMIT Internal Medicine; ATTEND Family Medicine
DX: E86.0 Dehydration; E87.1 Hypo-osmolality and hyponatremia; L89.159 Pressure ulcer of sacral region, unspecified stage; N17.8 Other acute kidney failure; R79.1 Abnormal coagulation profile; R41.82 Altered mental status, unspecified; Z20.822 Contact with and (suspected) exposure to COVID-19; K72.10 Chronic hepatic failure without coma; E11.65 Type 2 diabetes mellitus with hyperglycemia; D63.8 Anemia in other chronic diseases classified elsewhere; T68.XXXA Hypothermia, initial encounter; R94.31 Abnormal electrocardiogram [ECG] [EKG]; K72.00 Acute and subacute hepatic failure without coma; R53.1 Weakness